=== PATIENT | male | born 1945 | race Caucasian/White ===

== ENCOUNTER → 2016-08-02 | Outpatient (CLI) | payer MEDICARE ==
--- NOTE | 2016-08-02 16:29 | US ---
EXAMINATION TYPE: US thyroid st tissue head/neck DATE OF EXAM: 08/02/2016 4:01 PM COMPARISON: 01/05/2016 CLINICAL HISTORY: Thyroid Nodule E04.1. Follow up thyroid nodules GLAND SIZE: Right Lobe: 4.5 x 1.8 x 2.4cm Overall Parenchyma: heterogenous Left Lobe: 4.5 x 1.9 x 1.8cm Overall Parenchyma: heterogeneous Isthmus Thickness: 0.8cm NODULES RIGHT: # of nodules measured on right: 4 1. 1.4 X 0.9 x 1.2 cm hypoechoic cystic nodule at the upper pole with well-defined margins. This no dule is wider than tall and shows no intranodular vascularity. Prior size: 1.1 x 1.1 x 0.9 cm 2. 1.1 X 0.7 x 0.8 cm hypoechoic cystic nodule at the mid pole with well-defined margins. This nodul e is wider than tall and shows no intranodular vascularity. Prior size: 0.9 x 0.8 x 0.6 cm 3. 0.7 X 0.7 x 0.8 cm hypoechoic cystic nodule at the mid pole with well-defined margins. This nodul e is wider than tall and shows no intranodular vascularity. Prior size: 0.6 x 0.6 x 0.6 cm 4. 1.8 X 1.1 x 1.7 cm hypoechoic mixed nodule at the lower pole with well-defined margins. This nodu le is wider than tall and shows intranodular vascularity. Prior size: 1.5 x 1.6 x 0.9 cm LEFT: # of nodules measured on left: 2 1. 0.8 X 0.7 x 0.7 cm hypoechoic solid nodule at the mid pole with well-defined margins. This nodul e is wider than tall and shows intranodular vascularity. Prior size: 0.9 x 0.7 x 0.6 cm 2. 0.9 X 0.6 x 0.9 cm hypoechoic cystic nodule at the lower pole with well-defined margins. This nod ule is taller than wide and shows no intranodular vascularity. Prior size: 0.8 x 0.9 x 0.9 cm ISTHMUS: # of nodules measured in the isthmus: 0 IMPRESSION: heterogeneous thyroid with bilateral nodules describe above, bilateral neck scanned, no abnormal lymphadenopathy noted.
== END | disposition home or self-care (01) ==
LOC: RADUSWWP 15:34
PROVIDERS: ATTEND Otolaryngology
DX: E04.2 Nontoxic multinodular goiter (principal)
CPT/HCPCS: 76536

== ENCOUNTER 2016-08-21 11:43 | Day surgery (SDC) | payer MEDICARE ==
[2016-08-21 12:49] VITALS: RESP 14; TEMP 97.7
[2016-08-21 14:01] VITALS: BP 140/76; PULSE 69
--- NOTE | 2016-08-21 14:28 | US ---
ULTRASOUND GUIDED FNA THYROID BIOPSY: CLINICAL HISTORY: 1.8 cm right lobe thyroid hypoechoic nodule and 1.4 cm cystic nodule right lobe thy roid FINDINGS: The procedure was explained to the patient. The risks, complications, benefits and alternatives were discussed and any questions were answered. Informed consent was obtained. Patient was placed supin e on the ultrasound table and prepped and draped in the usual sterile fashion. Utilizing a 25 gauge needle, five passes were made into the mixed nodule within the lower pole measuring 1.8 cm. A single pass was made with evidence of the larger simple cyst within the right lobe measuring 1.4 cm. Additi onal cyst measuring 1 cm had a benign simple appearing cyst appearance and was not aspirated. Patient was stable throughout the procedure. Pathology is pending. All elements of maximal barrier technique were utilized. IMPRESSION: 1. Successful ultrasound guided FNA thyroid biopsy of two lesions within the right thyroid.
== END 2016-08-21 14:10 | disposition home or self-care (01) ==
LOC: RADPROMAIN 11:43
PROVIDERS: ATTEND Otolaryngology
DX: E04.2 Nontoxic multinodular goiter (principal)
CPT/HCPCS: 10022; 76942; 88173; 88305

== ENCOUNTER 2017-08-31 12:55 | Observation (INO) | payer MEDICARE ==
[2017-08-31] MEDS ORDERED: SODIUM CHLORIDE 0.9% 1,000 ML IV STA (13:27)
[2017-08-31] MEDS ORDERED: ASPIRIN 81 MG PO STA (13:27)
[2017-08-31] MEDS ORDERED: NITROGLYCERIN SL TABS 0.4 MG TAB SUBLINGUAL STA (13:27)
[2017-08-31 13:50] LABS: Basophils % (A) 1 %; Eosinophils # (A) 0.3 k/uL (0-0.7); Eosinophils % (A) 4 %; HCT 37.8 % (39.0-53.0); HGB 12.2 gm/dL (13.0-17.5); Lymphocytes # (A) 1.5 k/uL (1.0-4.8); Lymphocytes % (A) 24 %; MCH 30.6 pg (25.0-35.0); MCHC 32.3 g/dL (31.0-37.0); MCV 94.6 fL (80.0-100.0); Mean Platelet Volume 8.5; Monocytes # (A) 0.4 k/uL (0-1.0); Monocytes % (A) 6 %; Neutrophils % (A) 63 %; Platelet Count 213 k/uL (150-450); RDW 11.8 % (11.5-15.5); WBC 6.3 k/uL (3.8-10.6)
[2017-08-31 13:59] LABS: Anion Gap 9 mmol/L; Blood Urea Nitrogen 16 mg/dL (9-20); Calcium 9.6 mg/dL (8.4-10.2); Carbon Dioxide 26 mmol/L (22-30); Chloride 108 mmol/L (98-107); Glucose 108 mg/dL (74-99); Magnesium 1.7 mg/dL (1.6-2.3); Potassium 4.4 mmol/L (3.5-5.1); Sodium 143 mmol/L (137-145); Total Protein 6.4 g/dL (6.3-8.2)
--- NOTE | 2017-08-31 13:59 | ED ---
General Adult HPI - General Chief complaint: Chest Pain Stated complaint: Chest Pain Time Seen by Provider: 08/31/17 13:16 Source: patient, RN notes reviewed Mode of arrival: wheelchair Limitations: no limitations - History of Present Illness Initial comments: Patient 72-year-old male who presents emergency room today with a chief complaint of chest pain. He does with that her symptoms been off and on over the past week. He does not that he was having increased pain this morning was told that he should come to the hospital. Patient states that his sharp, dull, and achy type pain. Patient also admits to some symptoms of nausea and abdominal pain at times. He denies anything that seems to make it better or worse. Patient denies any other associated symptoms. Patient denies any recent fever, chills, shortness of breath,vomiting, numbness or tingling, dysuria or hematuria, constipation or diarrhea, headaches or visual changes, or any other complaints. - Related Data Home Medications Medication Instructions Recorded Confirmed Aspirin 81 mg PO DAILY 11/26/14 08/31/17 Multivitamin [Men's Multi-Vitamin] 1 tab PO DAILY 11/26/14 08/31/17 Omeprazole [PriLOSEC] 20 mg PO DAILY 11/26/14 08/31/17 Losartan Potassium [Cozaar] 100 mg PO DAILY 08/04/15 08/31/17 Tamsulosin [Flomax] 0.4 mg PO DAILY 06/27/16 08/31/17 Ergocalciferol (Vitamin D2) 50,000 unit PO Q7D 08/31/17 08/31/17 [Vitamin D2] Previous Rx's Medication Instructions Recorded Fenofibrate Nanocrystallized 145 mg PO DAILY #30 tablet 08/05/15 [Tricor] Allergies Allergy/AdvReac Type Severity Reaction Status Date / Time yeast, dried [yeast] Allergy "PER Verified 08/31/17 13:25 ALLERGY TEST" Review of Systems ROS Statement: Those systems with pertinent positive or pertinent negative responses have been documented in the HPI. ROS Other: All systems not noted in ROS Statement are negative. Past Medical History Past Medical History: GERD/Reflux, Hyperlipidemia, Hypertension, Thyroid Disorder History of Any Multi-Drug Resistant Organisms: None Reported Past Surgical History: Cholecystectomy, Heart Catheterization Additional Past Surgical History / Comment(s): thyroid biopsy, heart cath x3 in past no stents - per pt. Past Anesthesia/Blood Transfusion Reactions: No Reported Reaction Past Psychological History: No Psychological Hx Reported Smoking Status: Former smoker Past Alcohol Use History: Occasional Past Drug Use History: None Reported - Past Family History Father Family Medical History: No Reported History Mother Family Medical History: No Reported History General Exam - General Exam Comments Initial Comments: General: The patient is awake and alert, in no distress, and does not appear acutely ill. Eye: Pupils are equal, round and reactive to light, extra-ocular movements are intact. No nystagmus. There is normal conjunctiva bilaterally. No signs of icterus. Ears, nose, mouth and throat: There are moist mucous membranes and no oral lesions. Neck: The neck is supple, there is no tenderness or JVD. Cardiovascular: There is a regular rate and rhythm. No murmur, rub or gallop is appreciated. Respiratory: Lungs are clear to auscultation, respirations are non-labored, breath sounds are equal. No wheezes, stridor, rales, or rhonchi. Gastrointestinal: Soft, non-distended, non-tender abdomen without masses or organomegaly noted. There is no rebound or guarding present. No CVA tenderness. Musculoskeletal: Normal ROM, no tenderness. Strength 5/5. Sensation intact. Pulses equal bilaterally 2+. Neurological: A&O x 3. CN II-XII intact, There are no obvious motor or sensory deficits. Coordination appears grossly intact. Speech is normal. Skin: Skin is warm and dry and no rashes or lesions are noted. Psychiatric: Cooperative, appropriate mood & affect, normal judgment. Limitations: no limitations Course Vital Signs 08/31/17 08/31/17 08/31/17 12:56 14:11 14:15 Temperature 98.5 F Pulse Rate 82 74 78 Respiratory 18 16 16 Rate Blood Pressure 152/65 148/75 81/47 O2 Sat by Pulse 98 98 97 Oximetry 08/31/17 14:48 Temperature Pulse Rate 71 Respiratory 16 Rate Blood Pressure 128/78 O2 Sat by Pulse Oximetry EKG Findings - EKG Comments: EKG Findings:: EKG performed at 1312: Shows normal sinus rhythm at 72 bpm. [place] interval 140. QRS 74. QT/QTc is 366/400. No acute ST elevation. Medical Decision Making - Medical Decision Making Patient reexamined at this time shows no signs of distress. He was given a nitro tablet here in the emergency room which did relieve his chest pain. However, it did drop his blood pressure down in the 70s over 50s. He was given a 500 mL bolus and blood pressure is improved at this time currently 112/60's. Patient's initial set of cardiac enzymes are negative. He does admit that he's been having some pain off and on here the last few weeks. He does describe some unstable angina symptoms. Patient did have cardiac cath in June 2016. At this time patient will be admitted for observation and serial enzymes. - Lab Data Result diagrams: 08/31/17 13:30 08/31/17 13:30 Lab Results 08/31/17 08/31/17 08/31/17 Range/Units 13:30 13:30 13:30 WBC 6.3 (3.8-10.6) k/uL RBC 4.00 L (4.30-5.90) m/uL Hgb 12.2 L (13.0-17.5) gm/dL Hct 37.8 L (39.0-53.0) % MCV 94.6 (80.0-100.0) fL MCH 30.6 (25.0-35.0) pg MCHC 32.3 (31.0-37.0) g/dL RDW 11.8 (11.5-15.5) % Plt Count 213 (150-450) k/uL Neutrophils % 63 % Lymphocytes % 24 % Monocytes % 6 % Eosinophils % 4 % Basophils % 1 % Neutrophils # 4.0 (1.3-7.7) k/uL Lymphocytes # 1.5 (1.0-4.8) k/uL Monocytes # 0.4 (0-1.0) k/uL Eosinophils # 0.3 (0-0.7) k/uL Basophils # 0.0 (0-0.2) k/uL PT (9.0-12.0) sec INR (<1.2) APTT (22.0-30.0) sec Sodium 143 (137-145) mmol/L Potassium 4.4 (3.5-5.1) mmol/L Chloride 108 H (98-107) mmol/L Carbon Dioxide 26 (22-30) mmol/L Anion Gap 9 mmol/L BUN 16 (9-20) mg/dL Creatinine 1.20 (0.66-1.25) mg/dL Est GFR (MDRD) Af Amer >60 (>60 ml/min/1.73 sqM) Est GFR (MDRD) Non-Af 60 (>60 ml/min/1.73 sqM) Glucose 108 H (74-99) mg/dL Calcium 9.6 (8.4-10.2) mg/dL Magnesium 1.7 (1.6-2.3) mg/dL Total Bilirubin 0.4 (0.2-1.3) mg/dL AST 25 (17-59) U/L ALT 30 (21-72) U/L Alkaline Phosphatase 53 (38-126) U/L Total Creatine Kinase 86 (55-170) U/L CK-MB (CK-2) 0.5 (0.0-2.4) ng/mL CK-MB (CK-2) Rel Index 0.6 Troponin I <0.012 (0.000-0.034) ng/mL Total Protein 6.4 (6.3-8.2) g/dL Albumin 3.9 (3.5-5.0) g/dL Amylase 46 (30-110) U/L Lipase 77 (23-300) U/L 08/31/17 Range/Units 13:30 WBC (3.8-10.6) k/uL RBC (4.30-5.90) m/uL Hgb (13.0-17.5) gm/dL Hct (39.0-53.0) % MCV (80.0-100.0) fL MCH (25.0-35.0) pg MCHC (31.0-37.0) g/dL RDW (11.5-15.5) % Plt Count (150-450) k/uL Neutrophils % % Lymphocytes % % Monocytes % % Eosinophils % % Basophils % % Neutrophils # (1.3-7.7) k/uL Lymphocytes # (1.0-4.8) k/uL Monocytes # (0-1.0) k/uL Eosinophils # (0-0.7) k/uL Basophils # (0-0.2) k/uL PT 10.1 (9.0-12.0) sec INR 1.0 (<1.2) APTT 23.0 (22.0-30.0) sec Sodium (137-145) mmol/L Potassium (3.5-5.1) mmol/L Chloride (98-107) mmol/L Carbon Dioxide (22-30) mmol/L Anion Gap mmol/L BUN (9-20) mg/dL Creatinine (0.66-1.25) mg/dL Est GFR (MDRD) Af Amer (>60 ml/min/1.73 sqM) Est GFR (MDRD) Non-Af (>60 ml/min/1.73 sqM) Glucose (74-99) mg/dL Calcium (8.4-10.2) mg/dL Magnesium (1.6-2.3) mg/dL Total Bilirubin (0.2-1.3) mg/dL AST (17-59) U/L ALT (21-72) U/L Alkaline Phosphatase (38-126) U/L Total Creatine Kinase (55-170) U/L CK-MB (CK-2) (0.0-2.4) ng/mL CK-MB (CK-2) Rel Index Troponin I (0.000-0.034) ng/mL Total Protein (6.3-8.2) g/dL Albumin (3.5-5.0) g/dL Amylase (30-110) U/L Lipase (23-300) U/L Disposition Clinical Impression: Chest pain Disposition: ADMITTED IP TO THIS [facility] Condition: Good Instructions: Chest Pain (ED) Referrals: Andres Brown MD [Primary Care Provider] - 1-2 days Time of Disposition: 15:00
[2017-08-31 14:00] LABS: ALT 30 U/L (21-72); AST 25 U/L (17-59); Albumin 3.9 g/dL (3.5-5.0); Alkaline Phosphatase 53 U/L (38-126); Amylase 46 U/L (30-110); Lipase 77 U/L (23-300); Total Bilirubin 0.4 mg/dL (0.2-1.3)
[2017-08-31 14:04] LABS: Prothrombin Time 10.1 sec (9.0-12.0)
--- NOTE | 2017-08-31 14:05 | XR ---
EXAMINATION TYPE: XR chest 2V DATE OF EXAM: 08/31/2017 HISTORY: Chest Pain. REFERENCE: Previous study dated 121. FINDINGS: The lungs are overinflated. The heart is normal in size. The lungs are clear. Pleural space are clear. IMPRESSION: COPD.
[2017-08-31 14:17] LABS: Creatine Kinase 86 U/L (55-170)
[2017-08-31 14:29] LABS: Creatine Kinase MB 0.5 ng/mL (0.0-2.4); Troponin I <0.012 ng/mL (0.000-0.034)
[2017-08-31] MEDS ORDERED: NITROGLYCERIN SL TABS 0.4 MG TAB SUBLINGUAL PRN (15:02)
[2017-08-31] MEDS ORDERED: SODIUM CHLORIDE 0.9% 1,000 ML IV ONE (15:02)
[2017-08-31] MEDS ORDERED: HEPARIN SODIUM,PORCINE 5,000 UNIT/ML 1 ML VIAL IV ONE (15:02)
[2017-08-31] MEDS ORDERED: HEPARIN SOD,PORK IN 0.45% NACL 25,000 UNIT in 0.45% NACL 1 500ML.BAG IV SCH (15:15)
[2017-08-31] MEDS ORDERED: MORPHINE SULFATE 4 MG/ML SYRINGE IV STA (15:32)
[2017-08-31] MEDS ORDERED: NITROGLYCERIN OINT 1 INCH/GM PACKET TOPICAL STA (16:13)
[2017-08-31 21:08] LABS: Creatine Kinase MB 0.4 ng/mL (0.0-2.4); Troponin I <0.012 ng/mL (0.000-0.034)
[2017-08-31 21:09] LABS: Creatine Kinase 78 U/L (55-170)
[2017-08-31] MEDS: HEPARIN SODIUM,PORCINE 5,000 UNIT/ML 1 ML VIAL IV PRN (22:15)
[2017-09-01 03:29] LABS: Basophils # (A) 0.1 k/uL (0-0.2); Basophils % (A) 1 %; Eosinophils # (A) 0.3 k/uL (0-0.7); Eosinophils % (A) 5 %; HCT 37.7 % (39.0-53.0); HGB 12.1 gm/dL (13.0-17.5); Lymphocytes # (A) 2.5 k/uL (1.0-4.8); Lymphocytes % (A) 46 %; MCH 29.9 pg (25.0-35.0); MCHC 32.2 g/dL (31.0-37.0); Mean Platelet Volume 9.2; Monocytes # (A) 0.3 k/uL (0-1.0); Monocytes % (A) 6 %; Neutrophils # (A) 2.3 k/uL (1.3-7.7); Neutrophils % (A) 41 %; Platelet Count 193 k/uL (150-450); RBC 4.05 m/uL (4.30-5.90); RDW 11.8 % (11.5-15.5); WBC 5.5 k/uL (3.8-10.6)
[2017-09-01 03:49] LABS: Creatine Kinase 71 U/L (55-170)
[2017-09-01 03:55] LABS: Cholesterol 181 mg/dL (<200); HDL Cholesterol 40 mg/dL (40-60); Triglycerides 197 mg/dL (<150)
[2017-09-01 03:56] LABS: LDL Cholesterol,Calculated 102 mg/dL (0-99)
[2017-09-01] MEDS: HEPARIN SODIUM,PORCINE 5,000 UNIT/ML 1 ML VIAL IV PRN (03:57)
[2017-09-01 04:02] LABS: Creatine Kinase MB 0.5 ng/mL (0.0-2.4); Troponin I <0.012 ng/mL (0.000-0.034)
[2017-09-01] MEDS ORDERED: TAMSULOSIN 0.4 MG CAP.ER.24H PO SCH (09:00)
[2017-09-01] MEDS ORDERED: MULTIVITAMINS, THERA 1 EACH TAB PO SCH (09:00)
[2017-09-01] MEDS ORDERED: ASPIRIN 325 MG TAB PO SCH (09:00)
[2017-09-01] MEDS ORDERED: ERGOCALCIFEROL 50,000 UNIT CAP PO SCH (09:00)
[2017-09-01] MEDS ORDERED: LOSARTAN 50 MG TAB PO SCH (09:00)
[2017-09-01] MEDS ORDERED: ASPIRIN 81 MG PO SCH (09:00)
[2017-09-01] MEDS ORDERED: FENOFIBRATE 160 MG TAB PO SCH (09:30)
[2017-09-01] MEDS ORDERED: PANTOPRAZOLE 40 MG TABLET PO SCH (09:30)
--- NOTE | 2017-09-01 10:49 | CONS ---
CONSULTATION This is a 72-year-old gentleman, a patient who sees Dr. Brown from a primary care standpoint and Dr. Kauffman from a cardiac standpoint. This gentleman had a cardiac cath on June 28, 2016, which revealed mild noncritical disease in the LAD with normal LV systolic function, ejection fraction of 60%. Prior to that in July of 2015, he had a Lexiscan stress test which was normal and also a CT angiography as well. He is reasonably active person. He came into the hospital yesterday with complaints of chest pressure. He has been lifting some heavy appliances and after doing some heavy work, he came home and started feeling some pressure in the chest area. With this, he came into the hospital. After arrival because of the pain, the emergency room physician gave him a nitroglycerin which dropped his blood pressure, required fluid boluses. He is comfortable resting at this time, has no further pain, but there is tenderness on his left anterior chest wall. He did do some lifting of heavy appliances. He also has other day of problems in the form of hypothyroidism, correction is not hyper or his other way of problems in the form of hypertension, hyperlipidemia, gastroesophageal reflux disease, and unremarkable cardiac cath from June 2016. MEDICATIONS: At home include TriCor, aspirin, multivitamins, losartan 100 mg daily, Flomax 0.4 mg daily, vitamin D and 81 mg of aspirin daily. ALLERGIES: No known drug allergies. EXAMINATION: Pressure is 130/70, pulse rate is 64 per minute. No orthostatic changes. HEENT: Unremarkable. Fundus was not examined by me. NECK: Supple. There is no JVD. I do not hear any carotid bruit. There is no thyromegaly. Heart exam reveals S1, S2 heard normally with a short systolic murmur at the left sternal border. Lungs are clear. Abdomen is soft, nontender. Lower extremities reveal diminished pulses. No edema. Central nervous system grossly within normal limits without any focal deficits. IMPRESSION: 1. Chest wall pain seems musculoskeletal, not suggestive of angina with 2 normal troponins. 2. Hypertension. 3. Hyperlipidemia. 4. History of unremarkable cardiac cath June 2016. RECOMMENDATIONS: I am recommending that we can feed the patient, increase activity and discharge him and have him follow up with Dr. Kauffman. Apparently he has an appointment scheduled sometime next week. Advised to take Naprosyn 220 mg b.i.d. for 3 days for his chest wall musculoskeletal pain. Advised to call if there is a question, concern, or problem. EKG initially had some artifact, but repeat EKGs are unremarkable for any ischemic changes and the troponins are also unremarkable. There is evidence of some sinus arrhythmia, nonspecific ST abnormality and some PACs. CHRISTY / SHARIN: [id number] /
[2017-09-01 16:09] VITALS: BP 116/68; PULSE 60; RESP 16; TEMP 97.7
--- NOTE | 2017-09-02 12:22 | P.DS ---
Providers Date of admission: 08/31/17 15:11 Expected date of discharge: 09/02/17 Attending physician: Andres Brown Consults: 08/31/17 15:02 Consult Physician Stat Consulting Provider: [facility] Consult Reason/Comments: chest pain Do you want consulting provider notified?: Yes Primary care physician: Andres [facility] Course: this is a 72-year-old gentleman with past medical history noted below significant for essential hypertension, hyperlipidemia, and GERD who presented to the hospital with chest pain. Patient said that his pain started after he was lifting some heavy appliances at work. Patient described his pain as heaviness in the middle of her chest. There was no radiation. He was evaluated in the emergency room and 12 leads EKG showed no acute ischemic changes. Serial troponin were negative 2 sets. Patient was evaluated in the emergency room and was placed in observation. He was seen and evaluated by cardiology. He had a left heart catheterization in June 2016 showing nonobstructive coronary artery disease. His chest pain was thought to be atypical in nature. He was cleared by cardiology for discharge home. He will follow-up in the office as scheduled next week. Patient Condition at Discharge: Good Plan - Discharge Summary Discharge Rx Participant: No New Discharge Prescriptions: No Action Aspirin 81 mg PO DAILY Omeprazole [PriLOSEC] 20 mg PO DAILY Multivitamin [Men's Multi-Vitamin] 1 tab PO DAILY Losartan Potassium [Cozaar] 100 mg PO DAILY Fenofibrate Nanocrystallized [Tricor] 145 mg PO DAILY #30 tablet Tamsulosin [Flomax] 0.4 mg PO DAILY Ergocalciferol (Vitamin D2) [Vitamin D2] 50,000 unit PO Q7D Discharge Medication List Aspirin 81 mg PO DAILY 11/26/14 [History] Multivitamin [Men's Multi-Vitamin] 1 tab PO DAILY 11/26/14 [History] Omeprazole [PriLOSEC] 20 mg PO DAILY 11/26/14 [History] Losartan Potassium [Cozaar] 100 mg PO DAILY 08/04/15 [History] Fenofibrate Nanocrystallized [Tricor] 145 mg PO DAILY #30 tablet 08/05/15 [Rx] Tamsulosin [Flomax] 0.4 mg PO DAILY 06/27/16 [History] Ergocalciferol (Vitamin D2) [Vitamin D2] 50,000 unit PO Q7D 08/31/17 [History] Follow up Appointment(s)/Referral(s): Sanjay Kauffman MD [STAFF PHYSICIAN] - 09/03/17 9:00 am Andres Brown MD [Primary Care Provider] - 1-2 days (As per Dr. Patino, Protonix prescription will be escribed on 09/02/17) Patient Instructions/Handouts: Chest Pain (ED) Discharge Disposition: HOME SELF-CARE
--- NOTE | 2017-09-02 12:22 | P.HPIM ---
History of Present Illness H&P Date: 09/02/17 Chief Complaint: Chest pain This is a late entry history and physical : date of services 09/01/2017 this is a 72-year-old gentleman with past medical history noted below significant for essential hypertension, hyperlipidemia, and GERD who presented to the hospital with chest pain. Patient said that his pain started after he was lifting some heavy appliances at work. Patient described his pain as heaviness in the middle of her chest. There was no radiation. He was evaluated in the emergency room and 12 leads EKG showed no acute ischemic changes. Serial troponin were negative 2 sets. Patient was evaluated in the emergency room and was placed in observation. He was seen and evaluated by cardiology. He had a left heart catheterization in June 2016 showing nonobstructive coronary artery disease. His chest pain was thought to be atypical in nature. He was cleared by cardiology for discharge home. He will follow-up in the office as scheduled next week. Review of Systems Review of system: 14 points review of systems were obtained and were negative except to what were mentioned in the HPI. Past Medical History Past Medical History: GERD/Reflux, Hyperlipidemia, Hypertension, Thyroid Disorder History of Any Multi-Drug Resistant Organisms: None Reported Past Surgical History: Cholecystectomy, Heart Catheterization Additional Past Surgical History / Comment(s): thyroid biopsy, heart cath x3 in past no stents - per pt. Past Anesthesia/Blood Transfusion Reactions: No Reported Reaction Past Psychological History: No Psychological Hx Reported Smoking Status: Former smoker Past Alcohol Use History: Occasional Additional Past Alcohol Use History / Comment(s): STARTED SMOKING AT AGE 14 QUIT 2006 SMOKED 1-1 1 /2 PPD Past Drug Use History: None Reported - Past Family History Father Family Medical History: No Reported History Mother Family Medical History: No Reported History Medications and Allergies Home Medications Medication Instructions Recorded Confirmed Type Aspirin 81 mg PO DAILY 11/26/14 08/31/17 History Multivitamin [Men's Multi-Vitamin] 1 tab PO DAILY 11/26/14 08/31/17 History Omeprazole [PriLOSEC] 20 mg PO DAILY 11/26/14 08/31/17 History Losartan Potassium [Cozaar] 100 mg PO DAILY 08/04/15 08/31/17 History Fenofibrate Nanocrystallized 145 mg PO DAILY #30 tablet 08/05/15 08/31/17 Rx [Tricor] Tamsulosin [Flomax] 0.4 mg PO DAILY 06/27/16 08/31/17 History Ergocalciferol (Vitamin D2) 50,000 unit PO Q7D 08/31/17 08/31/17 History [Vitamin D2] Allergies Allergy/AdvReac Type Severity Reaction Status Date / Time yeast, dried [yeast] Allergy "PER Verified 08/31/17 13:25 ALLERGY TEST" Physical Exam Vitals: Vital Signs Temp Pulse Resp BP Pulse Ox 09/01/17 16:00 97.7 F 60 16 116/68 98 Intake and Output 09/01/17 09/02/17 09/02/17 22:59 06:59 14:59 Other: Voiding Method Toilet General: The patient is awake and alert, in no distress Eye: there is normal conjunctiva bilaterally. Neck: The neck is supple, there is no JVD. Cardiovascular: Normal S1-S2, no S3-S4, no murmurs. Respiratory: Lungs clear to auscultation bilaterally Gastrointestinal: Abdomen is soft, nontender Musculoskeletal: There is no pedal edema. Neurological:. Speech is normal. Skin: Skin is warm and dry Results CBC & Chem 7: 09/01/17 03:15 08/31/17 13:30 Thrombosis Risk Factor Assmnt - Choose All That Apply Any of the Below Risk Factors Present?: Yes Each Factor Represents 1 point: Obesity (BMI >25) Other Risk Factors: Yes Each Risk Factor Represents 2 Points: Age 61-74 years Thrombosis Risk Factor Assessment Total Risk Factor Score: 3 Thrombosis Risk Factor Assessment Level: Moderate Risk Assessment and Plan Assessment: this is a 72-year-old gentleman with past medical history noted below significant for essential hypertension, hyperlipidemia, and GERD who presented to the hospital with chest pain. Patient said that his pain started after he was lifting some heavy appliances at work. Patient described his pain as heaviness in the middle of her chest. There was no radiation. He was evaluated in the emergency room and 12 leads EKG showed no acute ischemic changes. Serial troponin were negative 2 sets. Patient was evaluated in the emergency room and was placed in observation. He was seen and evaluated by cardiology. He had a left heart catheterization in June 2016 showing nonobstructive coronary artery disease. His chest pain was thought to be atypical in nature. He was cleared by cardiology for discharge home. He will follow-up in the office as scheduled next week.
== END 2017-09-01 18:35 | disposition home or self-care (01) ==
LOC: EC 12:55 → 3OBS 15:11
PROVIDERS: ADMIT Internal Medicine; ATTEND Internal Medicine
DX: R07.89 Other chest pain (principal); R11.0 Nausea; R10.9 Unspecified abdominal pain; R03.1 Nonspecific low blood-pressure reading; K21.9 Gastro-esophageal reflux disease without esophagitis; E78.5 Hyperlipidemia, unspecified; I10 Essential (primary) hypertension; E03.9 Hypothyroidism, unspecified; E66.9 Obesity, unspecified; Z68.35 Body mass index [BMI] 35.0-35.9, adult; I25.10 Atherosclerotic heart disease of native coronary artery without angina pectoris; Z79.82 Long term (current) use of aspirin; Z79.899 Other long term (current) drug therapy; Z91.018 Allergy to other foods; Z87.891 Personal history of nicotine dependence; X50.0XXA Overexertion from strenuous movement or load, initial encounter
CPT/HCPCS: 99285; 96361 ×2; 96376 ×2; 96375 ×2; 96365 ×2; 96366 ×4; 36415; 93005; 80061; 80053; 82150; 82550 ×2; 82553 ×2; 83690; 83735; 84484 ×2; 85025 ×2; 85610; 85730 ×2; 71046; G0378 ×2; J2270; J1644 ×3

== ENCOUNTER → 2017-09-19 | Outpatient (CLI) | payer MEDICARE ==
--- NOTE | 2017-09-19 13:08 | MR ---
EXAMINATION TYPE: MR lumbar spine wo con DATE OF EXAM: 09/19/2017 COMPARISON: NONE HISTORY: Lumbago with sciatica, left side TECHNIQUE: Multiplanar, multisequence images of the lumbar spine were acquired. L1-L2: Facet arthropathy contacts the posterior aspect of the thecal sac, no significant foraminal en croachment or central stenosis. Posterior broad-based disc bulge causes minimal mass effect on the an terior thecal sac. L2-L3: Posterior extension of endplate disc complex results in mild anterior mass effect on the theca l sac. Circumferential extension of endplate disc complex is present, there is broad-based disc bulge causing mild anterior mass effect on the thecal sac. L3-L4: Loss of disc signal is present compatible with disc desiccation. Epidural fat is prominent res ulting in a narrowed thecal sac. No significant foraminal encroachment. There is some facet arthropat hy. L4-L5: Facet arthropathy with hypertrophy ligamentum flavum encroaches greater on the lateral recess on the left, narrowing of the thecal sac is present due to the epidural fat. Circumferential extensio n of endplate disc complex results in marked left-sided foraminal encroachment. No significant centra l stenosis. L5-S1: Some loss of disc height and signal present with vacuum phenomenon, circumferential extension of endplate disc complex results in foraminal encroachment greater on the right likely contributed by the spinal curvature. There is facet arthropathy present. No significant central stenosis. Posterior extension of endplate disc complex may contact the anterior thecal sac. Lumbar segments are intact. No paraspinal masses are identified. Conus medullaris has a normal appe arance. There is multilevel spondylosis present. There is a mild spinal curvature present. Loss of di sc height and signal is greatest at L4-5 with associated vacuum phenomenon. Multilevel discogenic mar row signal changes are present. There are findings compatible with epidural lipomatosis, narrowing of the thecal sac is noted at multiple levels due to fat deposition in the epidural space, especially L 3 L5. IMPRESSION: Degenerative disc disease, facet arthropathy, multilevel foraminal encroachment, scoliosis. Epidural lipomatosis as described.
== END | disposition home or self-care (01) ==
LOC: RADMRIMAIN 12:06
PROVIDERS: ATTEND Internal Medicine
DX: M51.16 Intervertebral disc disorders with radiculopathy, lumbar region (principal); M46.86 Other specified inflammatory spondylopathies, lumbar region; E88.2 Lipomatosis, not elsewhere classified; M41.86 Other forms of scoliosis, lumbar region
CPT/HCPCS: 72148

== ENCOUNTER → 2018-03-19 | Outpatient (CLI) | payer MEDICARE ==
--- NOTE | 2018-03-19 10:14 | XR ---
EXAMINATION TYPE: XR thoracic spine complete DATE OF EXAM: 03/19/2018 COMPARISON: NONE HISTORY: Pain Alignment is anatomic. There is no compression deformities. Vertebral body height and disc interspa marilyn are maintained. Multilevel hypertrophic and degenerative changes of the spine. Curvature the spi ne noted. Appears to be a degenerative change involving the lower cervical spine. IMPRESSION: 1. Multilevel degenerative disc disease..
--- NOTE | 2018-03-19 10:18 | XR ---
EXAMINATION TYPE: XR cervical spine comp DATE OF EXAM: 03/19/2018 COMPARISON: NONE HISTORY: Pain TECHNIQUE: Four views are submitted. FINDINGS: The odontoid is intact. There are no compression deformities. The prevertebral soft tissue structur es are within normal limits. Calcifications in the soft tissues of the neck noted likely related to atherosclerotic changes of the carotid arteries. There appears to be fusion at C5-C6 with multilevel degenerative and hypertrophic changes. Severe deg enerative disc disease C6-C7. There is loss the normal cervical lordosis. Multilevel facet arthropath y noted. Multilevel foraminal encroachment. IMPRESSION: 1. Multilevel degenerative disc disease. Correlate for previous surgery at C5-C6. Otherwise, consider congenital fusion. Multilevel foraminal encroachment.
== END | disposition home or self-care (01) ==
LOC: RADXRMAIN 09:49
PROVIDERS: ATTEND Internal Medicine
DX: M51.34 Other intervertebral disc degeneration, thoracic region (principal); M50.323 Other cervical disc degeneration at C6-C7 level
CPT/HCPCS: 72050; 72072

== ENCOUNTER 2018-05-28 08:01 | Day surgery (SDC) | payer MEDICARE ==
[2018-05-22 11:33] VITALS: BMI 34.4
[~2018-05-28 08:01] MED LIST: LACTATED RINGERS 1,000 ML IV SCH; LIDOCAINE 1% 20 ML VIAL (10MG/ML) FOR IV START INTRADERMA PRN
[2018-05-28] MEDS ORDERED: LACTATED RINGERS 1,000 ML IV ONE (08:15)
[2018-05-28 08:23] VITALS: TEMP 98
[2018-05-28] MEDS ORDERED: PROPOFOL 10 MG/ML 20 ML VIAL IV ONE (09:44)
[2018-05-28] MEDS ORDERED: LIDOCAINE 1% INJ 10MG/ML (20 ML MDV) ONE (09:44)
--- NOTE | 2018-05-28 09:47 | P.GSHP ---
History of Present Illness H&P Date: 05/28/18 Chief Complaint: GI bleed This a 73-year-old male presents today for EGD and colonoscopy. Patient states that he had rectal bleeding several weeks ago. Patient not had any bleeding since then. He presents today for EGD and colonoscopy. Past Medical History Past Medical History: Chest Pain / Angina, GERD/Reflux, GI Bleed, Hyperlipidemia , Hypertension, Thyroid Disorder Additional Past Medical History / Comment(s): asthmatic bronchitis stage 1 History of Any Multi-Drug Resistant Organisms: None Reported Past Surgical History: Cholecystectomy, Heart Catheterization Additional Past Surgical History / Comment(s): thyroid biopsy x2, heart cath x3 in past no stents - per pt. Past Anesthesia/Blood Transfusion Reactions: No Reported Reaction Smoking Status: Former smoker - Past Family History Father Family Medical History: No Reported History Mother Family Medical History: No Reported History Medications and Allergies Home Medications Medication Instructions Recorded Confirmed Type Omeprazole [PriLOSEC] 20 mg PO DAILY 11/26/14 05/22/18 History Losartan Potassium [Cozaar] 100 mg PO DAILY 08/04/15 05/22/18 History Fenofibrate Nanocrystallized 145 mg PO DAILY #30 tablet 08/05/15 05/22/18 Rx [Tricor] Tamsulosin [Flomax] 0.4 mg PO DAILY 06/27/16 05/22/18 History Aspirin 325 mg PO DAILY 05/22/18 05/22/18 History Fluticasone/Vilanterol [Breo 1 inhalation PO Q24HR PRN 05/22/18 05/22/18 History Ellipta 100-25 Mcg Inhaler] Ipratropium/Albuterol Sulfate 1 puff INHALATION DAILY PRN 05/22/18 05/22/18 History [Combivent Respimat Inhaler] Isosorbide Mononitrate ER [Imdur] 30 mg PO DAILY 05/22/18 05/22/18 History Allergies Allergy/AdvReac Type Severity Reaction Status Date / Time yeast, dried [yeast] Allergy "PER Verified 05/22/18 11:16 ALLERGY TEST" Surgical - Exam Vital Signs Temp Pulse Resp BP Pulse Ox 98.0 F 78 18 170/90 97 05/28/18 08:22 05/28/18 08:22 05/28/18 08:22 05/28/18 08:22 05/28/18 08:22 - General well developed, no distress - Eyes PERRL - ENT normal pinna, normal mucosa - Neck no masses - Respiratory normal expansion - Cardiovascular Rhythm: regular - Abdomen Abdomen: soft, non tender Assessment and Plan Assessment: GI bleed. We'll perform EGD and colonoscopy.
--- NOTE | 2018-05-28 10:17 | P.OP ---
Date of Procedure: 05/28/18 Preoperative Diagnosis: GI bleed Postoperative Diagnosis: Antral gastritis Diverticulosis Procedure(s) Performed: EGD Colonoscopy Anesthesia: MAC Surgeon: Elio Hawkins Pathology: other (Antrum) Condition: stable Disposition: PACU Description of Procedure: Patient's placed on the endoscopy table in the lateral position. He received IV sedation. The gastroscope placed oropharynx and passed in the esophagus and into the stomach. The scope was then placed through the pylorus. The first and second portion of the duodenum appeared normal. Scope was then brought back the antrum and there is some minimal inflammation. The scope was then retroflexed and the remainder stomach appeared normal. There is no evidence of any upper GI bleed. The GE junction was at 47 is. There was no significant hiatal hernia. The distal esophagus. Normal. The proximal esophagus. Normal. Scope withdrawn for patient. Next digital rectal exam was performed which revealed no abnormalities. Flexible colonoscope was then placed patient anus and passed throughout the entire colon. The ileocecal valve was visualized. The cecum, ascending and transverse colon appeared normal. In the descending and sigmoid colon there was moderate diverticular changes. Scope was then brought back the rectum and this appeared normal. Scope was withdrawn for patient. No obvious source of GI bleed was seen. It is presumed that he may have had a diverticular bleed experienced rectal bleeding.
[2018-05-28 10:26] VITALS: RESP 16
[2018-05-28 10:50] VITALS: BP 125/73; PULSE 61
--- NOTE | 2018-05-30 15:52 | CDI ---
Outpatient Documentation Clarification Form Date: 05/30/18 CDS/Vice President Of Software Engineering Name: Nita Kurtz Phone: If any questions, call Shahana Hamilton Physician Vice President at [phone] Patient Name: Trevon Rocha Admit Date: 05/28/18 Discharge Date: 05/28/18 ATTENTION: The [facility] Coding Staff appreciate your assistance in clarifying documentation. Please respond to the clarification below the line at the bottom and electronically sign. The [facility] Coding staff will review the response and follow-up if needed. Please note: Queries are made part of the Legal Health Record. If you have any questions, please contact the Physician Vice President. Dear Dr. Hawkins, The Path Report leads me to believe that a biopsy may have been performed during the EGD. The Op Report does not describe any biopsy. Was a biopsy performed during the EGD? If so, please describe the exact location and method. Thank you for your kind consideration. addendum made MTDD
== END 2018-05-28 11:18 | disposition home or self-care (01) ==
LOC: ORWHC2ENDO 08:01
PROVIDERS: ATTEND Surgery
DX: K31.9 Disease of stomach and duodenum, unspecified (principal); K57.31 Diverticulosis of large intestine without perforation or abscess with bleeding; K29.70 Gastritis, unspecified, without bleeding; K21.9 Gastro-esophageal reflux disease without esophagitis; E78.5 Hyperlipidemia, unspecified; I10 Essential (primary) hypertension; E07.9 Disorder of thyroid, unspecified; J44.9 Chronic obstructive pulmonary disease, unspecified; I25.119 Atherosclerotic heart disease of native coronary artery with unspecified angina pectoris; N40.0 Benign prostatic hyperplasia without lower urinary tract symptoms; Z79.82 Long term (current) use of aspirin; Z79.899 Other long term (current) drug therapy; Z90.49 Acquired absence of other specified parts of digestive tract; Z87.891 Personal history of nicotine dependence; Z91.018 Allergy to other foods
CPT/HCPCS: 88305; 45378; 43239; J2001; J2704

== ENCOUNTER → 2018-06-17 | Outpatient (CLI) | payer MEDICARE ==
--- NOTE | 2018-06-17 15:46 | XR ---
EXAM TYPE: LUMBAR SPINE X RAY SERIES COMPARISON: NONE HISTORY: Lumbago TECHNIQUE: 4 views are submitted. FINDINGS: Severe degenerative disc disease L5-S1 and L4-5 with hypertrophic spurring and severe facet arthropat hy. Foraminal encroachment suspected. Moderate hypertrophic degenerative disc disease at remaining le vels. Hypertrophic spurring at all levels. There are vascular calcifications. Minimal anterolisthesis L5 on S1 appears degenerative. Calcification overlying the left transverse pr ocess of L2 could represent a ureteral stone. IMPRESSION: 1. Severe multilevel degenerative disc disease with suspected foraminal encroachment. 2. Possible 2 mm left proximal ureteral calculus.
== END | disposition home or self-care (01) ==
LOC: RADXRMAIN 15:16
PROVIDERS: ATTEND Internal Medicine
DX: M51.36 Other intervertebral disc degeneration, lumbar region (principal)
CPT/HCPCS: 72110

== ENCOUNTER 2018-10-28 11:14 | Day surgery (SDC) | payer MEDICARE ==
[2018-10-24 11:44] VITALS: BMI 34.4
[~2018-10-28 11:14] MED LIST changes: -LIDOCAINE 1% 20 ML VIAL (10MG/ML) FOR IV START INTRADERMA PRN
[2018-10-28 11:39] VITALS: TEMP 96.9
[2018-10-28] MEDS ORDERED: PROPOFOL 10 MG/ML 20 ML VIAL IV ONE (12:40)
[2018-10-28] MEDS ORDERED: LIDOCAINE 1% INJ 10MG/ML (20 ML MDV) ONE (12:40)
[2018-10-28 13:07] VITALS: RESP 18
--- NOTE | 2018-10-28 13:08 | P.PCN ---
Date of Procedure: 10/28/18 Procedure(s) Performed: Procedure: Esophagogastroduodenoscopy and biopsy. Preoperative diagnosis: Epigastric pain. Postoperative diagnosis: 1. Small sliding hiatal hernia with no obvious esophagitis or complicated reflux disease mild antral gastritis. 2. Multiple biopsies obtained from the duodenum, antrum and esophagus. Preparation sedation: Was provided by anesthesia. Brief clinical history: The patient is 73-year-old male who is scheduled for this evaluation because of epigastric and upper abdominal pains. He had an upper endoscopy and colonoscopy last year with finding of gastritis. This evaluation is requested to rule out complicated reflux disease or other pathology. Procedure: With the patient on his left lateral decubitus position and after informed consent and adequate sedation, I passed the Olympus-GIF H 190 video upper endoscope through the cricopharyngeus down the esophagus. GE junction was around 41 cm from the incisors and there was a small sliding hiatal hernia but no obvious esophagitis or complicated reflux disease. The endoscope was then passed into the stomach which was insufflated with air and inspected in detail including the retroflex view in the cardia. There was some mottling and erythema in the antrum but no ulcers or erosions. Pyloric channel, duodenal bulb, post bulbar area and descending duodenum appeared within normal limits. I obtained biopsies from the duodenum, antrum and esophagus then the endoscope was withdrawn. The patient tolerated the procedure well. Plan: The patient was reassured. Will await biopsy results. He will follow up with you as planned and I will be happy to see in the office of his symptoms persist.
[2018-10-28 13:39] VITALS: BP 129/64; PULSE 58
== END 2018-10-28 13:59 | disposition home or self-care (01) ==
LOC: ORWHC2ENDO 11:14
DX: R10.13 Epigastric pain (principal); I10 Essential (primary) hypertension; E07.9 Disorder of thyroid, unspecified; K44.9 Diaphragmatic hernia without obstruction or gangrene; I25.10 Atherosclerotic heart disease of native coronary artery without angina pectoris; E78.5 Hyperlipidemia, unspecified; K21.9 Gastro-esophageal reflux disease without esophagitis; Z87.891 Personal history of nicotine dependence; Z79.82 Long term (current) use of aspirin; Z79.891 Long term (current) use of opiate analgesic; Z79.899 Other long term (current) drug therapy
CPT/HCPCS: 88305; 43239; J2001; J2704

== ENCOUNTER 2019-02-25 22:06 | Observation (INO) | payer MEDICARE ==
[2019-02-25] MEDS ORDERED: MORPHINE SULFATE 4 MG/ML SYRINGE IVP STA (22:50)
[2019-02-25] MEDS ORDERED: ASPIRIN 325 MG TAB PO STA (22:50)
[2019-02-25 23:08] LABS: Basophils # (A) 0.1 k/uL (0-0.2); Basophils % (A) 1 %; Eosinophils # (A) 0.3 k/uL (0-0.7); Eosinophils % (A) 4 %; HCT 39.3 % (39.0-53.0); HGB 13.1 gm/dL (13.0-17.5); Lymphocytes # (A) 2.3 k/uL (1.0-4.8); Lymphocytes % (A) 31 %; MCH 30.9 pg (25.0-35.0); MCHC 33.3 g/dL (31.0-37.0); MCV 92.6 fL (80.0-100.0); Mean Platelet Volume 8.8; Monocytes # (A) 0.4 k/uL (0-1.0); Monocytes % (A) 5 %; Neutrophils # (A) 4.2 k/uL (1.3-7.7); Neutrophils % (A) 58 %; Platelet Count 261 k/uL (150-450); RBC 4.24 m/uL (4.30-5.90); RDW 13.9 % (11.5-15.5); WBC 7.4 k/uL (3.8-10.6)
[2019-02-25 23:15] LABS: Calcium 9.5 mg/dL (8.4-10.2); Potassium 4.2 mmol/L (3.5-5.1)
--- NOTE | 2019-02-26 00:10 | XR ---
EXAM: XR Chest, 2 Views CLINICAL HISTORY: ITS.REASON XR Reason: Pain TECHNIQUE: Frontal and lateral views of the chest. COMPARISON: No relevant prior studies available. FINDINGS: Lungs: Unremarkable. No consolidation. Pleural space: Unremarkable. No pneumothorax. Heart: No suspicious enlargement. Mediastinum: Unremarkable. Bones/joints: No acute fracture. IMPRESSION: No acute findings.
[2019-02-26] MEDS ORDERED: HYDROcodone/APAP 5-325MG 1 EACH TAB PO STA (00:18)
[2019-02-26] MEDS ORDERED: HEPARIN SODIUM,PORCINE 5,000 UNIT/ML 1 ML VIAL IV PRN (00:19)
[2019-02-26] MEDS ORDERED: HEPARIN SODIUM,PORCINE 10,000 UNIT/ML 1 ML VIAL IV ONE (00:19)
[2019-02-26] MEDS ORDERED: NALOXONE 0.4 MG/ML 1 ML VIAL IV PRN (00:26)
[2019-02-26] MEDS ORDERED: ONDANSETRON 4 MG/2 ML VIAL IVP PRN (00:26)
[2019-02-26] MEDS ORDERED: MORPHINE SULFATE 4 MG/ML SYRINGE IV PRN (00:26)
[2019-02-26] MEDS ORDERED: HEPARIN SOD,PORK IN 0.45% NACL 25,000 UNIT in 0.45% NACL 1 250ML.BAG IV SCH (00:30)
--- NOTE | 2019-02-26 00:41 | ED ---
Chest Pain HPI - General Chief Complaint: Chest Pain Stated Complaint: Chest Pain Time Seen by Provider: 02/25/19 22:32 Source: patient Limitations: no limitations - History of Present Illness Initial Comments: 73-year-old male presenting with substernal chest pain radiating to the right arm accompanied by diaphoresis that began 3 hours prior to arrival while he was moving furniture. Patient states he stopped, rested, took 2 nitro without relief. Denies any history of previous OH or stent placement, however the patient has a cardiac cath one year prior which she states that showed blockage, but they did not stent it. He denies any N/V/D. Denies any other associated symptoms. Denies history of aortic pathology. - Related Data Home Medications Medication Instructions Recorded Confirmed Losartan Potassium [Cozaar] 100 mg PO DAILY 08/04/15 02/25/19 Tamsulosin [Flomax] 0.4 mg PO DAILY 06/27/16 02/25/19 Isosorbide Mononitrate ER [Imdur] 30 mg PO DAILY 05/22/18 02/25/19 Aspirin [Adult Low Dose Aspirin EC] 81 mg PO DAILY 10/24/18 02/25/19 Baclofen 10 mg PO HS 10/24/18 02/25/19 Ergocalciferol (Vitamin D2) 50,000 unit PO Q7D 10/24/18 02/25/19 [Vitamin D2] HYDROcodone/APAP 7.5-325MG [[place] 1 tab PO Q8HR PRN 10/24/18 02/25/19 7.5-325] Hyoscyamine Sulfate [Levsin-Sl] 0.125 mg SL TID PRN 02/25/19 02/25/19 Pantoprazole [Protonix] 40 mg PO DAILY 02/25/19 02/25/19 Previous Rx's Medication Instructions Recorded Fenofibrate Nanocrystallized 145 mg PO DAILY #30 tablet 08/05/15 [Tricor] Allergies Allergy/AdvReac Type Severity Reaction Status Date / Time yeast, dried [yeast] Allergy "PER Verified 10/28/18 11:28 ALLERGY TEST" Review of Systems ROS Statement: Those systems with pertinent positive or pertinent negative responses have been documented in the HPI. Review of Systems Constitutional: Denies fever, chills Eyes: Denies change in vision, Denies pain Ears, nose, mouth, throat: Denies headaches, Denies sore throat Cardiovascular:Positive chest pain. Denies palpitations Respiratory: Denies shortness of breath, Denies cough Gastrointestinal: Denies abdominal pain. Denies nausea, vomiting, diarrhea. Genitourinary: Denies hematuria, Denies infections Musculoskeletal: Denies pain, Denies swelling Integumentary: Denies rash Neurological: Denies headache, focal weakness, focal numbness Psychiatric: Denies anxiety, Denies depression Hematologic/Lymphatic: Denies easy bleeding or bruising ROS Other: All systems not noted in ROS Statement are negative. EKG Findings - EKG Comments: EKG Findings:: EKG shows sinus rhythm with PACs at a rate of [address] segment elevation, depression. No prolonged QT/QTc or MT interval. No dysrythmia noted. Past Medical History Past Medical History: Chest Pain / Angina, GERD/Reflux, Hyperlipidemia, Hypertension Additional Past Medical History / Comment(s): asthmatic bronchitis, occasional chest pain-following with Dr. Kauffman., Back Pain., SOB. History of Any Multi-Drug Resistant Organisms: None Reported Past Surgical History: Cholecystectomy, Heart Catheterization Additional Past Surgical History / Comment(s): thyroid biopsy x2, heart cath x3 in past no stents - per pt. Past Anesthesia/Blood Transfusion Reactions: No Reported Reaction Past Psychological History: No Psychological Hx Reported Smoking Status: Former smoker Past Alcohol Use History: Daily Past Drug Use History: None Reported - Past Family History Father Family Medical History: No Reported History Mother Family Medical History: No Reported History General Exam - General Exam Comments Initial Comments: General: Awake, alert, No acute Distress HENT: Normocephalic. Atraumatic Eyes: PERRL. EOMI. No scleral icterus. No injected conjunctiva Neck: Full ROM Chest/Lungs: Clear to auscultation bilaterally. No wheezing, rhonchi, or rales Cardiac: Regular rate, rhythm. No murmurs or rubs. 2+ radial pulses bilaterally Abdomen/GI: Soft, nontender, nondistended. No rebound, guarding, or rigidity. Musculoskeletal: Full ROM Skin: Warm, dry, intact Neurologic: A/Ox3, no weakness, no sensory deficit, no abnormal gait, no coordination deficit Limitations: no limitations Course Vital Signs 02/25/19 22:20 Temperature 98.1 F Pulse Rate 72 Respiratory 20 Rate Blood Pressure 132/71 O2 Sat by Pulse 98 Oximetry Chest Pain MDM - MDM [id number] male presenting with chest pain. Initial exam the patient is awake, alert, no acute distress. VSS. Patient has no shortness breath or symptoms to suggest any cause of his pain is related to PE. Patient has a history of aortic pathology, is normotensive, with good pulses. Patient's laboratory workup was negative for acute process. EKG did not show any evidence of STEMI. Patient continued to have chest pain while in the department. Due to the patient's history of angina and cardiac cath that showed blockage one year prior, elected to start him on heparin for unstable angina. Spoke with Dr. Brown, who is agreeable to admission. Patient is currently stable for transfer to floor. Disposition Clinical Impression: Unstable angina Disposition: ADMITTED IP TO THIS HOSP Is patient prescribed a controlled substance at d/c from ED?: No Referrals: Andres Brown MD [Primary Care Provider] - 1-2 days Decision to Admit Reason: Admit from EC Decision Date: 02/26/19 Decision Time: 00:31
[2019-02-26 01:00] LABS: Basophils # (A) 0.1 k/uL (0-0.2); Basophils % (A) 1 %; Eosinophils # (A) 0.3 k/uL (0-0.7); Eosinophils % (A) 4 %; HCT 39.8 % (39.0-53.0); HGB 12.8 gm/dL (13.0-17.5); Lymphocytes # (A) 2.5 k/uL (1.0-4.8); Lymphocytes % (A) 35 %; MCH 30.5 pg (25.0-35.0); MCHC 32.2 g/dL (31.0-37.0); MCV 94.6 fL (80.0-100.0); Mean Platelet Volume 9.2; Monocytes # (A) 0.5 k/uL (0-1.0); Monocytes % (A) 7 %; Neutrophils # (A) 3.6 k/uL (1.3-7.7); Neutrophils % (A) 52 %; Platelet Count 235 k/uL (150-450); WBC 7.1 k/uL (3.8-10.6)
[2019-02-26 01:14] LABS: Partial Thromboplastin Time 23.9 sec (22.0-30.0); Prothrombin Time 10.3 sec (9.0-12.0)
[2019-02-26] MEDS ORDERED: AMINOPHYLLINE 500 MG/20 ML VIAL IV PRN (08:43)
[2019-02-26] MEDS ORDERED: CAFFEINE CITRATE 60 MG/3 ML VIAL IV PRN (08:43)
[2019-02-26] MEDS ORDERED: DIPYRIDAMOLE 62 MG in SODIUM CHLORIDE 0.9% 37.6 ML IV ONE (08:43)
[2019-02-26 08:49] LABS: Albumin 4.1 g/dL (3.5-5.0); Calcium 9.1 mg/dL (8.4-10.2); Potassium 4.2 mmol/L (3.5-5.1); Total Bilirubin 0.7 mg/dL (0.2-1.3); Total Protein 7.1 g/dL (6.3-8.2)
[2019-02-26 08:58] LABS: Basophils # (A) 0.1 k/uL (0-0.2); Basophils % (A) 1 %; Eosinophils # (A) 0.3 k/uL (0-0.7); Eosinophils % (A) 4 %; HCT 39.9 % (39.0-53.0); HGB 13.1 gm/dL (13.0-17.5); Lymphocytes # (A) 3.3 k/uL (1.0-4.8); Lymphocytes % (A) 45 %; MCH 31.4 pg (25.0-35.0); MCHC 32.8 g/dL (31.0-37.0); MCV 95.8 fL (80.0-100.0); Mean Platelet Volume 8.8; Monocytes # (A) 0.3 k/uL (0-1.0); Monocytes % (A) 5 %; Neutrophils # (A) 3.1 k/uL (1.3-7.7); Neutrophils % (A) 43 %; Platelet Count 254 k/uL (150-450); RBC 4.16 m/uL (4.30-5.90); WBC 7.2 k/uL (3.8-10.6)
[2019-02-26] MEDS ORDERED: LOSARTAN 50 MG TAB PO SCH (09:00)
--- NOTE | 2019-02-26 09:45 | P.HPIM ---
History of Present Illness H&P Date: 02/26/19 Chief Complaint: Chest pain This is a 73-year-old male patient who presented with complaints of chest pain. Patient states that he was moving furniture with a friend when he began to experience chest pain. Patient reports that he took 2 nitro without any relief. Patient denies any associated shortness of breath or nausea vomiting. Patient has past medical history of angina, GERD, hyperlipidemia, hypertension, asthmatic bronchitis, back pain and former smoker. Patient also had cardiac cath completed in June 2016 which at that time showed minimal intimal disease involving the proximal and mid LAD. Normal left ventricular size and systolic function. Chest x-ray completed showing no acute findings. EKG completed showing sinus rhythm with premature atrial complexes. Nonspecific ST abnormality. Troponins negative. Patient started on heparin drip. Cardiology services have been consulted. Stress test has been ordered. Patient still complaining of chest pain. Patient denies shortness breath. Patient denies nausea vomiting or diarrhea. Patient denies any urinary burning or frequency. Review of Systems Please refer to HPI otherwise unremarkable Past Medical History Past Medical History: Chest Pain / Angina, GERD/Reflux, Hyperlipidemia, Hypertension Additional Past Medical History / Comment(s): asthmatic bronchitis, occasional chest pain-following with Dr. Kauffman., Back Pain., SOB. History of Any Multi-Drug Resistant Organisms: None Reported Past Surgical History: Cholecystectomy, Heart Catheterization Additional Past Surgical History / Comment(s): thyroid biopsy x2, heart cath x3 in past no stents - per pt. Past Anesthesia/Blood Transfusion Reactions: No Reported Reaction Past Psychological History: No Psychological Hx Reported Smoking Status: Former smoker Past Alcohol Use History: Daily Additional Past Alcohol Use History / Comment(s): STARTED SMOKING AT AGE 14 QUIT 2006 SMOKED 1-1 1 /2 PPD. DRINKS 1-2 BEERS AND SNAPPS DAILY. Past Drug Use History: None Reported - Past Family History Father Family Medical History: No Reported History Mother Family Medical History: No Reported History Medications and Allergies Home Medications Medication Instructions Recorded Confirmed Type Losartan Potassium [Cozaar] 100 mg PO DAILY 08/04/15 02/25/19 History Fenofibrate Nanocrystallized 145 mg PO DAILY #30 tablet 08/05/15 02/25/19 Rx [Tricor] Tamsulosin [Flomax] 0.4 mg PO DAILY 06/27/16 02/25/19 History Isosorbide Mononitrate ER [Imdur] 30 mg PO DAILY 05/22/18 02/25/19 History Aspirin [Adult Low Dose Aspirin EC] 81 mg PO DAILY 10/24/18 02/25/19 History Baclofen 10 mg PO HS 10/24/18 02/25/19 History Ergocalciferol (Vitamin D2) 50,000 unit PO Q7D 10/24/18 02/25/19 History [Vitamin D2] HYDROcodone/APAP 7.5-325MG [[place] 1 tab PO Q8HR PRN 10/24/18 02/25/19 History 7.5-325] Hyoscyamine Sulfate [Levsin-Sl] 0.125 mg SL TID PRN 02/25/19 02/25/19 History Pantoprazole [Protonix] 40 mg PO DAILY 02/25/19 02/25/19 History Allergies Allergy/AdvReac Type Severity Reaction Status Date / Time yeast, dried [yeast] Allergy "PER Verified 10/28/18 11:28 ALLERGY TEST" Physical Exam Vitals: Vital Signs Temp Pulse Pulse Resp BP BP Pulse Ox 02/26/19 08:00 97.6 F 50 L 16 96/54 96 02/26/19 03:20 97.6 F 55 L 18 123/74 98 02/26/19 01:22 57 L 18 116/63 95 02/26/19 00:22 56 L 18 107/58 96 02/25/19 22:20 98.1 F 72 20 132/71 98 Intake and Output 02/25/19 02/26/19 02/26/19 22:59 06:59 14:59 Intake Total 87.198 Balance 87.198 Intake: Intake, IV Titration 87.198 Amount Heparin Sod,Pork in 0.45% 87.198 NaCl 25,000 unit In 0.45 % NaCl 1 250ml.bag @ 18 UNITS/KG/HR 19.595 mls/hr IV .[id number] [facility] Rx#: [id number] Other: # Voids 1 Weight 108.862 kg Head normocephalic Neck supple Lungs clear to auscultation bilaterally no wheezing or crackles Heart regular rate and rhythm S1-S2, no rub or gallop Abdomen is soft nontender nondistended positive bowel sounds no hepatosplenomegaly Extremities no edema Neuro alert and orientated to 3 Results CBC & Chem 7: 02/26/19 05:51 02/26/19 05:51 Labs: Abnormal Lab Results - Last 24 Hours (Table) 02/25/19 02/25/19 02/26/19 Range/Units 22:42 22:42 00:51 RBC 4.24 L 4.20 L (4.30-5.90) m/uL Hgb 12.8 L (13.0-17.5) gm/dL APTT (22.0-30.0) sec Carbon Dioxide 21 L (22-30) mmol/L BUN 29 H (9-20) mg/dL Creatinine 1.30 H (0.66-1.25) mg/dL Glucose (74-99) mg/dL 02/26/19 02/26/19 02/26/19 Range/Units 05:51 05:51 05:51 RBC 4.16 L (4.30-5.90) m/uL Hgb (13.0-17.5) gm/dL APTT 178.5 H* (22.0-30.0) sec Carbon Dioxide (22-30) mmol/L BUN 26 H (9-20) mg/dL Creatinine 1.40 H (0.66-1.25) mg/dL Glucose 101 H (74-99) mg/dL Thrombosis Risk Factor Assmnt - Choose All That Apply Any of the Below Risk Factors Present?: Yes Each Factor Represents 1 point: Acute SC, Obesity (BMI >25) Other Risk Factors: Yes Each Risk Factor Represents 2 Points: Age 61-74 years Thrombosis Risk Factor Assessment Total Risk Factor Score: 4 Thrombosis Risk Factor Assessment Level: Moderate Risk Assessment and Plan Assessment: 1. Chest pain. Troponins negative 3. Chest x-ray showing no acute pulmonary process. Cardiology services have been consulted plans for stress test today. Patient started on heparin drip 2. Acute kidney injury. Creatinine 1.40 and bun 26. Losartan currently on hold. We'll continue to monitor 3. History of chest pain angina. Patient had previous cardiac catheterization June 2016. No PCI intervention at that time 4. History of GERD 5. History of hyperlipidemia 6. History of essential hypertension 7. History of cholecystectomy 8. Ex-smoker Time with Patient: Greater than 30 (Greater than 60% of the total time spent in counseling and coordination of care. I performed an examination of the patient and discussed their management with the Nurse Practitioner. I have reviewed the Nurse Practitioner's notes and agree with the documented findings and plan of care)
--- NOTE | 2019-02-26 11:44 | NM ---
EXAMINATION TYPE: NM stress persantine cardiolit DATE OF EXAM: 02/26/2019 COMPARISON: 08/05/2015 HISTORY: Chest pain TECHNIQUE: After the intravenous administration of 10.5 mCi Tc 99m Sestamibi - Cardiolite resting SP ECT images acquired 45 minutes post injection. The patient received 62 mg Persantine, 25.6 mCi Tc 99m Sestamibi - Stress images obtained 30 minutes post injection FINDINGS: Review of stress and rest SPECT images demonstrates fixed defect involving the inferior wall the myoc ardium.. Gated analysis shows normal wall motion with an estimated left ventricular ejection fractio n of 59 %. IMPRESSION: 1. No scintigraphic evidence for reversible ischemia. There is a fixed defect involving the inferior wall of the myocardium correlate for previous ischemia.
[2019-02-26] MEDS: ASPIRIN 81 MG PO SCH (11:47)
[2019-02-26] MEDS: TAMSULOSIN 0.4 MG CAP.ER.24H PO SCH (11:47)
[2019-02-26] MEDS: FENOFIBRATE 160 MG TAB PO SCH (11:47)
[2019-02-26] MEDS: PANTOPRAZOLE 40 MG TABLET PO SCH (11:47)
[2019-02-26] MEDS: HYDROcodone/APAP 7.5-325MG 1 EACH TAB PO PRN ×2 (13:41→21:57)
--- NOTE | 2019-02-26 14:25 | P.CRDCN ---
History of Present Illness History of present illness: This is a pleasant 73-year-old male past medical history significant for hypertension, dyslipidemia, gastroesophageal reflux disease and daily alcohol intake. He follows in the office with Dr. Kauffman. We have been asked to see him in consultation for chest pain. He states yesterday after moving some appliances at home he started feeling a heavy sensation in the chest in the mid- sternal region. The pain has been persistent since it started with no alleviating factors. There is no radiation to the arm, back, neck or jaw. There is no associated shortness of breath, dizziness, nausea, vomiting or palpitations. He is seen and examined up walking around the room. He continues to have pain in the chest that is constant without improvement or worsening for that matter. Remains consistently uncomfortable. EKG reveals sinus mechanism with mild nonspecific upsloping ST changes in the lateral lead. Chest x-ray negative for acute cardiopulmonary process. Laboratory data reviewed, WBC 7.2, hemoglobin 13.1, platelets 254, sodium 141, potassium 4.2, creatinine 1.4 with a GFR of 50, cardiac enzymes negative 3, proBNP 268. Current cardiac medications include aspirin 81 mg daily, Imdur 30 mg daily, fenofibrate 145 mg daily and losartan 100 mg daily. Most recent cardiac catheterization performed in 2015 revealed normal coronary arteries. Most recent echocardiogram obtained October 2018 revealed preserved LV systolic function. At the time of my exam: CONSTITUTIONAL: Denies fever. Denies chills. EYES: Denies blurred vision. Denies vision changes. Denies eye pain. EARS, NOSE, MOUTH & THROAT: Denies headache. Denies sore throat. Denies ear pain. CARDIOVASCULAR: Complains of chest pain. Denies shortness of breath. Denies orthopnea. Denies PND. Denies palpitations. RESPIRATORY: Denies cough. GASTROINTESTINAL: Denies abdominal pain. Denies diarrhea. Denies constipation. D enies nausea. Denies vomiting. MUSCULOSKELETAL: Denies myalgias. INTEGUMENTARY: Denies pruitis. Denies rash. NEUROLOGIC: Denies numbness. Denies tingling. Denies weakness. PSYCHIATRIC: Denies anxiety. Denies depression. ENDOCRINE: Denies fatigue. Denies weight change. Denies polydipsia. Denies polyu heather. GENITOURINARY: Denies burning, hematuria or urgency with micturation. HEMATOLOGIC: Denies history of anemia. Denies bleeding. Blood pressure 122/68 heart rate 65 afebrile maintaining oxygen saturation on room air GENERAL: This is a 73-year-old male in no apparent distress at the ti me of my examination. HEENT: Head is atraumatic, normocephalic. Pupils are equal, round. Sclerae ani cteric. Conjunctivae are clear. Mucous membranes of the mouth are moist. Neck is supple. There is no jugular venous distention. No carotid bruit is heard. LUNGS: Clear to auscultation no wheezes, rales or rhonchi. No chest wall tenderness is noted on palpation or with deep breathing. HEART: Regular rate and rhythm without murmurs, rubs or gallops. S1 and S2 heard. ABDOMEN: Soft, nontender. Bowel sounds are heard. No organomegaly noted. EXTREMITIES: No evidence of peripheral edema and no calf tenderness noted. VASCULAR: Radial and dorsalis pedis pulses palpated, no evidence of clubbing. NEUROLOGIC: Patient is awake, alert and oriented x3. ASSESSMENT Chest pain, persistent. An acute event has been ruled out. Atypical for angina. Hypertension Dyslipidemia Gastroesophageal reflux disease Daily alcohol use PLAN Recent echocardiogram in the office was normal. Will not repeat on this admi ssion. Perform persantine stress test to assess for reversible cardiac ischemia. Symptoms are atypical for angina, possibly related underlying GI etiology. Alcohol cessation recommended. If stress test is normal he is stable from a cardiac perspective. Follow up with Dr. Kauffman in 2 weeks. Thank you kindly for this consultation. Nurse Practitioner note has been reviewed, I agree with a documented findings and plan of care. Patient was seen and examined. Past Medical History Past Medical History: Chest Pain / Angina, GERD/Reflux, Hyperlipidemia, Hypertension Additional Past Medical History / Comment(s): asthmatic bronchitis, occasional chest pain-following with Dr. Kauffman., Back Pain., SOB. History of Any Multi-Drug Resistant Organisms: None Reported Past Surgical History: Cholecystectomy, Heart Catheterization Additional Past Surgical History / Comment(s): thyroid biopsy x2, heart cath x3 in past no stents - per pt. Past Anesthesia/Blood Transfusion Reactions: No Reported Reaction Past Psychological History: No Psychological Hx Reported Smoking Status: Former smoker Past Alcohol Use History: Daily Additional Past Alcohol Use History / Comment(s): STARTED SMOKING AT AGE 14 QUIT 2006 SMOKED 1-1 1 /2 PPD. DRINKS 1-2 BEERS AND SNAPPS DAILY. Past Drug Use History: None Reported - Past Family History Father Family Medical History: No Reported History Mother Family Medical History: No Reported History Medications and Allergies Home Medications Medication Instructions Recorded Confirmed Type Losartan Potassium [Cozaar] 100 mg PO DAILY 08/04/15 02/25/19 History Fenofibrate Nanocrystallized 145 mg PO DAILY #30 tablet 08/05/15 02/25/19 Rx [Tricor] Tamsulosin [Flomax] 0.4 mg PO DAILY 06/27/16 02/25/19 History Isosorbide Mononitrate ER [Imdur] 30 mg PO DAILY 05/22/18 02/25/19 History Aspirin [Adult Low Dose Aspirin EC] 81 mg PO DAILY 10/24/18 02/25/19 History Baclofen 10 mg PO HS 10/24/18 02/25/19 History Ergocalciferol (Vitamin D2) 50,000 unit PO Q7D 10/24/18 02/25/19 History [Vitamin D2] HYDROcodone/APAP 7.5-325MG [[place] 1 tab PO Q8HR PRN 10/24/18 02/25/19 History 7.5-325] Hyoscyamine Sulfate [Levsin-Sl] 0.125 mg SL TID PRN 02/25/19 02/25/19 History Pantoprazole [Protonix] 40 mg PO DAILY 02/25/19 02/25/19 History Allergies Allergy/AdvReac Type Severity Reaction Status Date / Time yeast, dried [yeast] Allergy "PER Verified 10/28/18 11:28 ALLERGY TEST" Physical Exam Vitals: Vital Signs Temp Pulse Pulse Resp BP BP Pulse Ox 02/26/19 03:20 97.6 F 55 L 18 123/74 98 02/26/19 01:22 57 L 18 116/63 95 02/26/19 00:22 56 L 18 107/58 96 02/25/19 22:20 98.1 F 72 20 132/71 98 Intake and Output 02/25/19 02/26/19 02/26/19 22:59 06:59 14:59 Intake Total 87.198 Balance 87.198 Intake: Intake, IV Titration 87.198 Amount Heparin Sod,Pork in 0.45% 87.198 NaCl 25,000 unit In 0.45 % NaCl 1 250ml.bag @ 18 UNITS/KG/HR 19.595 mls/hr IV .[id number] [facility] Rx#: [id number] Other: # Voids 1 Weight 108.862 kg Results 02/26/19 05:51 02/26/19 05:51 Cardiac Enzymes 02/25/19 02/26/19 Range/Units 22:42 05:51 Troponin I <0.012 <0.012 (0.000-0.034) ng/mL Coagulation 02/26/19 02/26/19 Range/Units 00:51 05:51 PT 10.3 (9.0-12.0) sec APTT 23.9 178.5 H* (22.0-30.0) sec CBC 02/25/19 02/26/19 Range/Units 22:42 00:51 WBC 7.4 7.1 (3.8-10.6) k/uL RBC 4.24 L 4.20 L (4.30-5.90) m/uL Hgb 13.1 12.8 L (13.0-17.5) gm/dL Hct 39.3 39.8 (39.0-53.0) % Plt Count 261 235 (150-450) k/uL Comprehensive Metabolic Panel 02/25/19 Range/Units 22:42 Sodium 139 (137-145) mmol/L Potassium 4.2 (3.5-5.1) mmol/L Chloride 107 (98-107) mmol/L Carbon Dioxide 21 L (22-30) mmol/L BUN 29 H (9-20) mg/dL Creatinine 1.30 H (0.66-1.25) mg/dL Glucose 99 (74-99) mg/dL Calcium 9.5 (8.4-10.2) mg/dL Current Medications Generic Name Dose Route Start Last Admin Trade Name Freq PRN Reason Stop Dose Admin Hydrocodone Bitart/Acetaminophen 1 each 02/26/19 00:28 [place] 7.5-325 PO Q8HR PRN Pain Aspirin 81 mg 02/26/19 09:00 Aspirin PO DAILY [facility] Baclofen 10 mg 02/26/19 21:00 Lioresal PO HS [facility] Fenofibrate 160 mg 02/26/19 09:00 Lofibra PO DAILY [facility] Heparin Sodium (Porcine) 0 unit 02/26/19 00:19 Heparin IV PER PROTOCOL PRN Low PTT Protocol Heparin Sodium/Sodium Chloride 250 mls @ 19.595 mls/hr 02/26/19 00:30 02/26/19 06:40 25,000 unit/ Sodium Chloride IV 0 units/kg/hr .[id number] RENNY 0 mls/hr Titration Protocol 18 UNITS/KG/HR Losartan Potassium 100 mg 02/26/19 09:00 Cozaar PO DAILY [facility] Morphine Sulfate 4 mg 02/26/19 00:26 Morphine Sulfate (Inj) IV Q4HR PRN Severe Pain Naloxone HCl 0.2 mg 02/26/19 00:26 Narcan IV Q2M PRN Opioid Reversal Ondansetron HCl 4 mg 02/26/19 00:26 Zofran IVP Q8HR PRN Nausea And Vomiting Pantoprazole Sodium 40 mg 02/26/19 09:00 Protonix PO DAILY [facility] Tamsulosin HCl 0.4 mg 02/26/19 09:00 Flomax PO DAILY [facility] Intake and Output 02/25/19 02/26/19 02/26/19 22:59 06:59 14:59 Intake Total 87.198 Balance 87.198 Intake: Intake, IV Titration 87.198 Amount Heparin Sod,Pork in 0.45% 87.198 NaCl 25,000 unit In 0.45 % NaCl 1 250ml.bag @ 18 UNITS/KG/HR 19.595 mls/hr IV .[id number] [facility] Rx#: [id number] Other: # Voids 1 Weight 108.862 kg 02/26/19 00:51 02/25/19 22:42
[2019-02-26] MEDS: SODIUM CHLORIDE 0.9% 1,000 ML IV SCH (18:16)
--- NOTE | 2019-02-26 19:55 | EST ---
EXERCISE STRESS AGE: 73 SEX: Male HT: 5'10" WT: 240 PROTOCOL: Persantine Cardiolite STAGE: DURATION OF EXERCISE: HEART RATE REST: 71 BLOOD PRESSURE REST: 140/73 MAXIMUM HEART RATE ACHIEVED: 78 MAXIMUM BLOOD PRESSURE: 140/73 85% MPHR: 125 100% MPHR: 147 METS: INDICATIONS: Chest pain. CLINICAL INFORMATION: Baseline heart rate 71 beats per minute. Baseline blood pressure 140/73 mmHg. Baseline 12-lead ECG showed normal sinus rhythm with PACs and abnormal ST segments in the inferior leads and lateral precordial leads with a [address] depression, somewhat down-sloping. Patient received Persantine infusion per protocol. He complained of chest pain through the study. No significant change in heart rate or blood pressure. ECG abnormalities and ST depression became a little more prominent during Persantine infusion. Nuclear portion of the stress test will be reported separately. MMODL / IJN: [id number] /
[2019-02-26] MEDS ORDERED: BACLOFEN 10 MG TAB PO SCH (21:00)
[2019-02-27 07:57] LABS: Basophils % (A) 1 %; Eosinophils # (A) 0.3 k/uL (0-0.7); Eosinophils % (A) 4 %; HCT 41.2 % (39.0-53.0); HGB 13.6 gm/dL (13.0-17.5); Lymphocytes # (A) 1.8 k/uL (1.0-4.8); Lymphocytes % (A) 28 %; MCH 31.2 pg (25.0-35.0); MCHC 32.9 g/dL (31.0-37.0); MCV 94.8 fL (80.0-100.0); Monocytes # (A) 0.4 k/uL (0-1.0); Monocytes % (A) 6 %; Neutrophils # (A) 3.8 k/uL (1.3-7.7); Neutrophils % (A) 60 %; Platelet Count 281 k/uL (150-450); RBC 4.34 m/uL (4.30-5.90); RDW 12.2 % (11.5-15.5); WBC 6.4 k/uL (3.8-10.6)
[2019-02-27 08:10] LABS: Albumin 4.2 g/dL (3.5-5.0); Calcium 9.4 mg/dL (8.4-10.2); Potassium 4.5 mmol/L (3.5-5.1); Total Bilirubin 0.7 mg/dL (0.2-1.3); Total Protein 6.9 g/dL (6.3-8.2)
[2019-02-27] MEDS: PANTOPRAZOLE 40 MG TABLET PO SCH (09:01)
[2019-02-27] MEDS: FENOFIBRATE 160 MG TAB PO SCH (09:01)
[2019-02-27] MEDS: SODIUM CHLORIDE 0.9% 1,000 ML IV SCH (09:01)
[2019-02-27] MEDS: TAMSULOSIN 0.4 MG CAP.ER.24H PO SCH (09:01)
[2019-02-27] MEDS: ASPIRIN 81 MG PO SCH (09:01)
[2019-02-27 11:16] VITALS: BP 99/64; PULSE 71; RESP 16; TEMP 97.9
--- NOTE | 2019-02-27 12:41 | XR ---
Frontal and lateral spine HISTORY: Low back pain, back pain Frontal and lateral views of the spine submitted on a total of 9 images Correlation prior lumbar spine 06/17/2018 Cervical spine shows marked hypertrophic changes of the facets. Probable carotid artery calcification is present. Thoracic spine shows multilevel spondylosis as does the lumbar spine as on prior. Cervic al spine shows loss of normal lordosis. Minimal anterolisthesis grade 1 C4-5. C5-6 shows possible ank ylosis. There is loss of disc height C6-7, there is multilevel spondylosis. Hypertrophic change also present in the posterior elements of the lower lumbar spine. Loss of disc height at L4-5 and L5-S1, l lesvia extent L3-4, L2-3 as on prior. Vacuum phenomenon present L4-5 and L5-S1. Anterolisthesis grade 1 L5-S1 is stable. IMPRESSION: Degenerative disc disease, facet arthropathy.
--- NOTE | 2019-02-27 12:57 | P.DS ---
Providers Date of admission: 02/26/19 00:28 Expected date of discharge: 02/27/19 Attending physician: Andres Brown Consults: 02/26/19 00:29 Consult Physician Routine Consulting Provider: Prasanth Call Consult Reason/Comments: Chest pain Do you want consulting provider notified?: Yes, Notify in am Primary care physician: Andres Brown [facility] Course: Discharge diagnosis 1. Chest pain. Troponins negative 3. Chest x-ray showing no acute pulmonary process. Cardiology services have been consulted plans for stress test today. Patient started on heparin drip. Chemical stress test completed showing no evidence for reversible ischemia there is a fixed defect involving the. Wall of the myocardium correlate for previous ischemia. Patient has been cleared for discharge from cardiology standpoint chest pain has resolved 2. Acute kidney injury. Creatinine 1.40 and bun 26. Losartan currently on hold. We'll continue to monitor. Creatinine 1.49. Discussed with PCP patient to follow-up in PCP office. Losartan will be held on discharge. Patient advised to avoid NSAIDs 3. History of chest pain angina. Patient had previous cardiac catheterization June 2016. No PCI intervention at that time 4. History of GERD 5. History of hyperlipidemia 6. History of essential hypertension 7. History of cholecystectomy 8. Ex-smoker 9. Back pain. Spinal x-ray completed results pending patient to follow-up with PCP to review results Hospital course This is a 73-year-old male patient who presented with complaints of chest pain. Patient states that he was moving furniture with a friend when he began to experience chest pain. Patient reports that he took 2 nitro without any relief. Patient denies any associated shortness of breath or nausea vomiting. Patient has past medical history of angina, GERD, hyperlipidemia, hypertension, asthmatic bronchitis, back pain and former smoker. Patient also had cardiac cath completed in June 2016 which at that time showed minimal intimal disease involving the proximal and mid LAD. Normal left ventricular size and systolic function. Chest x-ray completed showing no acute findings. EKG completed showing sinus rhythm with premature atrial complexes. Nonspecific ST abnormality. Troponins negative. Patient started on heparin drip. Cardiology services have been consulted. Stress test has been ordered. Patient still complaining of chest pain. Patient denies shortness breath. Patient denies nausea vomiting or diarrhea. Patient denies any urinary burning or frequency. On 02/27/2019 patient is alert and oriented 3. Patient reports that chest pain has resolved. Complaining of back pain since lifting heavy furniture to spinal x-ray has been completed results pending. Patient has been cleared for discharge from cardiology standpoint. Patient reports he feels ready to go home. Creatinine elevated at 1.49. Losartan currently on hold we'll hold on discharge patient to follow-up with PCP for further management. At this time patient denies chest pain or shortness of breath. Patient denies nausea vomiting or diarrhea. Patient denies any urinary burning or frequency I performed an examination of the patient and discussed their management with the Nurse Practitioner. I have reviewed the Nurse Practitioner's notes and agree with the documented findings and plan of care Patient Condition at Discharge: Stable Plan - Discharge Summary Discharge Rx Participant: No New Discharge Prescriptions: No Action Losartan Potassium [Cozaar] 100 mg PO DAILY Fenofibrate Nanocrystallized [Tricor] 145 mg PO DAILY #30 tablet Tamsulosin [Flomax] 0.4 mg PO DAILY Isosorbide Mononitrate ER [Imdur] 30 mg PO DAILY HYDROcodone/APAP 7.5-325MG [[place] 7.5-325] 1 tab PO Q8HR PRN PRN Reason: Pain Baclofen 10 mg PO HS Aspirin [Adult Low Dose Aspirin EC] 81 mg PO DAILY Ergocalciferol (Vitamin D2) [Vitamin D2] 50,000 unit PO Q7D Hyoscyamine Sulfate [Levsin-Sl] 0.125 mg SL TID PRN PRN Reason: Gi Upset Pantoprazole [Protonix] 40 mg PO DAILY Discharge Medication List Losartan Potassium [Cozaar] 100 mg PO DAILY 08/04/15 [History] Fenofibrate Nanocrystallized [Tricor] 145 mg PO DAILY #30 tablet 08/05/15 [Rx] Tamsulosin [Flomax] 0.4 mg PO DAILY 06/27/16 [History] Isosorbide Mononitrate ER [Imdur] 30 mg PO DAILY 05/22/18 [History] Aspirin [Adult Low Dose Aspirin EC] 81 mg PO DAILY 10/24/18 [History] Baclofen 10 mg PO HS 10/24/18 [History] Ergocalciferol (Vitamin D2) [Vitamin D2] 50,000 unit PO Q7D 10/24/18 [History] HYDROcodone/APAP 7.5-325MG [[place] 7.5-325] 1 tab PO Q8HR PRN 10/24/18 [History] Hyoscyamine Sulfate [Levsin-Sl] 0.125 mg SL TID PRN 02/25/19 [History] Pantoprazole [Protonix] 40 mg PO DAILY 02/25/19 [History] Follow up Appointment(s)/Referral(s): Andres Brown MD [Primary Care Provider] - 1-2 days
== END 2019-02-27 13:32 | disposition home or self-care (01) ==
LOC: EC 22:06 → 1SOBS 02-26 00:28
PROVIDERS: ADMIT Internal Medicine; ATTEND Internal Medicine
DX: R07.89 Other chest pain (principal); N17.9 Acute kidney failure, unspecified; I25.10 Atherosclerotic heart disease of native coronary artery without angina pectoris; I49.1 Atrial premature depolarization; K21.9 Gastro-esophageal reflux disease without esophagitis; I10 Essential (primary) hypertension; E78.5 Hyperlipidemia, unspecified; J45.909 Unspecified asthma, uncomplicated; R61 Generalized hyperhidrosis; M54.9 Dorsalgia, unspecified; E66.9 Obesity, unspecified; Z68.34 Body mass index [BMI] 34.0-34.9, adult; M47.812 Spondylosis without myelopathy or radiculopathy, cervical region; M47.816 Spondylosis without myelopathy or radiculopathy, lumbar region; M47.814 Spondylosis without myelopathy or radiculopathy, thoracic region; M51.36 Other intervertebral disc degeneration, lumbar region; M50.323 Other cervical disc degeneration at C6-C7 level; M43.17 Spondylolisthesis, lumbosacral region; Z72.89 Other problems related to lifestyle; Z79.82 Long term (current) use of aspirin; Z79.891 Long term (current) use of opiate analgesic; Z79.899 Other long term (current) drug therapy; Z91.018 Allergy to other foods; Z90.49 Acquired absence of other specified parts of digestive tract; Z87.891 Personal history of nicotine dependence
CPT/HCPCS: 96366 ×3; 96376 ×2; 96365; 96375; 99285; 36415 ×2; 93005; 93017; 83880; 80053 ×2; 80048; 84484 ×2; 85025 ×3; 85610; 85730; 72082; 71046; 78452; G0378 ×2; A9500; J2270 ×2; J1644 ×2; J1245

== ENCOUNTER → 2019-09-02 | Outpatient (CLI) | payer MEDICARE ==
--- NOTE | 2019-09-02 13:37 | MR ---
EXAMINATION TYPE: MR cervical spine wo con DATE OF EXAM: 09/02/2019 COMPARISON: Plain film 02/27/2019 HISTORY: Neck pain TECHNIQUE: Multiplanar, multisequence images of the cervical spine were acquired. C2-C3: No evidence for degenerative disc disease. No disc bulge/herniation or protrusion. No Canal stenosis. Foramina are patent bilaterally. C3-C4: Facet arthropathy and uncovertebral joint hypertrophy results in some right-sided foraminal en croachment. No evident disc herniation. No significant spinal stenosis. C4-C5: There is bilateral foraminal encroachment due to uncovertebral joint hypertrophy and facet art hropathy. Minimal posterior extension endplate disc complex causes slight anterior mass effect on the thecal sac. C5-C6: Posterior extension endplate disc complex results in anterior mass effect on the thecal sac, n o significant spinal stenosis. Some minimal right-sided foraminal encroachment present. C6-C7: Posterior extension of endplate disc complex results in moderate central stenosis. There is so me left-sided foraminal encroachment. C7-T1: No evidence for degenerative disc disease. No disc bulge/herniation or protrusion. No Canal stenosis. Foramina are patent bilaterally. Cervical segments are intact. There is normal alignment. Cervical spinal cord is of normal signal. Craniovertebral junction relationships are within normal limits. There is extensive multilevel face t arthropathy. There is multilevel spondylosis with associated loss of disc height and signal especia lly at C5-6 and C6-7 with associated endplate discogenic marrow signal change. Loss of disc height si gnal is also present, some increased signal at C5-6 disc space may be due to some calcification. IMPRESSION: Degenerative disc disease, facet arthropathy, spinal stenosis and multilevel foraminal encroachment.
== END | disposition home or self-care (01) ==
LOC: RADMRIMAIN 09:32
PROVIDERS: ATTEND Internal Medicine
DX: M48.02 Spinal stenosis, cervical region (principal); M50.30 Other cervical disc degeneration, unspecified cervical region; M46.92 Unspecified inflammatory spondylopathy, cervical region
CPT/HCPCS: 72141

== ENCOUNTER 2020-03-24 14:17 | Observation (INO) | payer MEDICARE ==
--- NOTE | 2020-03-24 14:58 | ED ---
Chest Pain HPI - General Chief Complaint: Chest Pain Stated Complaint: Chest Pain Time Seen by Provider: 03/24/20 14:24 Source: patient, RN notes reviewed Mode of arrival: wheelchair Limitations: no limitations - History of Present Illness Initial Comments: Is a 74-year-old male presents with complaints of chest pain is started earlier today. Is some dizziness and states it was passed out because of it. He states the pain was retrosternal dull 67/10 severity currently is about /10 he was seen in his doctor's office and sent here for further evaluation. Patient also states she's been having indigestion-like discomfort to his epigastric region. He has had endoscopy in the past with no findings of ulceration he was on Prilosec which should help. He has no other complaints or modifying factors at this time. He has of a history of heart disease and reflux. He only takes aspirin for this. MD Complaint: chest pain - Related Data Home Medications Medication Instructions Recorded Confirmed Tamsulosin [Flomax] 0.4 mg PO DAILY 06/27/16 03/24/20 Aspirin [Adult Low Dose Aspirin EC] 81 mg PO DAILY 10/24/18 03/24/20 Baclofen 10 mg PO HS 10/24/18 03/24/20 Ergocalciferol (Vitamin D2) 50,000 unit PO TU 10/24/18 03/24/20 [Vitamin D2] Pantoprazole [Protonix] 40 mg PO DAILY 02/25/19 03/24/20 HYDROcodone/APAP 10-325MG [[place] 2 tab PO HS 03/24/20 03/24/20 10-325] Isosorbide Mononitrate ER [Imdur] 30 mg PO DAILY 03/24/20 03/24/20 Previous Rx's Medication Instructions Recorded Fenofibrate Nanocrystallized 145 mg PO DAILY #30 tablet 08/05/15 [Tricor] Allergies Allergy/AdvReac Type Severity Reaction Status Date / Time yeast, dried [yeast] Allergy "PER Verified 03/24/20 16:17 ALLERGY TEST" Review of Systems ROS Statement: Those systems with pertinent positive or pertinent negative responses have been documented in the HPI. ROS Other: All systems not noted in ROS Statement are negative. Past Medical History Past Medical History: Chest Pain / Angina, GERD/Reflux, Hyperlipidemia, Hypertension Additional Past Medical History / Comment(s): asthmatic bronchitis, occasional chest pain-following with Dr. Kauffman., Back Pain., SOB. History of Any Multi-Drug Resistant Organisms: None Reported Past Surgical History: Cholecystectomy, Heart Catheterization Additional Past Surgical History / Comment(s): thyroid biopsy x2, heart cath x3 in past no stents - per pt. Past Anesthesia/Blood Transfusion Reactions: No Reported Reaction Past Psychological History: No Psychological Hx Reported Smoking Status: Former smoker Past Alcohol Use History: Daily Past Drug Use History: None Reported - Past Family History Father Family Medical History: No Reported History Mother Family Medical History: No Reported History General Exam - General Exam Comments Initial Comments: This is a well-developed well-nourished awake alert oriented times 3 male Limitations: no limitations General appearance: alert, in no apparent distress Head exam: Present: atraumatic, normocephalic, normal inspection Eye exam: Present: normal appearance, PERRL, EOMI. Absent: scleral icterus, conjunctival injection, periorbital swelling ENT exam: Present: normal exam, mucous membranes moist Neck exam: Present: normal inspection, full ROM, other (No stridor daily or bruits). Absent: tenderness, meningismus, lymphadenopathy Respiratory exam: Present: normal lung sounds bilaterally. Absent: respiratory distress, wheezes, rales, rhonchi, stridor Cardiovascular Exam: Present: regular rate, normal rhythm, normal heart sounds. Absent: systolic murmur, diastolic murmur, rubs, gallop, clicks GI/Abdominal exam: Present: soft, normal bowel sounds. Absent: distended, tenderness, guarding, rebound, rigid Extremities exam: Present: normal inspection, full ROM, normal capillary refill. Absent: tenderness, pedal edema, joint swelling, calf tenderness Back exam: Present: normal inspection Neurological exam: Present: alert, oriented X3, CN II-XII intact Psychiatric exam: Present: normal affect, normal mood Skin exam: Present: warm, dry, intact, normal color. Absent: rash Course Vital Signs 03/24/20 14:18 Temperature 97.7 F Pulse Rate 83 Respiratory 18 Rate Blood Pressure 175/85 O2 Sat by Pulse 98 Oximetry - Reevaluation(s) Reevaluation #1: 03/24/20 16:46 Reevaluation patient reveals no change in his status. Chest Pain MDM - MDM I did review the imaging and report no acute findings. I did discuss the findings with the patient and family member was present as well as with Dr. Bronw. The patient will be admitted for inpatient evaluation and treatment. Blood pressure medication will be ordered. Cardiology will be consulted. Disposition Clinical Impression: Unstable angina, Chest pain, Hypertension Disposition: ADMITTED IP TO THIS HOSP Condition: Fair Referrals: Andres Brown MD [Primary Care Provider] - 1-2 days
--- NOTE | 2020-03-24 15:09 | XR ---
EXAMINATION TYPE: XR chest 2V DATE OF EXAM: 03/24/2020 COMPARISON: Chest x-ray February 25, 2019. HISTORY: Chest pain and syncope. TECHNIQUE: Frontal and lateral views of the chest are obtained. FINDINGS: There is some chronic parenchymal changes bilaterally without suspicious new focal air spa ce opacity, pleural effusion, or pneumothorax seen. The cardiac silhouette size remains within tiffanie l limits. Multilevel spurring in thoracic spine. Overlying EKG leads are redemonstrated. IMPRESSION: No acute cardiopulmonary process. No significant change from prior.
[2020-03-24 15:12] LABS: Albumin 4.3 g/dL (3.5-5.0); Calcium 9.6 mg/dL (8.4-10.2); Magnesium 1.7 mg/dL (1.6-2.3); Potassium 4.3 mmol/L (3.5-5.1); Total Bilirubin 0.5 mg/dL (0.2-1.3); Total Protein 6.9 g/dL (6.3-8.2)
[2020-03-24 15:15] LABS: Basophils % (A) 1 %; Eosinophils # (A) 0.2 k/uL (0-0.7); Eosinophils % (A) 2 %; HCT 43.1 % (39.0-53.0); HGB 13.9 gm/dL (13.0-17.5); Lymphocytes # (A) 1.2 k/uL (1.0-4.8); Lymphocytes % (A) 16 %; MCH 30.3 pg (25.0-35.0); MCHC 32.2 g/dL (31.0-37.0); Mean Platelet Volume 8.9; Monocytes # (A) 0.4 k/uL (0-1.0); Monocytes % (A) 5 %; Neutrophils # (A) 5.7 k/uL (1.3-7.7); Neutrophils % (A) 75 %; Platelet Count 242 k/uL (150-450); RBC 4.58 m/uL (4.30-5.90); RDW 12.5 % (11.5-15.5); WBC 7.6 k/uL (3.8-10.6)
[2020-03-24 15:21] LABS: INR 0.9 (<1.2); Partial Thromboplastin Time 24.6 sec (22.0-30.0); Prothrombin Time 9.8 sec (9.0-12.0)
[2020-03-24 15:24] LABS: MCV 94.1 fL (80.0-100.0)
[2020-03-24] MEDS ORDERED: NITROGLYCERIN SL TABS 0.4 MG TAB SUBLINGUAL PRN (16:48)
[2020-03-24] MEDS ORDERED: HEPARIN SODIUM,PORCINE 5,000 UNIT/ML 1 ML VIAL IV ONE (16:48)
[2020-03-24] MEDS ORDERED: SODIUM CHLORIDE 0.9% 1,000 ML IV SCH (17:00)
[2020-03-24] MEDS ORDERED: HEPARIN SOD,PORK IN 0.45% NACL 25,000 UNIT in 0.45% NACL 1 250ML.BAG IV SCH (17:00)
--- NOTE | 2020-03-24 17:26 | P.HPIM ---
History of Present Illness H&P Date: 03/24/20 Trevon Rocha is a 74-year-old male who presented to the office with a chief complaint of episode of chest pain, his blood pressure was elevated at 170/90, patient was sent to [facility] emergency room, he was evaluated by Dr. Roberts, first EKG and first set of cardiac enzymes were negative, patient was admitted to observation unit for further evaluation and cardiology consultation was requested. 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 Patient describes a pressure sensation in the middle of his chest radiating to the back, patient also stated that he had some dizziness, he stated that he passed out earlier in the day he is unable to give much details about that incident, patient also is having some shortness of breath, he was evaluated in the emergency room and was admitted to 24-hour observation cardiology consultation was requested. Past Medical History Past Medical History: Chest Pain / Angina, GERD/Reflux, Hyperlipidemia, Hypertension Additional Past Medical History / Comment(s): asthmatic bronchitis, occasional chest pain-following with Dr. Kauffman., Back Pain., SOB. History of Any Multi-Drug Resistant Organisms: None Reported Past Surgical History: Cholecystectomy, Heart Catheterization Additional Past Surgical History / Comment(s): thyroid biopsy x2, heart cath x3 in past no stents - per pt. Past Anesthesia/Blood Transfusion Reactions: No Reported Reaction Past Psychological History: No Psychological Hx Reported Smoking Status: Former smoker Past Alcohol Use History: Daily Past Drug Use History: None Reported - Past Family History Father Family Medical History: No Reported History Mother Family Medical History: No Reported History Medications and Allergies Home Medications Medication Instructions Recorded Confirmed Type Fenofibrate Nanocrystallized 145 mg PO DAILY #30 tablet 08/05/15 03/24/20 Rx [Tricor] Tamsulosin [Flomax] 0.4 mg PO DAILY 06/27/16 03/24/20 History Aspirin [Adult Low Dose Aspirin EC] 81 mg PO DAILY 10/24/18 03/24/20 History Baclofen 10 mg PO HS 10/24/18 03/24/20 History Ergocalciferol (Vitamin D2) 50,000 unit PO TU 10/24/18 03/24/20 History [Vitamin D2] Pantoprazole [Protonix] 40 mg PO DAILY 02/25/19 03/24/20 History HYDROcodone/APAP 10-325MG [[place] 2 tab PO HS 03/24/20 03/24/20 History 10-325] Isosorbide Mononitrate ER [Imdur] 30 mg PO DAILY 03/24/20 03/24/20 History Allergies Allergy/AdvReac Type Severity Reaction Status Date / Time yeast, dried [yeast] Allergy "PER Verified 03/24/20 16:17 ALLERGY TEST" Physical Exam Vitals: Vital Signs Temp Pulse Resp BP Pulse Ox 03/24/20 14:18 97.7 F 83 18 175/85 98 Intake and Output 03/24/20 03/24/20 03/24/20 06:59 14:59 22:59 Other: Weight 105.687 kg In general patient is alert and oriented 3 in no apparent distress HEENT head normocephalic and atraumatic Neck is supple no JVD no goiter no lymphadenopathy Chest exam reveals a few scattered rhonchi no wheezing Cardiac exam reveals regular heart sounds no murmurs Abdomen is soft nontender no organomegaly with normal bowel sounds Extremity exam reveals no edema no cyanosis or clubbing Neurological examination reveals no gross focal deficits Results CBC & Chem 7: 03/24/20 14:50 03/24/20 14:50 Labs: Abnormal Lab Results - Last 24 Hours (Table) 03/24/20 Range/Units 14:50 Chloride 108 H (98-107) mmol/L Glucose 105 H (74-99) mg/dL Assessment and Plan Plan: 1. Episodes of chest pain 2. Hypertension, with elevated blood pressure on admission to 175/85 3. Underlying history of hyperlipidemia 4. Underlying history of gastroesophageal reflux disease At this time patient is admitted to telemetry floor he was started on IV heparin cardiology consultation was requested Serial troponin level ordered . Will follow closely
[2020-03-24] MEDS: NITROGLYCERIN OINT 1 INCH/GM PACKET TOPICAL SCH (18:25)
[2020-03-24] MEDS: METOPROLOL TARTRATE 25 MG TAB PO SCH (20:08)
[2020-03-24] MEDS ORDERED: HYDROcodone/APAP 10-325MG 1 EACH TAB PO SCH (21:00)
[2020-03-24] MEDS ORDERED: BACLOFEN 10 MG TAB PO SCH (21:00)
[2020-03-25] MEDS ORDERED: HEPARIN SODIUM,PORCINE 5,000 UNIT/ML 1 ML VIAL IV PRN (00:15)
[2020-03-25] MEDS: NITROGLYCERIN OINT 1 INCH/GM PACKET TOPICAL SCH ×2 (01:04→06:33)
[2020-03-25 05:08] VITALS: TEMP 98.3
[2020-03-25] MEDS ORDERED: PANTOPRAZOLE 40 MG TABLET PO SCH (07:30)
[2020-03-25 08:02] VITALS: BP 125/77; PULSE 57; RESP 16
[2020-03-25 08:28] LABS: Cholesterol 178 mg/dL (<200); HDL Cholesterol 43 mg/dL (40-60); LDL Cholesterol,Calculated 100 mg/dL (0-99); Triglycerides 177 mg/dL (<150)
[2020-03-25] MEDS ORDERED: TAMSULOSIN 0.4 MG CAP.ER.24H PO SCH (09:00)
[2020-03-25] MEDS ORDERED: ASPIRIN 81 MG PO SCH (09:00)
[2020-03-25] MEDS ORDERED: FENOFIBRATE 160 MG TAB PO SCH (09:00)
[2020-03-25] MEDS ORDERED: ISOSORBIDE MONONITRATE ER 30 MG TAB.ER.24H PO SCH (09:00)
[2020-03-25] MEDS ORDERED: ASPIRIN 325 MG TAB PO SCH (09:00)
[2020-03-25] MEDS: METOPROLOL TARTRATE 25 MG TAB PO SCH (09:04)
--- NOTE | 2020-03-25 10:32 | P.CRDCN ---
History of Present Illness History of present illness: HISTORY OF PRESENTING ILLNESS This is a pleasant 74-year-old male past medical history significant for hypertension, dyslipidemia, mild nonobstructive coronary artery disease with a 10-20% plaque noted in the mid LAD per catheterization performed in 2016 and daily alcohol intake. He follows in the office with Dr. Kauffman. We have been asked to see in consultation for chest pain. The patient states yesterday he was sitting at his kitchen table when he all of a sudden became acutely lightheaded associated palpitations and discomfort in the left precordial region this episode lasted for approximately 5 seconds and subsided on its own. He felt so lightheaded that he thought he was going to pass out. He states his vision went black however he did not actually lose consciousness. This also occurred approximately 2-3 weeks ago of a similar circumstance while he was sitting down. He has never been diagnosed with an arrhythmia in the past. He underwent cardiac catheterization in 2016 revealing a mild plaque in the proximal and mid LAD approximately 10-20%. He had a Persantine stress test performed last year that was negative for reversible cardiac ischemia. DIAGNOSTICS EKG reveals sinus mechanism with diffuse mild ST depression noted inferolaterally. Consistent with previous EKGs. No acute changes. Telemetry tracings are unremarkable for an acute arrhythmia. Chest xray negative for an acute cardiopulmonary process. Laboratory reviewed, CBC unremarkable, d-dimer 0.43, sodium 139, potassium 4.3, creatinine 1.09, cardiac enzymes negative 3, NT proBNP 336, HDL 43 and LDL 100. Current cardiac medications include aspirin 81 mg daily, fenofibrate 145 mg barb ly and Imdur 30 mg daily. Most recent echocardiogram obtained in the office October 2018 revealed preserved LV systolic function with no significant wall motion abnormalities. REVIEW OF SYSTEMS At the time of my exam: CONSTITUTIONAL: Denies fever or chills. CARDIOVASCULAR: Denies chest pain, shortness of breath, orthopnea, PND or palpitations. RESPIRATORY: Denies cough. GASTROINTESTINAL: Denies abdominal pain, diarrhea, constipation, nausea or vomiting. MUSCULOSKELETAL: Denies myalgias. NEUROLOGIC: Denies numbness, tingling or weakness. ENDOCRINE: Denies fatigue, weight change, polydipsia or polyurina. GENITOURINARY: Denies burning, hematuria or urgency with micturation. HEMATOLOGIC: Denies history of anemia or bleeding. PHYSICAL EXAMINATION Blood pressure 125/77 heart rate 57 afebrile and maintaining oxygen saturation on room air. CONSTITUTIONAL: No apparent distress. HEENT: Head is normocephalic. Pupils are equal, round. Sclerae anicteric. Mucous membranes of the mouth are moist. No JVD. No carotid bruit. CHEST EXAMINATION: Lungs are clear to auscultation. No chest wall tenderness is noted on palpation or with deep breathing. HEART EXAMINATION: Regular rate and rhythm. S1, S2 heard. No murmurs, gallops or rub. ABDOMEN: Soft, nontender. Positive bowel sounds. EXTREMITIES: 2+ peripheral pulses, no lower extremity edema and no calf tenderness. NEUROLOGIC EXAMINATION: Patient is awake, alert and oriented x3. ASSESSMENT Near syncope with palpitations Chest pain, atypical. An acute coronary event has been ruled out. Recent catheterization and stress test reviewed. Hypertension Dyslipidemia Daily alcohol intake PLAN Chest pain is atypical for angina. The chest pain is somewhat of a chronic and ongoing complaint. The patient has had intermittent episodes of chest discomfort since 2016. Heart catheterization at that time revealed a 10-20% plaque of the LAD. Recent stress test negative for reversible cardiac ischemia. An acute coronary event has been ruled out. In regards to the palpitations recommend 30 day outpatient event monitoring. Obtain 2-D echocardiogram and Doppler study to assess cardiac structure and function. Follow-up in the office with Dr. Kauffman in one to 2 weeks. Alcohol cessation recommended. Thank you kindly for this consultation. Nurse Practitioner note has been reviewed, I agree with a documented findings and plan of care. Patient was seen and examined. Past Medical History Past Medical History: Chest Pain / Angina, GERD/Reflux, Hyperlipidemia, Hypertension Additional Past Medical History / Comment(s): asthmatic bronchitis, occasional chest pain-following with Dr. Kauffman., Back Pain., SOB. History of Any Multi-Drug Resistant Organisms: None Reported Past Surgical History: Cholecystectomy, Heart Catheterization Additional Past Surgical History / Comment(s): thyroid biopsy x2, heart cath x3 in past no stents - per pt. Past Anesthesia/Blood Transfusion Reactions: No Reported Reaction Past Psychological History: No Psychological Hx Reported Smoking Status: Former smoker Past Alcohol Use History: Daily Additional Past Alcohol Use History / Comment(s): STARTED SMOKING AT AGE 14 QUIT 2006 SMOKED 1-1 1 /2 PPD. DRINKS 1-2 BEERS AND SNAPPS DAILY. Past Drug Use History: None Reported - Past Family History Father Family Medical History: No Reported History Mother Family Medical History: No Reported History Medications and Allergies Home Medications Medication Instructions Recorded Confirmed Type Fenofibrate Nanocrystallized 145 mg PO DAILY #30 tablet 08/05/15 03/24/20 Rx [Tricor] Tamsulosin [Flomax] 0.4 mg PO DAILY 06/27/16 03/24/20 History Aspirin [Adult Low Dose Aspirin EC] 81 mg PO DAILY 10/24/18 03/24/20 History Baclofen 10 mg PO HS 10/24/18 03/24/20 History Ergocalciferol (Vitamin D2) 50,000 unit PO TU 10/24/18 03/24/20 History [Vitamin D2] Pantoprazole [Protonix] 40 mg PO DAILY 02/25/19 03/24/20 History HYDROcodone/APAP 10-325MG [[place] 2 tab PO HS 03/24/20 03/24/20 History 10-325] Isosorbide Mononitrate ER [Imdur] 30 mg PO DAILY 03/24/20 03/24/20 History Allergies Allergy/AdvReac Type Severity Reaction Status Date / Time yeast, dried [yeast] Allergy "PER Verified 03/24/20 16:17 ALLERGY TEST" Physical Exam Vitals: Vital Signs Temp Pulse Pulse Resp BP BP Pulse Ox 03/25/20 07:58 98.3 F 57 L 16 125/77 96 03/25/20 04:30 98.3 F 70 17 113/62 98 03/24/20 19:40 98.2 F 66 18 120/70 97 03/24/20 18:06 97.9 F 72 18 166/72 97 03/24/20 17:26 98.0 F 67 18 132/83 96 03/24/20 15:22 65 17 139/83 97 03/24/20 14:18 97.7 F 83 18 175/85 98 Intake and Output 03/24/20 03/25/20 03/25/20 22:59 06:59 14:59 Intake Total 240 70.833 20 Balance 240 70.833 20 Intake: Intake, IV Titration 70.833 20 Amount Heparin Sod,Pork in 0.45% 70.833 NaCl 25,000 unit In 0.45 % NaCl 1 250ml.bag @ 9. 462 UNITS/KG/HR 10 mls/hr IV .Q24H RENNY Rx#: [id number] Sodium Chloride 0.9% 1, 20 000 ml @ 20 mls/hr IV . Q24H RENNY Rx#:[id number] Oral 240 0 Other: # Voids 1 Weight 105.687 kg Results 03/24/20 14:50 03/24/20 14:50 Cardiac Enzymes 03/24/20 03/24/20 03/24/20 Range/Units 14:50 14:50 18:20 AST 26 (17-59) U/L Troponin I <0.012 <0.012 (0.000-0.034) ng/mL 03/24/20 Range/Units 21:20 AST (17-59) U/L Troponin I <0.012 (0.000-0.034) ng/mL Coagulation 03/24/20 03/24/20 03/25/20 Range/Units 14:50 22:37 06:25 PT 9.8 (9.0-12.0) sec APTT 24.6 34.1 H 61.0 H (22.0-30.0) sec CBC 03/24/20 Range/Units 14:50 WBC 7.6 (3.8-10.6) k/uL RBC 4.58 (4.30-5.90) m/uL Hgb 13.9 (13.0-17.5) gm/dL Hct 43.1 (39.0-53.0) % Plt Count 242 (150-450) k/uL Comprehensive Metabolic Panel 03/24/20 Range/Units 14:50 Sodium 139 (137-145) mmol/L Potassium 4.3 (3.5-5.1) mmol/L Chloride 108 H (98-107) mmol/L Carbon Dioxide 22 (22-30) mmol/L BUN 17 (9-20) mg/dL Creatinine 1.09 (0.66-1.25) mg/dL Glucose 105 H (74-99) mg/dL Calcium 9.6 (8.4-10.2) mg/dL AST 26 (17-59) U/L ALT 15 (4-49) U/L Alkaline Phosphatase 69 (38-126) U/L Total Protein 6.9 (6.3-8.2) g/dL Albumin 4.3 (3.5-5.0) g/dL Current Medications Generic Name Dose Route Start Last Admin Trade Name Freq PRN Reason Stop Dose Admin Hydrocodone Bitart/Acetaminophen 2 each 03/24/20 21:00 03/24/20 20:07 Hydrocodone/Apap 10-325mg 1 Each Tab PO 2 each HS RENNY Administration Aspirin 325 mg 03/25/20 09:00 Aspirin 325 Mg Tab PO DAILY RENNY Baclofen 10 mg 03/24/20 21:00 03/24/20 20:08 Baclofen 10 Mg Tab PO 10 mg HS RENNY Administration Ergocalciferol 50,000 unit 03/29/20 09:00 Ergocalciferol 50,000 Unit Cap PO TU [facility] Fenofibrate 160 mg 03/25/20 09:00 Fenofibrate 160 Mg Tab PO DAILY [facility] Heparin Sodium (Porcine) 0 unit 03/25/20 00:15 03/25/20 00:26 Heparin Sodium,Porcine 5,000 Unit/Ml 1 Ml Vial IV 4,000 unit PER PROTOCOL PRN Administration Low PTT Protocol Sodium Chloride 1,000 mls @ 20 mls/hr 03/24/20 17:00 03/24/20 17:22 Saline 0.9% IV 20 mls/hr .Q24H RENNY Administration Heparin Sodium/Sodium Chloride 250 mls @ 10 mls/hr 03/24/20 17:00 03/25/20 00:27 25,000 unit/ Sodium Chloride IV 12.462 units/kg/hr .Q24H RENNY 13.171 mls/hr Titration Protocol 9.462 UNITS/KG/HR Isosorbide Mononitrate 30 mg 03/25/20 09:00 Isosorbide Mononitrate Er 30 Mg Tab.Er.24h PO DAILY [facility] Metoprolol Tartrate 25 mg 03/24/20 21:00 03/24/20 20:08 Metoprolol Tartrate 25 Mg Tab PO 25 mg BID RENNY Administration Nitroglycerin 0.4 mg 03/24/20 16:48 Nitroglycerin Sl Tabs 0.4 Mg Tab SUBLINGUAL Q5M PRN Chest Pain Nitroglycerin 1 inch 03/24/20 18:00 03/25/20 06:33 Nitroglycerin Oint 1 Inch/Gm Packet TOPICAL Not Given Q6HR [facility] Pantoprazole Sodium 40 mg 03/25/20 07:30 03/25/20 06:30 Pantoprazole 40 Mg Tablet PO 40 mg DAILY@0730 RENNY Administration Tamsulosin HCl 0.4 mg 03/25/20 09:00 Tamsulosin 0.4 Mg Cap.Er.24h PO DAILY RENNY Intake and Output 03/24/20 03/25/20 03/25/20 22:59 06:59 14:59 Intake Total 240 70.833 20 Balance 240 70.833 20 Intake: Intake, IV Titration 70.833 20 Amount Heparin Sod,Pork in 0.45% 70.833 NaCl 25,000 unit In 0.45 % NaCl 1 250ml.bag @ 9. 462 UNITS/KG/HR 10 mls/hr IV .Q24H RENNY Rx#: [id number] Sodium Chloride 0.9% 1, 20 000 ml @ 20 mls/hr IV . Q24H RENNY Rx#:[id number] Oral 240 0 Other: # Voids 1 Weight 105.687 kg 03/24/20 14:50 03/24/20 14:50
--- NOTE | 2020-03-25 11:54 | ECHOF ---
Referral Reason:near syncope MEASUREMENTS -------- HEIGHT: 177.8 cm WEIGHT: 105.7 kg BP: 125/77 RVIDd: 3.5 cm (< 3.3) IVSd: 1.2 cm (0.6 - 1.1) LVIDd: 5.1 cm (3.9 - 5.3) LVPWd: 1.3 cm (0.6 - 1.1) IVSs: 1.8 cm LVIDs: 3.5 cm LVPWs: 1.8 cm LA Diam: 3.5 cm (2.7 - 3.8) LAESV Index (A-L): 29.77 ml/m Ao Diam: 3.3 cm (2.0 - 3.7) AV Cusp: 2.3 cm (1.5 - 2.6) MV EXCURSION: 16.312 mm (> 18.000) MV EF SLOPE: 67 mm/s (70 - 150) EPSS: 2.0 cm MV E Nik: 0.97 m/s MV DecT: 241 ms MV A Ink: 0.77 m/s MV E/A Ratio: 1.25 RAP: 5.00 mmHg RVSP: 24.03 mmHg FINDINGS -------- Sinus rhythm. This was a technically adequate study. Left ventricular wall thickness is normal. There is mild global hypokinesis of LV . Overall left ventricular systolic function is normal with, an EF between 60 - 65 %. The right ventricle is mildly enlarged. LA is midly dilated 29-33ml/m2. The right atrium is normal in size. Interatrial and interventricular septum intact. There is mild aortic valve sclerosis. The mitral valve leaflets are mildly thickened. Mild mitral annular calcification present. Mild tricuspid regurgitation present. Right ventricular systolic pressure is normal at < 35 mmHg. There is no pulmonic regurgitation present. The aortic root size is normal. Normal inferior vena cava with normal inspiratory collapse consistent with estimated right atrial pre ssure of 5 mmHg. There is no pericardial effusion. CONCLUSIONS -------- 1. Left ventricular wall thickness is normal. 2. There is mild global hypokinesis of LV . 3. Overall left ventricular systolic function is normal with, an EF between 60 - 65 %. 4. The right ventricle is mildly enlarged. 5. LA is midly dilated 29-33ml/m2. 6. There is mild aortic valve sclerosis. 7. The mitral valve leaflets are mildly thickened. 8. Mild mitral annular calcification present. 9. Mild tricuspid regurgitation present. 10. There is no pericardial effusion. CASTING DIRECTOR: Paz Piña RDCS
--- NOTE | 2020-03-25 12:30 | P.DS ---
Providers Date of admission: 03/24/20 16:48 Expected date of discharge: 03/25/20 Attending physician: Andres Brown Consults: 03/24/20 16:48 Consult Physician Urgent Consulting Provider: Mario Rockwell Consult Reason/Comments: Chest pain Do you want consulting provider notified?: Yes Primary care physician: [facility] Emergency Course: Diagnosis on discharge: 1. Episodes of chest pain, acute coronary syndrome ruled out, echocardiogram done and was within normal limits 2. Hypertension, with elevated blood pressure on admission to 175/85 metoprolol for heart rate 25 mg by mouth twice a day added to regimen 3. Underlying history of hyperlipidemia 4. Underlying history of gastroesophageal reflux disease 5. 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 Roberts, first EKG and first set of cardiac enzymes were negative, patient was admitted to observation unit for further evaluation and cardiology consultation was requested. 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 Patient describes a pressure sensation in the middle of his chest radiating to the back, patient also stated that he had some dizziness, he stated that he passed out earlier in the day he is unable to give much details about that incident, patient also is having some shortness of breath, he was evaluated in the emergency room and was admitted to 24-hour observation cardiology consultation was requested. On 03/25/2020 patient was seen and examined on the medical floor he is alert and oriented 3 in no apparent distress he is feeling well and denies any symptoms at this time there is no fever or chills no headache or dizziness no chest pain no shortness of breath no cough no nausea or vomiting no abdominal pain no diarrhea no burning with urination no frequency or urgency and no hematuria. He was evaluated by cardiology and was cleared for discharge, metoprolol 25 mg by mouth twice a day was added to his regimen, he was also given sublingual nitroglycerin when necessary. Patient was complaining of palpitation he was given a 30 day event monitor he will follow-up with cardiology. Patient Condition at Discharge: Fair Plan - Discharge Summary Discharge Rx Participant: No New Discharge Prescriptions: New Metoprolol Tartrate [Lopressor] 25 mg PO BID tab Nitroglycerin Sl Tabs [Nitrostat] 0.4 mg SUBLINGUAL Q5M PRN tab PRN Reason: Chest Pain Continue Fenofibrate Nanocrystallized [Tricor] 145 mg PO DAILY #30 tablet Tamsulosin [Flomax] 0.4 mg PO DAILY Baclofen 10 mg PO HS Aspirin [Adult Low Dose Aspirin EC] 81 mg PO DAILY Ergocalciferol (Vitamin D2) [Vitamin D2] 50,000 unit PO TU Pantoprazole [Protonix] 40 mg PO DAILY Isosorbide Mononitrate ER [Imdur] 30 mg PO DAILY HYDROcodone/APAP 10-325MG [[place] 10-325] 2 tab PO HS Discharge Medication List Fenofibrate Nanocrystallized [Tricor] 145 mg PO DAILY #30 tablet 08/05/15 [Rx] Tamsulosin [Flomax] 0.4 mg PO DAILY 06/27/16 [History] Aspirin [Adult Low Dose Aspirin EC] 81 mg PO DAILY 10/24/18 [History] Baclofen 10 mg PO HS 10/24/18 [History] Ergocalciferol (Vitamin D2) [Vitamin D2] 50,000 unit PO TU 10/24/18 [History] Pantoprazole [Protonix] 40 mg PO DAILY 02/25/19 [History] HYDROcodone/APAP 10-325MG [[place] 10-325] 2 tab PO HS 03/24/20 [History] Isosorbide Mononitrate ER [Imdur] 30 mg PO DAILY 03/24/20 [History] Metoprolol Tartrate [Lopressor] 25 mg PO BID tab 03/25/20 [Rx] Nitroglycerin Sl Tabs [Nitrostat] 0.4 mg SUBLINGUAL Q5M PRN tab 03/25/20 [Rx] Follow up Appointment(s)/Referral(s): Andres Brown MD [Primary Care Provider] - 1-2 days
[2020-03-29] MEDS ORDERED: ERGOCALCIFEROL 50,000 UNIT CAP PO SCH (09:00)
== END 2020-03-25 13:19 ==
LOC: EC 14:17 → 3NCARDOBS 16:48
PROVIDERS: ADMIT Internal Medicine; ATTEND Internal Medicine
DX: R07.89 Other chest pain (principal); R06.02 Shortness of breath; R00.2 Palpitations; R55 Syncope and collapse; R07.2 Precordial pain; I10 Essential (primary) hypertension; E78.5 Hyperlipidemia, unspecified; K21.9 Gastro-esophageal reflux disease without esophagitis; R42 Dizziness and giddiness; M54.9 Dorsalgia, unspecified; I25.10 Atherosclerotic heart disease of native coronary artery without angina pectoris; K30 Functional dyspepsia; J45.909 Unspecified asthma, uncomplicated; Z79.82 Long term (current) use of aspirin; Z79.899 Other long term (current) drug therapy; Z79.891 Long term (current) use of opiate analgesic; Z91.018 Allergy to other foods; Z90.49 Acquired absence of other specified parts of digestive tract; Z87.891 Personal history of nicotine dependence
CPT/HCPCS: 93005 ×2; 96366 ×2; 96376 ×2; 96365; 99285; 36415; 93306; 93270; 85379; 83880; 80061; 80053; 82550; 83735; 84484; 85025; 85610; 85730 ×2; 71046; G0378 ×2; J1644 ×3

== ENCOUNTER 2020-05-26 17:22 | Observation (INO) | payer MEDICARE ==
[2020-05-26 17:30] VITALS: RESP 18
[2020-05-26] MEDS ORDERED: NITROGLYCERIN OINT 1 INCH/GM PACKET TOPICAL STA (17:59)
--- NOTE | 2020-05-26 18:02 | ED ---
Chest Pain HPI - General Chief Complaint: Chest Pain Stated Complaint: Chest Pain/Abd Pain Time Seen by Provider: 05/26/20 17:33 Source: patient, family, RN notes reviewed Mode of arrival: wheelchair - History of Present Illness Initial Comments: This is a 75-year-old male with a history of heart disease and states helping his son-in-law lifted the refrigerator into a truck prior to arrival he started developing retrosternal chest pain shortness of breath. She states the pain was 8-9/10 severity he did take 2 or 3 nitroglycerin it was down to a 6/10 still having symptoms however. No nausea vomiting sweats or other symptoms feel a prior heart MD Complaint: chest pain - Related Data Home Medications Medication Instructions Recorded Confirmed Tamsulosin [Flomax] 0.4 mg PO DAILY 06/27/16 05/26/20 Aspirin [Adult Low Dose Aspirin EC] 81 mg PO DAILY 10/24/18 05/26/20 Baclofen 10 mg PO HS 10/24/18 05/26/20 Ergocalciferol (Vitamin D2) 50,000 unit PO WE 10/24/18 05/26/20 [Vitamin D2] Pantoprazole [Protonix] 40 mg PO DAILY 02/25/19 05/26/20 HYDROcodone/APAP 10-325MG [[place] 2 tab PO HS 03/24/20 05/26/20 10-325] Isosorbide Mononitrate ER [Imdur] 30 mg PO DAILY 03/24/20 05/26/20 Dicyclomine [Bentyl] 20 mg PO QID PRN 05/26/20 05/26/20 HYDROcodone/APAP 10-325MG [[place] 1 tab PO DAILY PRN 05/26/20 05/26/20 10-325] Previous Rx's Medication Instructions Recorded Fenofibrate Nanocrystallized 145 mg PO DAILY #30 tablet 08/05/15 [Tricor] Metoprolol Tartrate [Lopressor] 25 mg PO BID tab 03/25/20 Nitroglycerin Sl Tabs [Nitrostat] 0.4 mg SUBLINGUAL Q5M PRN tab 03/25/20 Allergies Allergy/AdvReac Type Severity Reaction Status Date / Time yeast, dried [yeast] Allergy "PER Verified 05/26/20 18:47 ALLERGY TEST" Review of Systems ROS Statement: Those systems with pertinent positive or pertinent negative responses have been documented in the HPI. ROS Other: All systems not noted in ROS Statement are negative. EKG Findings - EKG Results: EKG: interpreted by JAY, sinus rhythm (Sinus rhythm with marked sinus rhythm a rate 84 CT interval 140 QRS duration 76 DT says QTC 368/[address] configuration) Past Medical History Past Medical History: Chest Pain / Angina, GERD/Reflux, Hyperlipidemia, Hypertension Additional Past Medical History / Comment(s): asthmatic bronchitis, occasional chest pain-following with Dr. Kauffman., Back Pain., SOB. History of Any Multi-Drug Resistant Organisms: None Reported Past Surgical History: Cholecystectomy, Heart Catheterization Additional Past Surgical History / Comment(s): thyroid biopsy x2, heart cath x3 in past no stents - per pt. Past Anesthesia/Blood Transfusion Reactions: No Reported Reaction Past Psychological History: No Psychological Hx Reported Smoking Status: Former smoker Past Alcohol Use History: Daily Past Drug Use History: None Reported - Past Family History Father Family Medical History: No Reported History Mother Family Medical History: No Reported History General Exam - General Exam Comments Initial Comments: this a well-developed well-nourished awake alert oriented times 3 male General appearance: alert, in no apparent distress Head exam: Present: atraumatic, normocephalic, normal inspection Eye exam: Present: normal appearance, PERRL, EOMI. Absent: scleral icterus, conjunctival injection, periorbital swelling ENT exam: Present: normal exam, mucous membranes moist Neck exam: Present: normal inspection. Absent: tenderness, meningismus, lymphadenopathy Respiratory exam: Present: normal lung sounds bilaterally. Absent: respiratory distress, wheezes, rales, rhonchi, stridor Cardiovascular Exam: Present: regular rate, normal rhythm, normal heart sounds. Absent: systolic murmur, diastolic murmur, rubs, gallop, clicks GI/Abdominal exam: Present: soft, normal bowel sounds. Absent: distended, tenderness, guarding, rebound, rigid Extremities exam: Present: normal inspection, full ROM, normal capillary refill. Absent: tenderness, pedal edema, joint swelling, calf tenderness Back exam: Present: normal inspection Neurological exam: Present: alert, oriented X3, CN II-XII intact Psychiatric exam: Present: normal affect, normal mood Skin exam: Present: warm, dry, intact, normal color. Absent: rash Course Vital Signs 05/26/20 05/26/20 05/26/20 17:27 18:12 19:06 Temperature 98.1 F Pulse Rate 105 H 76 75 Respiratory 18 18 18 Rate Blood Pressure 147/72 123/73 117/86 O2 Sat by Pulse 98 98 97 Oximetry 05/26/20 19:10 Temperature Pulse Rate 68 Respiratory 18 Rate Blood Pressure 124/61 O2 Sat by Pulse 98 Oximetry - Reevaluation(s) Reevaluation #1: 05/26/20 20:04 did get some relief from nitro. Reevaluation #2: 05/26/20 20:04 examination the patient he points to his upper abdomen reexamination abdomen reveals normal bowel sounds no focal tenderness he does have a history of a cholecystectomy. No pulsatile masses. 05/26/20 20:05 additional lab work will be ordered Chest Pain MDM - MDM imaging reviewed no acute findings. I did discuss findings the patient as well as Dr. Brown. Patient will be admitted with cardiology consultation the patient does see Dr. Kauffman. Critical Care Time Critical Care Time: Yes Total Critical Care Time: 31 Critical Care Time: critical care time includes initial presentation with history physical labs x- rays multiple reevaluation the patient. Review of old charting discussed with patient regarding findings discussed with the admitting physician admission orders and documentation of the above Disposition Clinical Impression: Unstable angina, Chest pain Disposition: ADMITTED IP TO THIS HOSP Condition: Fair Referrals: Andres Brown MD [Primary Care Provider] - 1-2 days
[2020-05-26 18:12] LABS: Basophils # (A) 0.1 k/uL (0-0.2); Basophils % (A) 1 %; Eosinophils # (A) 0.3 k/uL (0-0.7); Eosinophils % (A) 4 %; HCT 42.5 % (39.0-53.0); HGB 13.5 gm/dL (13.0-17.5); Lymphocytes # (A) 2.2 k/uL (1.0-4.8); Lymphocytes % (A) 36 %; MCH 29.3 pg (25.0-35.0); MCHC 31.8 g/dL (31.0-37.0); MCV 92.1 fL (80.0-100.0); Monocytes # (A) 0.3 k/uL (0-1.0); Monocytes % (A) 5 %; Neutrophils # (A) 3.2 k/uL (1.3-7.7); Neutrophils % (A) 52 %; Platelet Count 246 k/uL (150-450); RBC 4.61 m/uL (4.30-5.90); RDW 12.3 % (11.5-15.5); WBC 6.2 k/uL (3.8-10.6)
[2020-05-26 18:17] LABS: Albumin 4.4 g/dL (3.5-5.0); Calcium 9.6 mg/dL (8.4-10.2); Magnesium 1.6 mg/dL (1.6-2.3); Partial Thromboplastin Time 23.6 sec (22.0-30.0); Potassium 3.7 mmol/L (3.5-5.1); Prothrombin Time 10.2 sec (9.0-12.0); Total Bilirubin 0.5 mg/dL (0.2-1.3); Total Protein 7.2 g/dL (6.3-8.2)
--- NOTE | 2020-05-26 18:25 | XR ---
EXAMINATION TYPE: XR chest 2V DATE OF EXAM: 05/26/2020 COMPARISON: 03/24/2020 HISTORY: Chest pain TECHNIQUE: FINDINGS: Heart and mediastinum are normal. Lungs are clear. Diaphragm is normal. Bony thorax appears normal. There are chest leads. IMPRESSION: Normal chest. No change.
[2020-05-26] MEDS ORDERED: NITROGLYCERIN SL TABS 0.4 MG TAB SUBLINGUAL PRN (20:07)
[2020-05-26] MEDS ORDERED: HEPARIN SODIUM,PORCINE 5,000 UNIT/ML 1 ML VIAL IV ONE (20:07)
[2020-05-26] MEDS ORDERED: DICYCLOMINE 20 MG TAB PO PRN (20:10)
[2020-05-26] MEDS ORDERED: HYDROcodone/APAP 10-325MG 1 EACH TAB PO PRN (20:10)
[2020-05-26] MEDS ORDERED: HEPARIN SOD,PORK IN 0.45% NACL 25,000 UNIT in 0.45% NACL 1 250ML.BAG IV SCH (20:15)
[2020-05-26] MEDS ORDERED: SODIUM CHLORIDE 0.9% 1,000 ML IV SCH (20:15)
[2020-05-26] MEDS ORDERED: MAG HYDROX/AL HYDROX/SIMETH 30 ML, HYOSCYAMINE ELIXIR 10 ML PO ONE ×2 (20:44)
[2020-05-26] MEDS ORDERED: BACLOFEN 10 MG TAB PO SCH (21:00)
[2020-05-26] MEDS ORDERED: HYDROcodone/APAP 10-325MG 1 EACH TAB PO SCH (21:00)
[2020-05-26] MEDS: METOPROLOL TARTRATE 25 MG TAB PO SCH (21:45)
[2020-05-27] MEDS ORDERED: NITROGLYCERIN OINT 1 INCH/GM PACKET TOPICAL SCH
[2020-05-27 04:15] LABS: Cholesterol 183 mg/dL (<200); HDL Cholesterol 41 mg/dL (40-60); LDL Cholesterol,Calculated 109 mg/dL (0-99); Triglycerides 166 mg/dL (<150)
[2020-05-27] MEDS ORDERED: HEPARIN SODIUM,PORCINE 5,000 UNIT/ML 1 ML VIAL IV PRN (04:20)
[2020-05-27] MEDS ORDERED: PANTOPRAZOLE 40 MG TABLET PO SCH (07:30)
[2020-05-27 07:49] VITALS: BP 146/77; PULSE 55; TEMP 98
[2020-05-27] MEDS ORDERED: TAMSULOSIN 0.4 MG CAP.ER.24H PO SCH (09:00)
[2020-05-27] MEDS ORDERED: ASPIRIN 325 MG TAB PO SCH (09:00)
[2020-05-27] MEDS ORDERED: FENOFIBRATE 160 MG TAB PO SCH (09:00)
[2020-05-27] MEDS ORDERED: ISOSORBIDE MONONITRATE ER 30 MG TAB.ER.24H PO SCH (09:00)
[2020-05-27] MEDS: METOPROLOL TARTRATE 25 MG TAB PO SCH (09:07)
--- NOTE | 2020-05-27 11:28 | P.CRDCN ---
History of Present Illness Consult date: 05/27/20 History of present illness: CHIEF COMPLAINT: Chest pain HISTORY OF PRESENT ILLNESS: This is a 75-year old male with a past medical history significant for hypertension, hyperlipidemia, mild obstructive coronary artery disease, and daily alcohol use. Patient follows in the office with Dr. Kauffman. We have been asked to see the patient in consultation for chest pain. Patient examined this morning at the bedside. Patient states he was helping his son load a fridge into a truck yesterday when he began having chest pain. He states the pain radiated around to his back. He reports feeling short of breath as well. He states the pain lasted for 2-3 hours. He took 3 nitro which did not help relieve his pain. At the time of examination this morning, the patient denies any chest pain or pressure. He denies shortness of breath. DIAGNOSTICS: EKG reveals sinus rhythm with ST depression in inferior/lateral leads which is visualized on previous EKGs Chest xray negative for acute process. Laboratory data: WBC 6.2. Hemoglobin 13.5. Platelet count 246. D-dimer 0.33. Sodium 140. Potassium 3.7. BUN 16. Creatinine 1.11. Magnesium 1.6. Troponins negative 3. BNP 310. Current home cardiac medications include Imdur 30 mg daily, metoprolol 25 mg twice a day, aspirin 81 mg daily and TriCor 140mg daily Patient underwent cardiac catheterization in 2015 revealing 10-20% plaque noted in the mid LAD Patient underwent Persantine stress test in February 2019 which was negative for reversible ischemia Echocardiogram reveals ejection fraction 60-65% with mild tricuspid regurgitation REVIEW OF SYSTEMS: At the time of my exam: CONSTITUTIONAL: Denies fever or chills. HEENT: Denies blurred vision, vision changes, or eye pain. Denies hemoptysis CARDIOVASCULAR: Denies chest pain, orthopnea, PND or palpitations RESPIRATORY: No shortness of breath. GASTROINTESTINAL: Denies abdominal pain. Denies nausea or vomiting. HEMATOLOGIC: Denies bleeding disorders. GENITOURINARY: Denies any blood in urine. SKIN: Denies pruitis. Denies rash. PHYSICAL EXAM: VITAL SIGNS: Reviewed. GENERAL: Well-developed in no acute distress. HEENT: Head is normocephalic. Pupils are equal, round. Sclerae anicteric. Mucous membranes of the mouth are moist. Neck supple. No JVD or thyromegaly LUNGS: Respirations even and unlabored. Lungs essentially clear to auscultation bilaterally. HEART: Regular rate and rhythm. S1 and S2 heard. ABDOMEN: Soft. Nondistended. Nontender. EXTREMITIES: Normal range of motion. No clubbing or cyanosis. Peripheral pulses intact. No lower extremity edema NEUROLOGIC: Awake and alert. Oriented x 3. ASSESSMENT: Chest pain Hypertension Hyperlipidemia Mild nonobstructive coronary artery disease Daily alcohol use GERD Obesity: BMI 33.7 PLAN: An acute coronary event has been ruled out Discontinue IV heparin Resume home cardiac medications Patient may be discharged home today from a cardiac perspective. He is to follow up outpatient with Dr. Kauffman Nurse practitioner note has been reviewed by physician. Signing provider agrees with the documented findings, assessment, and plan of care. Past Medical History Past Medical History: Chest Pain / Angina, GERD/Reflux, Hyperlipidemia, Hypertension Additional Past Medical History / Comment(s): asthmatic bronchitis, occasional chest pain-following with Dr. Kauffman., Back Pain., SOB. History of Any Multi-Drug Resistant Organisms: None Reported Past Surgical History: Cholecystectomy, Heart Catheterization Additional Past Surgical History / Comment(s): thyroid biopsy x2, heart cath x3 in past no stents - per pt. Past Anesthesia/Blood Transfusion Reactions: No Reported Reaction Past Psychological History: No Psychological Hx Reported Smoking Status: Former smoker Past Alcohol Use History: Daily Additional Past Alcohol Use History / Comment(s): STARTED SMOKING AT AGE 14 QUIT 2006 SMOKED 1-1 1 /2 PPD. DRINKS 1-2 BEERS AND SNAPPS DAILY. Past Drug Use History: None Reported - Past Family History Father Family Medical History: No Reported History Mother Family Medical History: No Reported History Medications and Allergies Home Medications Medication Instructions Recorded Confirmed Type Fenofibrate Nanocrystallized 145 mg PO DAILY #30 tablet 08/05/15 05/26/20 Rx [Tricor] Tamsulosin [Flomax] 0.4 mg PO DAILY 06/27/16 05/26/20 History Aspirin [Adult Low Dose Aspirin EC] 81 mg PO DAILY 10/24/18 05/26/20 History Baclofen 10 mg PO HS 10/24/18 05/26/20 History Ergocalciferol (Vitamin D2) 50,000 unit PO WE 10/24/18 05/26/20 History [Vitamin D2] Pantoprazole [Protonix] 40 mg PO DAILY 02/25/19 05/26/20 History HYDROcodone/APAP 10-325MG [[place] 2 tab PO HS 03/24/20 05/26/20 History 10-325] Isosorbide Mononitrate ER [Imdur] 30 mg PO DAILY 03/24/20 05/26/20 History Metoprolol Tartrate [Lopressor] 25 mg PO BID tab 03/25/20 05/26/20 Rx Nitroglycerin Sl Tabs [Nitrostat] 0.4 mg SUBLINGUAL Q5M PRN tab 03/25/20 05/26/20 Rx Dicyclomine [Bentyl] 20 mg PO QID PRN 05/26/20 05/26/20 History HYDROcodone/APAP 10-325MG [[place] 1 tab PO DAILY PRN 05/26/20 05/26/20 History 10-325] Allergies Allergy/AdvReac Type Severity Reaction Status Date / Time yeast, dried [yeast] Allergy "PER Verified 05/26/20 18:47 ALLERGY TEST" Physical Exam Vitals: Vital Signs Temp Pulse Pulse Resp BP BP Pulse Ox 05/27/20 07:45 98.0 F 55 L 18 146/77 98 05/27/20 04:30 97.4 F L 52 L 18 120/61 97 05/26/20 21:16 97.9 F 65 18 134/80 98 05/26/20 20:57 98.1 F 68 18 124/61 98 05/26/20 19:10 68 18 124/61 98 05/26/20 19:06 75 18 117/86 97 05/26/20 18:12 76 18 123/73 98 05/26/20 17:27 98.1 F 105 H 18 147/72 98 Intake and Output 05/26/20 05/27/20 05/27/20 22:59 06:59 14:59 Intake Total 80.492 Balance 80.492 Intake: Intake, IV Titration 80.492 Amount Heparin Sod,Pork in 0.45% 80.492 NaCl 25,000 unit In 0.45 % NaCl 1 250ml.bag @ 9.38 UNITS/KG/HR 9.999 mls/hr IV .Q24H [facility] Rx#: [id number] Other: Voiding Method Toilet Toilet Toilet # Voids 1 2 Weight 106.594 kg Results 05/26/20 17:44 05/26/20 17:44 Cardiac Enzymes 05/26/20 05/26/20 05/26/20 Range/Units 17:44 17:44 20:35 AST 29 (17-59) U/L Troponin I <0.012 <0.012 (0.000-0.034) ng/mL 05/27/20 Range/Units 00:05 AST (17-59) U/L Troponin I <0.012 (0.000-0.034) ng/mL Coagulation 05/26/20 05/27/20 Range/Units 17:44 03:14 PT 10.2 (9.0-12.0) sec APTT 23.6 31.7 H (22.0-30.0) sec Lipids 05/27/20 Range/Units 03:14 Triglycerides 166 H (<150) mg/dL Cholesterol 183 (<200) mg/dL HDL Cholesterol 41 (40-60) mg/dL CBC 05/26/20 Range/Units 17:44 WBC 6.2 (3.8-10.6) k/uL RBC 4.61 (4.30-5.90) m/uL Hgb 13.5 (13.0-17.5) gm/dL Hct 42.5 (39.0-53.0) % Plt Count 246 (150-450) k/uL Comprehensive Metabolic Panel 05/26/20 Range/Units 17:44 Sodium 140 (137-145) mmol/L Potassium 3.7 (3.5-5.1) mmol/L Chloride 107 (98-107) mmol/L Carbon Dioxide 26 (22-30) mmol/L BUN 16 (9-20) mg/dL Creatinine 1.11 (0.66-1.25) mg/dL Glucose 119 H (74-99) mg/dL Calcium 9.6 (8.4-10.2) mg/dL AST 29 (17-59) U/L ALT 21 (4-49) U/L Alkaline Phosphatase 63 (38-126) U/L Total Protein 7.2 (6.3-8.2) g/dL Albumin 4.4 (3.5-5.0) g/dL Current Medications Generic Name Dose Route Start Last Admin Trade Name Freq PRN Reason Stop Dose Admin Hydrocodone Bitart/Acetaminophen 2 each 05/26/20 21:00 05/26/20 21:45 Hydrocodone/Apap 10-325mg 1 Each Tab PO 2 each HS [facility]ENNY Administration Hydrocodone Bitart/Acetaminophen 1 each 05/26/20 20:10 Hydrocodone/Apap 10-325mg 1 Each Tab PO DAILY PRN Pain Aspirin 325 mg 05/27/20 09:00 05/27/20 09:07 Aspirin 325 Mg Tab PO 325 mg DAILY RENNY Administration Baclofen 10 mg 05/26/20 21:00 05/26/20 21:45 Baclofen 10 Mg Tab PO 10 mg HS RENNY Administration Dicyclomine HCl 20 mg 05/26/20 20:10 05/26/20 20:23 Dicyclomine 20 Mg Tab PO 20 mg QID PRN Administration IBS Ergocalciferol 50,000 unit 06/01/20 09:00 Ergocalciferol 50,000 Unit Cap PO WE [facility]EN[facility] Fenofibrate 160 mg 05/27/20 09:00 05/27/20 09:07 Fenofibrate 160 Mg Tab PO 160 mg DAILY RENNY Administration Heparin Sodium (Porcine) 0 unit 05/27/20 04:20 05/27/20 04:26 Heparin Sodium,Porcine 5,000 Unit/Ml 1 Ml Vial IV 4,000 unit PER PROTOCOL PRN Administration Low PTT Protocol Sodium Chloride 1,000 mls @ 20 mls/hr 05/26/20 20:15 05/26/20 20:21 Saline 0.9% IV 20 mls/hr .Q24H [facility] Administration Isosorbide Mononitrate 30 mg 05/27/20 09:00 05/27/20 09:07 Isosorbide Mononitrate Er 30 Mg Tab.Er.24h PO 30 mg DAILY RENNY Administration Metoprolol Tartrate 25 mg 05/26/20 21:00 05/27/20 09:07 Metoprolol Tartrate 25 Mg Tab PO 25 mg BID RENNY Administration Nitroglycerin 0.4 mg 05/26/20 20:07 Nitroglycerin Sl Tabs 0.4 Mg Tab SUBLINGUAL Q5M PRN Chest Pain Pantoprazole Sodium 40 mg 05/27/20 07:30 05/27/20 06:21 Pantoprazole 40 Mg Tablet PO 40 mg DAILY@0730 RENNY Administration Tamsulosin HCl 0.4 mg 05/27/20 09:00 05/27/20 09:07 Tamsulosin 0.4 Mg Cap.Er.24h PO 0.4 mg DAILY RENNY Administration Intake and Output 05/26/20 05/27/20 05/27/20 22:59 06:59 14:59 Intake Total 80.492 Balance 80.492 Intake: Intake, IV Titration 80.492 Amount Heparin Sod,Pork in 0.45% 80.492 NaCl 25,000 unit In 0.45 % NaCl 1 250ml.bag @ 9.38 UNITS/KG/HR 9.999 mls/hr IV .Q24H [facility] Rx#: [id number] Other: Voiding Method Toilet Toilet Toilet # Voids 1 2 Weight 106.594 kg 05/26/20 17:44 05/26/20 17:44
--- NOTE | 2020-05-27 11:40 | P.HPIM ---
History of Present Illness H&P Date: 05/27/20 Chief Complaint: Chest pain This is a 75-year-old male patient who presents to the ER with complaints of chest pain. Patient reports he was moving fridge with son restarted to express chest pain that lasted 2-3 hours with shortness of breath. She did state that it radiated to back. Patient took 3 nitros without relief. Patient does have past medical history of chest pain, essential hypertension, hyperlipidemia and daily alcohol use. Troponins negative 3. Chest x-ray completed showing normal chest. No change. Cardiology services have been consulted. Patient was initially started on heparin but heparin has been DC'd. Labs unremarkable. D- dimer within normal limits 0.33. At this time patient denies any chest pain. Patient denies shortness breath. Patient denies cough. Denies nausea vomiting or diarrhea. Patient denies any urinary burning or frequency. Review of Systems please refer to HPI otherwise unremarkable Past Medical History Past Medical History: Chest Pain / Angina, GERD/Reflux, Hyperlipidemia, Hypertension Additional Past Medical History / Comment(s): asthmatic bronchitis, occasional chest pain-following with Dr. Kauffman., Back Pain., SOB. History of Any Multi-Drug Resistant Organisms: None Reported Past Surgical History: Cholecystectomy, Heart Catheterization Additional Past Surgical History / Comment(s): thyroid biopsy x2, heart cath x3 in past no stents - per pt. Past Anesthesia/Blood Transfusion Reactions: No Reported Reaction Past Psychological History: No Psychological Hx Reported Smoking Status: Former smoker Past Alcohol Use History: Daily Additional Past Alcohol Use History / Comment(s): STARTED SMOKING AT AGE 14 QUIT 2006 SMOKED 1-1 1 /2 PPD. DRINKS 1-2 BEERS AND SNAPPS DAILY. Past Drug Use History: None Reported - Past Family History Father Family Medical History: No Reported History Mother Family Medical History: No Reported History Medications and Allergies Home Medications Medication Instructions Recorded Confirmed Type Fenofibrate Nanocrystallized 145 mg PO DAILY #30 tablet 08/05/15 05/26/20 Rx [Tricor] Tamsulosin [Flomax] 0.4 mg PO DAILY 06/27/16 05/26/20 History Aspirin [Adult Low Dose Aspirin EC] 81 mg PO DAILY 10/24/18 05/26/20 History Baclofen 10 mg PO HS 10/24/18 05/26/20 History Ergocalciferol (Vitamin D2) 50,000 unit PO WE 10/24/18 05/26/20 History [Vitamin D2] Pantoprazole [Protonix] 40 mg PO DAILY 02/25/19 05/26/20 History HYDROcodone/APAP 10-325MG [[place] 2 tab PO HS 03/24/20 05/26/20 History 10-325] Isosorbide Mononitrate ER [Imdur] 30 mg PO DAILY 03/24/20 05/26/20 History Metoprolol Tartrate [Lopressor] 25 mg PO BID tab 03/25/20 05/26/20 Rx Nitroglycerin Sl Tabs [Nitrostat] 0.4 mg SUBLINGUAL Q5M PRN tab 03/25/20 05/26/20 Rx Dicyclomine [Bentyl] 20 mg PO QID PRN 05/26/20 05/26/20 History HYDROcodone/APAP 10-325MG [[place] 1 tab PO DAILY PRN 05/26/20 05/26/20 History 10-325] Allergies Allergy/AdvReac Type Severity Reaction Status Date / Time yeast, dried [yeast] Allergy "PER Verified 05/26/20 18:47 ALLERGY TEST" Physical Exam Vitals: Vital Signs Temp Pulse Pulse Resp BP BP Pulse Ox 05/27/20 07:45 98.0 F 55 L 18 146/77 98 05/27/20 04:30 97.4 F L 52 L 18 120/61 97 05/26/20 21:16 97.9 F 65 18 134/80 98 05/26/20 20:57 98.1 F 68 18 124/61 98 05/26/20 19:10 68 18 124/61 98 05/26/20 19:06 75 18 117/86 97 05/26/20 18:12 76 18 123/73 98 05/26/20 17:27 98.1 F 105 H 18 147/72 98 Intake and Output 05/26/20 05/27/20 05/27/20 22:59 06:59 14:59 Intake Total 80.492 Balance 80.492 Intake: Intake, IV Titration 80.492 Amount Heparin Sod,Pork in 0.45% 80.492 NaCl 25,000 unit In 0.45 % NaCl 1 250ml.bag @ 9.38 UNITS/KG/HR 9.999 mls/hr IV .Q24H [facility] Rx#: [id number] Other: Voiding Method Toilet Toilet Toilet # Voids 1 2 Weight 106.594 kg Head normocephalic Neck supple Lungs clear to auscultation bilaterally no wheezing or crackles Heart regular rate and rhythm S1-S2, no rub or gallop Abdomen is soft nontender nondistended positive bowel sounds no hepatosplenomegaly Extremities no edema Neuro alert and orientated to 3 Results CBC & Chem 7: 05/26/20 17:44 05/26/20 17:44 Labs: Abnormal Lab Results - Last 24 Hours (Table) 05/26/20 05/27/20 05/27/20 Range/Units 17:44 03:14 03:14 APTT 31.7 H (22.0-30.0) sec Glucose 119 H (74-99) mg/dL Triglycerides 166 H (<150) mg/dL LDL Cholesterol, Calc 109 H (0-99) mg/dL Thrombosis Risk Factor Assmnt - Choose All That Apply Any of the Below Risk Factors Present?: Yes Each Factor Represents 1 point: Obesity (BMI >25) Other Risk Factors: No Each Risk Factor Represents 3 Points: Age 75 years or older Other congenital or acquired thrombophilia - If yes, enter type in comment: No Thrombosis Risk Factor Assessment Total Risk Factor Score: 4 Thrombosis Risk Factor Assessment Level: Moderate Risk Assessment and Plan Assessment: 1. Chest pain. Troponins negative 3. Chest x-ray negative. Patient was evaluated by cardiology services. Further workup at this time will follow-up outpatient 2. History of GERD. 3. History of essential hypertension 4. Daily alcohol use 1-2 beers daily 5. Ex-smoker Time with Patient: Greater than 30 (Greater than 60% of the total time spent in counseling and coordination of care)
--- NOTE | 2020-05-27 11:42 | P.DS ---
Providers Date of admission: 05/26/20 20:11 Expected date of discharge: 05/27/20 Attending physician: Andres Brown Consults: 05/26/20 20:07 Consult Physician Urgent Consulting Provider: Sanjay Kauffman Consult Reason/Comments: chest pain Do you want consulting provider notified?: Yes, Notify in am Primary care physician: Andres Brown [facility] Course: Discharge diagnosis 1. Chest pain. Troponins negative 3. Chest x-ray negative. Patient was evaluated by cardiology services. Further workup at this time will follow-up outpatient 2. History of GERD. 3. History of essential hypertension 4. Daily alcohol use 1-2 beers daily 5. Ex-smoker Chest x-ray negative. D-dimer negative. Troponins negative 3 Hospital course This is a 75-year-old male patient who presents to the ER with complaints of chest pain. Patient reports he was moving fridge with son restarted to express chest pain that lasted 2-3 hours with shortness of breath. She did state that it radiated to back. Patient took 3 nitros without relief. Patient does have past medical history of chest pain, essential hypertension, hyperlipidemia and d aily alcohol use. Troponins negative 3. Chest x-ray completed showing normal chest. No change. Cardiology services have been consulted. Patient was initially started on heparin but heparin has been DC'd. Labs unremarkable. D- dimer within normal limits 0.33. At this time patient denies any chest pain. Patient denies shortness breath. Patient denies cough. Denies nausea vomiting or diarrhea. Patient denies any urinary burning or frequency. Patient has been cleared by cardiology services. Chest pain has resolved. Patient will follow up with cardiology services outpatient for further workup Patient Condition at Discharge: Stable Plan - Discharge Summary Discharge Rx Participant: No New Discharge Prescriptions: Continue Fenofibrate Nanocrystallized [Tricor] 145 mg PO DAILY #30 tablet Tamsulosin [Flomax] 0.4 mg PO DAILY Baclofen 10 mg PO HS Aspirin [Adult Low Dose Aspirin EC] 81 mg PO DAILY Ergocalciferol (Vitamin D2) [Vitamin D2] 50,000 unit PO WE Pantoprazole [Protonix] 40 mg PO DAILY Isosorbide Mononitrate ER [Imdur] 30 mg PO DAILY HYDROcodone/APAP 10-325MG [[place] 10-325] 2 tab PO HS Metoprolol Tartrate [Lopressor] 25 mg PO BID tab Nitroglycerin Sl Tabs [Nitrostat] 0.4 mg SUBLINGUAL Q5M PRN tab PRN Reason: Chest Pain Dicyclomine [Bentyl] 20 mg PO QID PRN PRN Reason: IBS HYDROcodone/APAP 10-325MG [[place] 10-325] 1 tab PO DAILY PRN PRN Reason: Pain Discharge Medication List Fenofibrate Nanocrystallized [Tricor] 145 mg PO DAILY #30 tablet 08/05/15 [Rx] Tamsulosin [Flomax] 0.4 mg PO DAILY 06/27/16 [History] Aspirin [Adult Low Dose Aspirin EC] 81 mg PO DAILY 10/24/18 [History] Baclofen 10 mg PO HS 10/24/18 [History] Ergocalciferol (Vitamin D2) [Vitamin D2] 50,000 unit PO WE 10/24/18 [History] Pantoprazole [Protonix] 40 mg PO DAILY 02/25/19 [History] HYDROcodone/APAP 10-325MG [[place] 10-325] 2 tab PO HS 03/24/20 [History] Isosorbide Mononitrate ER [Imdur] 30 mg PO DAILY 03/24/20 [History] Metoprolol Tartrate [Lopressor] 25 mg PO BID tab 03/25/20 [Rx] Nitroglycerin Sl Tabs [Nitrostat] 0.4 mg SUBLINGUAL Q5M PRN tab 03/25/20 [Rx] Dicyclomine [Bentyl] 20 mg PO QID PRN 05/26/20 [History] HYDROcodone/APAP 10-325MG [[place] 10-325] 1 tab PO DAILY PRN 05/26/20 [History] Follow up Appointment(s)/Referral(s): Sanjay Kauffman MD [STAFF PHYSICIAN] - 2 Weeks Andres Brown MD [Primary Care Provider] - 1-2 days
[2020-05-28] MEDS ORDERED: ASPIRIN 81 MG PO SCH (09:00)
[2020-06-01] MEDS ORDERED: ERGOCALCIFEROL 50,000 UNIT CAP PO SCH (09:00)
== END 2020-05-27 12:52 | disposition home or self-care (01) ==
LOC: EC 17:22 → 3NCARDOBS 20:11
PROVIDERS: ADMIT Internal Medicine; ATTEND Internal Medicine
DX: R07.89 Other chest pain (principal); R10.9 Unspecified abdominal pain; R06.02 Shortness of breath; R07.2 Precordial pain; I25.10 Atherosclerotic heart disease of native coronary artery without angina pectoris; K21.9 Gastro-esophageal reflux disease without esophagitis; E78.5 Hyperlipidemia, unspecified; I10 Essential (primary) hypertension; M54.9 Dorsalgia, unspecified; J45.909 Unspecified asthma, uncomplicated; Z79.899 Other long term (current) drug therapy; Z79.82 Long term (current) use of aspirin; Z79.891 Long term (current) use of opiate analgesic; Z91.018 Allergy to other foods; Z90.49 Acquired absence of other specified parts of digestive tract; Z87.891 Personal history of nicotine dependence; E66.9 Obesity, unspecified; Z68.33 Body mass index [BMI] 33.0-33.9, adult
CPT/HCPCS: 93005 ×2; 96376 ×2; 96365; 99291; 36415; 85379; 83880; 80061; 80053; 82550; 83735; 84484 ×2; 85025; 85610; 85730 ×2; 71046; G0378 ×2; J1644 ×3

== ENCOUNTER 2020-08-03 12:30 | Inpatient (IN) | payer MEDICARE ==
[2020-08-03] MEDS ORDERED: DEXAMETHASONE SOD PHOSPHATE 4 MG/ML 1 ML VIAL IV STA (13:31)
[2020-08-03 13:45] LABS: HGB 12.6 gm/dL (13.0-17.5); MCH 30.5 pg (25.0-35.0); MCHC 33.1 g/dL (31.0-37.0); Mean Platelet Volume 9.1; Platelet Count 159 k/uL (150-450); RBC 4.13 m/uL (4.30-5.90); WBC 3.2 k/uL (3.8-10.6)
--- NOTE | 2020-08-03 13:50 | ED ---
SOB HPI - General Source: patient Mode of arrival: wheelchair Limitations: no limitations <Christine Bonilla - Last Filed: 08/03/20 14:02> <Flavio Sharma - Last Filed: 08/03/20 15:39> - General Chief Complaint: Shortness of Breath Stated Complaint: +Covid, SOB Time Seen by Provider: 08/03/20 13:17 - History of Present Illness Initial Comments: 75-year-old male presenting today for chief complaint of covert positive for shortness of breath and occasional chest pain. Patient states that on Saturday before he left [employer] he began to feel a general sense of being unwell he had chills he had slight nausea. Patient states he stated home from [facility] he states he believes he had a fever. Patient had a covert test on Saturday which returned positive. Patient states he has had some slight shortness of breath and occasional chest pain he states it is pressure like and worsening with deep inspiration. patient dneies hemoptysis, leg swelling, denies known stents in the heart or CAD, patient denies jaw or arm pain, denies crushign substernal chest pain or back pain. patient admits to cough. denies vomiting, occasional nausea. denies abdominal pain. pt denies additional complaints. upon arrival patient ap pears well nontoxic in no acute distress. (Christine Bonilla) - Related Data Home Medications Medication Instructions Recorded Confirmed Tamsulosin [Flomax] 0.4 mg PO DAILY 06/27/16 05/26/20 Aspirin [Adult Low Dose Aspirin EC] 81 mg PO DAILY 10/24/18 05/26/20 Baclofen 10 mg PO HS 10/24/18 05/26/20 Ergocalciferol (Vitamin D2) 50,000 unit PO WE 10/24/18 05/26/20 [Vitamin D2] Pantoprazole [Protonix] 40 mg PO DAILY 02/25/19 05/26/20 HYDROcodone/APAP 10-325MG [[place] 2 tab PO HS 03/24/20 05/26/20 10-325] Isosorbide Mononitrate ER [Imdur] 30 mg PO DAILY 03/24/20 05/26/20 Dicyclomine [Bentyl] 20 mg PO QID PRN 11/12/20 11/12/20 HYDROcodone/APAP 10-325MG [[place] 1 tab PO DAILY PRN 05/26/20 05/26/20 10-325] Previous Rx's Medication Instructions Recorded Fenofibrate Nanocrystallized 145 mg PO DAILY #30 tablet 08/05/15 [Tricor] Metoprolol Tartrate [Lopressor] 25 mg PO BID tab 03/25/20 Nitroglycerin Sl Tabs [Nitrostat] 0.4 mg SUBLINGUAL Q5M PRN tab 03/25/20 Allergies Allergy/AdvReac Type Severity Reaction Status Date / Time yeast, dried [yeast] Allergy "PER Verified 08/03/20 12:43 ALLERGY TEST" Review of Systems ROS Other: All systems not noted in ROS Statement are negative. <Christine Bonilla - Last Filed: 08/03/20 14:02> ROS Other: All systems not noted in ROS Statement are negative. <Flavio Sharma - Last Filed: 08/03/20 15:39> ROS Statement: Those systems with pertinent positive or pertinent negative responses have been documented in the HPI. Past Medical History Past Medical History: Chest Pain / Angina, GERD/Reflux, Hyperlipidemia, Hypertension Additional Past Medical History / Comment(s): asthmatic bronchitis, occasional chest pain-following with Dr. Kauffman., Back Pain., SOB. History of Any Multi-Drug Resistant Organisms: None Reported Past Surgical History: Cholecystectomy, Heart Catheterization Additional Past Surgical History / Comment(s): thyroid biopsy x2, heart cath x3 in past no stents - per pt. Past Anesthesia/Blood Transfusion Reactions: No Reported Reaction Past Psychological History: No Psychological Hx Reported Smoking Status: Former smoker Past Alcohol Use History: Daily Past Drug Use History: None Reported - Past Family History Father Family Medical History: No Reported History Mother Family Medical History: No Reported History <Christine Bonilla - Last Filed: 08/03/20 14:02> General Exam Limitations: no limitations <Christine Bonilla - Last Filed: 08/03/20 14:02> - General Exam Comments Initial Comments: General: The patient is awake and alert, in no distress Eye: +3 mm pupils are equal, round and reactive to light, extra-ocular movements are intact. No nystagmus. There is normal conjunctiva bilaterally. No signs of icterus. Ears, nose, mouth and throat: There are moist mucous membranes and no oral lesions. Neck: The neck is supple, there is no tenderness or JVD. Cardiovascular: There is a regular rate and rhythm. No murmur, rub or gallop is appreciated. Respiratory: Lungs are clear to auscultation, respirations are non-labored, breath sounds are equal. No wheezes, stridor, rales, or rhonchi. Gastrointestinal: Soft, non-distended, non-tender abdomen without masses or organomegaly noted. There is no rebound or guarding present. Musculoskeletal: Normal ROM, no tenderness. Strength 5/5. Sensation intact. Radial pulses equal bilaterally 2+. Neurological: A&O x 3. CN II-XII intact grossly, There are no obvious motor or sensory deficits. Coordination appears grossly intact. Speech is normal. Skin: Skin is warm and dry and no rashes or lesions are noted. No LE edema. Psychiatric: Cooperative, appropriate mood & affect, normal judgment. (Christine Bonilla) Course <Christine Bonilla - Last Filed: 08/03/20 14:02> Vital Signs 08/03/20 12:41 Temperature 98.5 F Pulse Rate 61 Respiratory 20 Rate Blood Pressure 116/62 O2 Sat by Pulse 97 Oximetry - Reevaluation(s) Reevaluation #1: signed out to attending Dr. Sharma 08/03/20 14:02 (Christine Bonilla) Medical Decision Making - Lab Data Result diagrams: 08/03/20 13:31 <Christine Bonilla - Last Filed: 08/03/20 14:02> - Lab Data Result diagrams: 08/03/20 13:31 08/03/20 13:31 <Flavio Sharma - Last Filed: 08/03/20 15:39> - Medical Decision Making EKG shows a sinus arrhythmia at 59 bpm with occasional PACs ND interval 142 QRS is 76 QT intervals 422 QTC is 417. EKG shows no ST segment elevation or depression. I did review the EKG with Dr. Cassidy and he agreed that this was not a [place] 2 type block. Chest x-ray shows a new no infiltrate in the right base. I spoke with Dr. Brown he agreed to admit the patient admitted the patient I consult pulmonary and I repeated cardiac enzymes. (Flavio Sharma) - Lab Data Lab Results 08/03/20 08/03/20 08/03/20 Range/Units 13:31 13:31 13:31 WBC 3.2 L (3.8-10.6) k/uL RBC 4.13 L (4.30-5.90) m/uL Hgb 12.6 L (13.0-17.5) gm/dL Hct 38.0 L (39.0-53.0) % MCV 92.0 (80.0-100.0) fL MCH 30.5 (25.0-35.0) pg MCHC 33.1 (31.0-37.0) g/dL RDW 13.0 (11.5-15.5) % Plt Count 159 (150-450) k/uL MPV 9.1 Neutrophils % (Manual) 67 % Band Neuts % (Manual) 3 % Lymphocytes % (Manual) 22 % Monocytes % (Manual) 8 % Neutrophils # (Manual) 2.20 (1.3-7.7) k/uL Lymphocytes # (Manual) 0.70 L (1.0-4.8) k/uL Monocytes # (Manual) 0.26 (0-1.0) k/uL Nucleated RBCs 0 (0-0) /100 WBC Manual Slide Review Performed RBC Morphology Normal PT 10.5 (9.0-12.0) sec INR 1.0 (<1.2) APTT 27.2 (22.0-30.0) sec D-Dimer 0.36 (<0.60) mg/L FEU Sodium 135 L (137-145) mmol/L Potassium 4.4 (3.5-5.1) mmol/L Chloride 105 (98-107) mmol/L Carbon Dioxide 22 (22-30) mmol/L Anion Gap 8 mmol/L BUN 17 (9-20) mg/dL Creatinine 1.06 (0.66-1.25) mg/dL Est GFR (CKD-EPI)AfAm 80 (>60 ml/min/1.73 sqM) Est GFR (CKD-EPI)NonAf 69 (>60 ml/min/1.73 sqM) Glucose 115 H (74-99) mg/dL Plasma Lactic Acid Wallace (0.7-2.0) mmol/L Calcium 8.5 (8.4-10.2) mg/dL Magnesium 1.6 (1.6-2.3) mg/dL Total Bilirubin 0.7 (0.2-1.3) mg/dL AST 36 (17-59) U/L ALT 23 (4-49) U/L Alkaline Phosphatase 90 (38-126) U/L Lactate Dehydrogenase 566 (313-618) U/L Troponin I (0.000-0.034) ng/mL C-Reactive Protein 27.4 H (<10.0) mg/L Total Protein 6.8 (6.3-8.2) g/dL Albumin 3.9 (3.5-5.0) g/dL 08/03/20 08/03/20 Range/Units 13:31 13:31 WBC (3.8-10.6) k/uL RBC (4.30-5.90) m/uL Hgb (13.0-17.5) gm/dL Hct (39.0-53.0) % MCV (80.0-100.0) fL MCH (25.0-35.0) pg MCHC (31.0-37.0) g/dL RDW (11.5-15.5) % Plt Count (150-450) k/uL MPV Neutrophils % (Manual) % Band Neuts % (Manual) % Lymphocytes % (Manual) % Monocytes % (Manual) % Neutrophils # (Manual) (1.3-7.7) k/uL Lymphocytes # (Manual) (1.0-4.8) k/uL Monocytes # (Manual) (0-1.0) k/uL Nucleated RBCs (0-0) /100 WBC Manual Slide Review RBC Morphology PT (9.0-12.0) sec INR (<1.2) APTT (22.0-30.0) sec D-Dimer (<0.60) mg/L FEU Sodium (137-145) mmol/L Potassium (3.5-5.1) mmol/L Chloride (98-107) mmol/L Carbon Dioxide (22-30) mmol/L Anion Gap mmol/L BUN (9-20) mg/dL Creatinine (0.66-1.25) mg/dL Est GFR (CKD-EPI)AfAm (>60 ml/min/1.73 sqM) Est GFR (CKD-EPI)NonAf (>60 ml/min/1.73 sqM) Glucose (74-99) mg/dL Plasma Lactic Acid Wallace 0.9 (0.7-2.0) mmol/L Calcium (8.4-10.2) mg/dL Magnesium (1.6-2.3) mg/dL Total Bilirubin (0.2-1.3) mg/dL AST (17-59) U/L ALT (4-49) U/L Alkaline Phosphatase (38-126) U/L Lactate Dehydrogenase (313-618) U/L Troponin I <0.012 (0.000-0.034) ng/mL C-Reactive Protein (<10.0) mg/L Total Protein (6.3-8.2) g/dL Albumin (3.5-5.0) g/dL Disposition <Christine Bonilla - Last Filed: 08/03/20 14:02> Time of Disposition: 15:39 <Flavio Sharma - Last Filed: 08/03/20 15:39> Clinical Impression: Chest pain, Pneumonia due to COVID-19 virus Disposition: ADMITTED IP TO THIS HOSP Referrals: Andres Brown MD [Primary Care Provider] - 1-2 days
[2020-08-03 14:00] LABS: D-Dimer 0.36 mg/L FEU (<0.60); Partial Thromboplastin Time 27.2 sec (22.0-30.0); Prothrombin Time 10.5 sec (9.0-12.0)
[2020-08-03 14:04] LABS: Albumin 3.9 g/dL (3.5-5.0); C Reactive Protein 27.4 mg/L (<10.0); Calcium 8.5 mg/dL (8.4-10.2); Magnesium 1.6 mg/dL (1.6-2.3); Potassium 4.4 mmol/L (3.5-5.1); Total Bilirubin 0.7 mg/dL (0.2-1.3); Total Protein 6.8 g/dL (6.3-8.2)
[2020-08-03 14:19] LABS: Band Neutrophils % 3 %; Monocytes # (M) 0.26 k/uL (0-1.0); Neutrophils % (M) 67 %; Nucleated Red Blood Cells 0 /100 WBC (0-0); Total Cells Counted 100
--- NOTE | 2020-08-03 14:28 | XR ---
EXAMINATION TYPE: XR chest 1V portable DATE OF EXAM: 08/03/2020 COMPARISON: Chest x-ray May 26, 2020 HISTORY: Covid 19 positive with worsening shortness of breath. TECHNIQUE: Single AP portable frontal upright view of the chest is obtained. FINDINGS: There is chronic parenchymal changes with new patchy lateral right basilar opacity. Slight ly elevated left hemidiaphragm. The cardiac silhouette size is upper limits of normal and slightly mo re prominent. The osseous structures are intact. IMPRESSION: New lateral right basilar acute infiltrate.
[2020-08-03] MEDS ORDERED: SODIUM CHLORIDE 0.9% 1,000 ML IV ONE (15:40)
[2020-08-03] MEDS ORDERED: NITROGLYCERIN SL TABS 0.4 MG TAB SUBLINGUAL PRN (20:24)
[2020-08-03] MEDS ORDERED: ERGOCALCIFEROL 1,250 MCG (50,000 IU) CAPSULE PO SCH (20:30)
[2020-08-03 20:50] LABS: Ferritin 911.4 ng/mL (22.0-322.0)
[2020-08-03] MEDS: HYDROcodone/APAP 10-325MG 1 EACH TAB PO SCH (20:57)
[2020-08-03] MEDS: BACLOFEN 10 MG TAB PO SCH (20:58)
[2020-08-03] MEDS: ENOXAPARIN 40 MG/0.4 ML SYRINGE SQ SCH (20:58)
[2020-08-03] MEDS: METOPROLOL TARTRATE 25 MG TAB PO SCH (20:58)
[2020-08-04] MEDS: DEXAMETHASONE SOD PHOSPHATE 10 MG/ML 1 ML VIAL IV SCH (07:45)
[2020-08-04] MEDS: ASPIRIN 81 MG PO SCH (07:47)
[2020-08-04] MEDS: HYDROcodone/APAP 10-325MG 1 EACH TAB PO SCH ×3 (07:47→20:19)
[2020-08-04] MEDS: FENOFIBRATE 160 MG TAB PO SCH (07:47)
[2020-08-04] MEDS: ISOSORBIDE MONONITRATE ER 30 MG TAB.ER.24H PO SCH (07:47)
[2020-08-04] MEDS: PANTOPRAZOLE 40 MG TABLET PO SCH (07:48)
[2020-08-04] MEDS: METOPROLOL TARTRATE 25 MG TAB PO SCH ×2 (07:48→20:19)
[2020-08-04] MEDS ORDERED: dexAMETHasone 2 MG TAB PO SCH (09:00)
--- NOTE | 2020-08-04 10:27 | P.HPIM ---
History of Present Illness H&P Date: 08/04/20 Trevon Rocha, is a 75-year-old male, who presented to [facility] emergency room with worsening shortness of breath and cough, patient was seen one day earlier in our office and had a Covid 19 PCR testing that was positive, he was evaluated in emergency room, vital examination on presentation reveals a temperature of 98.5 pulse 61 respiration 20 blood pressure 116/62 pulse ox 94% on room air, chest x-ray revealed evidence of right lower lobe pneumonia he was started on IV Decadron and subcu Lovenox and was admitted to medical floor pulmonary consultation was requested. Patient has a known history of hypertension, hyperlipidemia, mild obstructive coronary artery disease, history of benign prostatic hypertrophy, history of osteoarthritis and degenerative disc disease history of gastroesophageal reflux disease and history of COPD, patient stated that his younger brother recently of Covid 19 pneumonia. On review of systems there is no fever or chills no headache or dizziness no chest pain no palpitation no nausea or vomiting no abdominal pain no diarrhea no blood in the stools no burning with urination no frequency or urgency and no hematuria. Past Medical History Past Medical History: Chest Pain / Angina, GERD/Reflux, Hyperlipidemia, Hypertension Additional Past Medical History / Comment(s): Pt states he tested covid + on 08/02/[address] Brown's office. Other hx: Occasional chest pain, diverticular disease, frequent urination, asthmatic bronchitis, SOB with exertion, chronic mid back pain, bone chip R elbow, numbness/tingling bilateral legs. History of Any Multi-Drug Resistant Organisms: None Reported Past Surgical History: Cholecystectomy, Heart Catheterization Additional Past Surgical History / Comment(s): thyroid biopsy x2, heart cath x3 in past no stents - per pt, EGD, colonoscopies, R hand sting injury with surgery, metal debris removed from eyes, facial laceration repair. Past Anesthesia/Blood Transfusion Reactions: No Reported Reaction Smoking Status: Former smoker - Past Family History Father Family Medical History: No Reported History Additional Family Medical History / Comment(s): Father was healthy and lived to be 95 yrs. old Mother Family Medical History: No Reported History Additional Family Medical History / Comment(s): Mother at the age of 86 following a hip fracture. Medications and Allergies Home Medications Medication Instructions Recorded Confirmed Type Fenofibrate Nanocrystallized 145 mg PO DAILY #30 tablet 08/05/15 08/03/20 Rx [Tricor] Tamsulosin [Flomax] 0.4 mg PO DAILY 06/27/16 08/03/20 History Aspirin [Adult Low Dose Aspirin EC] 81 mg PO DAILY 10/24/18 08/03/20 History Baclofen 10 mg PO HS 10/24/18 08/03/20 History Ergocalciferol (Vitamin D2) 50,000 unit PO WE 10/24/18 08/03/20 History [Vitamin D2] Pantoprazole [Protonix] 40 mg PO DAILY 02/25/19 08/03/20 History Isosorbide Mononitrate ER [Imdur] 30 mg PO DAILY 03/24/20 08/03/20 History Metoprolol Tartrate [Lopressor] 25 mg PO BID tab 03/25/20 08/03/20 Rx Nitroglycerin Sl Tabs [Nitrostat] 0.4 mg SUBLINGUAL Q5M PRN tab 03/25/20 08/03/20 Rx Dicyclomine [Bentyl] 20 mg PO QID PRN 05/26/20 08/03/20 History HYDROcodone/APAP 10-325MG [[place] 1 tab PO TID 05/26/20 08/03/20 History 10-325] Albuterol Inhaler [Ventolin Hfa 2 puff INHALATION RT-Q4H PRN 08/03/20 08/03/20 History Inhaler] Allergies Allergy/AdvReac Type Severity Reaction Status Date / Time yeast, dried [yeast] Allergy "PER Verified 08/03/20 15:47 ALLERGY TEST" Physical Exam Vitals: Vital Signs Temp Pulse Pulse Resp BP BP Pulse Ox 08/04/20 06:05 98.0 F 63 17 152/83 95 08/04/20 02:05 97.9 F 69 17 186/78 95 08/03/20 20:55 97.6 F 64 16 135/72 95 08/03/20 20:53 135/72 08/03/20 17:09 98.3 F 68 17 147/75 94 L 08/03/20 16:37 88 16 156/76 96 08/03/20 12:41 98.5 F 61 20 116/62 97 Intake and Output 08/03/20 08/04/20 08/04/20 22:59 06:59 14:59 Output Total 2 Balance -2 Output: Urine 2 Other: Voiding Method Toilet # Voids 3 Weight 111.13 kg In general patient is alert and oriented 3 in no apparent distress HEENT head normocephalic and atraumatic Neck is supple no JVD no goiter no lymphadenopathy Chest exam reveals a few scattered rhonchi no wheezing Cardiac exam reveals regular heart sounds S1 and S2 no gallops no murmurs Abdomen is soft nontender no organomegaly was normal bowel sounds Extremity exam reveals no edema no cyanosis or clubbing Neurological examination reveals no gross focal deficits Results CBC & Chem 7: 08/03/20 13:31 08/03/20 13:31 Labs: Abnormal Lab Results - Last 24 Hours (Table) 08/03/20 08/03/20 Range/Units 13:31 13:31 WBC 3.2 L (3.8-10.6) k/uL RBC 4.13 L (4.30-5.90) m/uL Hgb 12.6 L (13.0-17.5) gm/dL Hct 38.0 L (39.0-53.0) % Lymphocytes # (Manual) 0.70 L (1.0-4.8) k/uL Sodium 135 L (137-145) mmol/L Glucose 115 H (74-99) mg/dL Ferritin 911.4 H (22.0-322.0) ng/mL C-Reactive Protein 27.4 H (<10.0) mg/L Thrombosis Risk Factor Assmnt - Choose All That Apply Any of the Below Risk Factors Present?: Yes Each Factor Represents 1 point: Obesity (BMI >25), Serious lung disease incl. pneumonia (< 1month) Other Risk Factors: Yes Each Risk Factor Represents 3 Points: Age 75 years or older Other congenital or acquired thrombophilia - If yes, enter type in comment: No Thrombosis Risk Factor Assessment Total Risk Factor Score: 5 Thrombosis Risk Factor Assessment Level: High Risk Assessment and Plan Plan: 1. Right lower lobe pneumonia, with positive PCR testing for Covid 19 2. Underlying history of COPD 3. Underlying history of hypertension 4. Underlying history of hyperlipidemia 5. Underlying history of benign prostatic hypertrophy 6. Underlying history of osteoarthritis with degenerative disc disease with chronic pain maintained on [place] At this time patient is admitted to medical floor He was started on IV Decadron and subcu Lovenox Pulmonary consultation was requested Home medications reviewed and reordered Will follow closely
--- NOTE | 2020-08-04 11:33 | P.CNPUL ---
History of Present Illness Consult date: 08/04/20 Reason for consult: dyspnea, cough Chief complaint: COVID History of present illness: 75-year-old male patient with known history of mild asthmatic bronchitis maintained on Ventolin outpatient basis. The patient felt sick approximately a week ago. He was feeling weak and tired and some slight chills. He went to his primary care physician's office and the covert testing that was done on 08/02/2020 was positive. The patient was hospitalized yesterday because of some increased cough and shortness of breath. His pulse ox on room is on 95%. His current inflammation markers show a CRP of 27, LDH of 5-66, and the rest of the electrodes are all within normal limits. Liver function tests are normal. Pro-calcitonin level is at 0.09. His d-dimer is at 0.36. Aggressive the coagulation profile is within normal limits. Review of Systems Constitutional: Reports chills, Reports fatigue, Reports fever, Reports weakness Eyes: denies as per HPI, denies blurred vision, denies bulging eye, denies decreased vision, denies diplopia, denies discharge, denies dry eye, denies irritation, denies itching, denies pain, denies photophobia, denies loss of pe ripheral vision, denies loss of vision, denies tunnel vision/blind spots Ears: deny: decreased hearing, ear discharge, earache, tinnitus Ears, nose, mouth and throat: Reports as per HPI Breasts: absent: as per HPI, gynecomastia Cardiovascular: Reports dyspnea on exertion Respiratory: Reports cough, Reports dyspnea Gastrointestinal: Reports as per HPI Genitourinary: Reports as per HPI Musculoskeletal: Reports as per HPI Musculoskeletal: absent: ankle pain, ankle stiffness, ankle swelling Integumentary: Reports as per HPI Neurological: Reports as per HPI Psychiatric: Reports as per HPI Endocrine: Reports as per HPI Hematologic/Lymphatic: Reports as per HPI Allergic/Immunologic: Reports as per HPI Past Medical History Past Medical History: Chest Pain / Angina, GERD/Reflux, Hyperlipidemia, Hypertension Additional Past Medical History / Comment(s): Pt states he tested covid + on 08/02/[address] Brown's office. Other hx: Occasional chest pain, dive rticular disease, frequent urination, asthmatic bronchitis, SOB with exertion, chronic mid back pain, bone chip R elbow, numbness/tingling bilateral legs. History of Any Multi-Drug Resistant Organisms: None Reported Past Surgical History: Cholecystectomy, Heart Catheterization Additional Past Surgical History / Comment(s): thyroid biopsy x2, heart cath x3 in past no stents - per pt, EGD, colonoscopies, R hand sting injury with surgery, metal debris removed from eyes, facial laceration repair. Past Anesthesia/Blood Transfusion Reactions: No Reported Reaction Smoking Status: Former smoker - Past Family History Father Family Medical History: No Reported History Additional Family Medical History / Comment(s): Father was healthy and lived to be 95 yrs. old Mother Family Medical History: No Reported History Additional Family Medical History / Comment(s): Mother at the age of 86 following a hip fracture. Medications and Allergies Home Medications Medication Instructions Recorded Confirmed Type Fenofibrate Nanocrystallized 145 mg PO DAILY #30 tablet 08/05/15 08/03/20 Rx [Tricor] Tamsulosin [Flomax] 0.4 mg PO DAILY 06/27/16 08/03/20 History Aspirin [Adult Low Dose Aspirin EC] 81 mg PO DAILY 10/24/18 08/03/20 History Baclofen 10 mg PO HS 10/24/18 08/03/20 History Ergocalciferol (Vitamin D2) 50,000 unit PO WE 10/24/18 08/03/20 History [Vitamin D2] Pantoprazole [Protonix] 40 mg PO DAILY 02/25/19 08/03/20 History Isosorbide Mononitrate ER [Imdur] 30 mg PO DAILY 03/24/20 08/03/20 History Metoprolol Tartrate [Lopressor] 25 mg PO BID tab 03/25/20 08/03/20 Rx Nitroglycerin Sl Tabs [Nitrostat] 0.4 mg SUBLINGUAL Q5M PRN tab 03/25/20 08/03/20 Rx Dicyclomine [Bentyl] 20 mg PO QID PRN 05/26/20 08/03/20 History HYDROcodone/APAP 10-325MG [[place] 1 tab PO TID 05/26/20 08/03/20 History 10-325] Albuterol Inhaler [Ventolin Hfa 2 puff INHALATION RT-Q4H PRN 08/03/20 08/03/20 History Inhaler] Allergies Allergy/AdvReac Type Severity Reaction Status Date / Time yeast, dried [yeast] Allergy "PER Verified 08/03/20 15:47 ALLERGY TEST" Physical Exam Vitals: Vital Signs Temp Pulse Pulse Resp BP BP Pulse Ox 08/04/20 09:18 97.7 F 57 L 18 146/81 96 08/04/20 07:48 63 17 08/04/20 06:05 98.0 F 63 17 152/83 95 08/04/20 02:05 97.9 F 69 17 186/78 95 08/03/20 20:55 97.6 F 64 16 135/72 95 08/03/20 20:53 135/72 08/03/20 17:09 98.3 F 68 17 147/75 94 L 08/03/20 16:37 88 16 156/76 96 08/03/20 12:41 98.5 F 61 20 116/62 97 Intake and Output 08/03/20 08/04/20 08/04/20 22:59 06:59 14:59 Output Total 2 Balance -2 Output: Urine 2 Other: Voiding Method Toilet Toilet # Voids 3 Weight 111.13 kg Results - Laboratory Findings CBC and BMP: 08/03/20 13:31 08/03/20 13:31 PT/INR, D-dimer PT 10.5 sec (9.0-12.0) 08/03/20 13:31 INR 1.0 (<1.2) 08/03/20 13:31 D-Dimer 0.36 mg/L FEU (<0.60) 08/03/20 13:31 Abnormal lab findings: Abnormal Labs 08/03/20 08/03/20 13:31 13:31 WBC 3.2 L RBC 4.13 L Hgb 12.6 L Hct 38.0 L Lymphocytes # (Manual) 0.70 L Sodium 135 L Glucose 115 H Ferritin 911.4 H C-Reactive Protein 27.4 H - Diagnostic Findings Chest x-ray: image reviewed Assessment and Plan Plan: 1 Acute covid19 related infection with secondary constitutional symptoms 2 shortness of breath and cough secondary to above. The patient is unable to maintain a pulse ox of 95% on room air oxygen. May be some basilar inf iltrates/perihilar, minimal at this stage with low-level inflammatory markers and low d-dimer. 3 chronic asthmatic bronchitis currently inactive in stable 4. Underlying history of hyperlipidemia 5. Underlying history of benign prostatic hypertrophy 6. Underlying history of osteoarthritis with degenerative disc disease with chronic pain maintained on [place] 7 hypertension Plan we'll tx this patient with Decadron 6 mg by mouth daily in combination with a vitamin C vitamin D and zinc and melatonin and Pepcid. No need for Remdesivir . Monitor the chest x-ray. Monitor the inflammatory markers. Monitor the oxygenation. We'll continue to follow.
--- NOTE | 2020-08-04 13:19 | P.CRDCN ---
History of Present Illness History of present illness: HISTORY OF PRESENTING ILLNESS This is a pleasant 75-year-old male past medical history significant for hypertension, dyslipidemia, GERD, asthma, former nicotine dependence and daily alcohol intake. He follows in the office with Dr. Kauffman. We have been asked to see in consultation for chest pain. He states he started feeling sick, tired and coughing on Saturday. He had an outpatient COVID test that was found to be positive on Saturday. He states he was sent here on advice of his PCP. He feels like his breathing is mildly labored but stable and the same as it was on Saturday. He has intermittent chest pains that are chronic and ongoing of unclear etiology. He had a normal catheterization in the past x3 and normal nuclear stress test 02/2019. He denies palpitations or dizziness. He is feeling frustrated and would rather be home treating his COVID. DIAGNOSTICS EKG reveals sinus mechanism with sinus arrhythmia. Telemetry tracings indicate sinus rhythm with a short episode of sinus tachycardia. Chest xray reveals a new lateral right basilar infiltrate. Laboratory reviewed, WBC 3.2, hgb 12.6, plt 159, d-dimer 0.36, sodium 135, potassium 4.4, creatinine 1.06, magnesium 1.6, cardiac enzymes negative x2 and procalcitonin 0.09. Current cardiac medications include lopressor 25 mg BID, imdur 30 mg daily, fenofibrate 145 mg daily and aspirin 81 mg daily. Most recent echocardiogram obtained in March 2020 reveals preserved LV systolic function ejection fraction 60-65%. REVIEW OF SYSTEMS At the time of my exam: CONSTITUTIONAL: Denies fever or chills. CARDIOVASCULAR: Denies chest pain, shortness of breath, orthopnea, PND or palpitations. RESPIRATORY: Denies cough. GASTROINTESTINAL: Denies abdominal pain, diarrhea, constipation, nausea or vomiting. MUSCULOSKELETAL: Denies myalgias. NEUROLOGIC: Denies numbness, tingling, headacbe or weakness. ENDOCRINE: Denies fatigue, weight change, polydipsia or polyurina. GENITOURINARY: Denies burning, hematuria or urgency with micturation. HEMATOLOGIC: Denies history of anemia or bleeding. PHYSICAL EXAMINATION Blood pressure 146/81 heart rate 57 afebrile and maintaining oxygen saturation on room air. CONSTITUTIONAL: No apparent distress. HEENT: Head is normocephalic. Pupils are equal, round. Sclerae anicteric. Mucous membranes of the mouth are moist. No JVD. No carotid bruit. CHEST EXAMINATION: Lungs are clear to auscultation. No chest wall tenderness is noted on palpation or with deep breathing. HEART EXAMINATION: Regular rate and rhythm. S1, S2 heard. No murmurs, gallops or rub. ABDOMEN: Soft, nontender. Positive bowel sounds. EXTREMITIES: 2+ peripheral pulses, no lower extremity edema and no calf tend erness. NEUROLOGIC EXAMINATION: Patient is awake, alert and oriented x3. ASSESSMENT Covid 19 Pneumonia Chest pain, atypical for angina Hypertension Dyslipidemia Asthma PLAN An acute coronary event has been ruled out. Pain is atypical for angina and chronic with no underlying coronary artery dise ase. No further cardiac work up at this time. Ongoing treatment for COVID 19. Follow up in the office with Dr. Kauffman upon discharge. Thank you kindly for this consultation. Nurse Practitioner note has been reviewed, I agree with a documented findings and plan of care. Patient was seen and examined. Past Medical History Past Medical History: Chest Pain / Angina, GERD/Reflux, Hyperlipidemia, Hypertension Additional Past Medical History / Comment(s): Pt states he tested covid + on 08/02/[address] Brown's office. Other hx: Occasional chest pain, diverticular disease, frequent urination, asthmatic bronchitis, SOB with exertion, chronic mid back pain, bone chip R elbow, numbness/tingling bilateral legs. History of Any Multi-Drug Resistant Organisms: None Reported Past Surgical History: Cholecystectomy, Heart Catheterization Additional Past Surgical History / Comment(s): thyroid biopsy x2, heart cath x3 in past no stents - per pt, EGD, colonoscopies, R hand sting injury with surgery, metal debris removed from eyes, facial laceration repair. Past Anesthesia/Blood Transfusion Reactions: No Reported Reaction Smoking Status: Former smoker - Past Family History Father Family Medical History: No Reported History Additional Family Medical History / Comment(s): Father was healthy and lived to be 95 yrs. old Mother Family Medical History: No Reported History Additional Family Medical History / Comment(s): Mother at the age of 86 following a hip fracture. Medications and Allergies Home Medications Medication Instructions Recorded Confirmed Type Fenofibrate Nanocrystallized 145 mg PO DAILY #30 tablet 08/05/15 08/03/20 Rx [Tricor] Tamsulosin [Flomax] 0.4 mg PO DAILY 06/27/16 08/03/20 History Aspirin [Adult Low Dose Aspirin EC] 81 mg PO DAILY 10/24/18 08/03/20 History Baclofen 10 mg PO HS 10/24/18 08/03/20 History Ergocalciferol (Vitamin D2) 50,000 unit PO WE 10/24/18 08/03/20 History [Vitamin D2] Pantoprazole [Protonix] 40 mg PO DAILY 02/25/19 08/03/20 History Isosorbide Mononitrate ER [Imdur] 30 mg PO DAILY 03/24/20 08/03/20 History Metoprolol Tartrate [Lopressor] 25 mg PO BID tab 03/25/20 08/03/20 Rx Nitroglycerin Sl Tabs [Nitrostat] 0.4 mg SUBLINGUAL Q5M PRN tab 03/25/20 08/03/20 Rx Dicyclomine [Bentyl] 20 mg PO QID PRN 05/26/20 08/03/20 History HYDROcodone/APAP 10-325MG [[place] 1 tab PO TID 05/26/20 08/03/20 History 10-325] Albuterol Inhaler [Ventolin Hfa 2 puff INHALATION RT-Q4H PRN 08/03/20 08/03/20 History Inhaler] Allergies Allergy/AdvReac Type Severity Reaction Status Date / Time yeast, dried [yeast] Allergy "PER Verified 08/03/20 15:47 ALLERGY TEST" Physical Exam Vitals: Vital Signs Temp Pulse Pulse Resp BP BP Pulse Ox 08/04/20 09:18 97.7 F 57 L 18 146/81 96 08/04/20 07:48 63 17 08/04/20 06:05 98.0 F 63 17 152/83 95 08/04/20 02:05 97.9 F 69 17 186/78 95 08/03/20 20:55 97.6 F 64 16 135/72 95 08/03/20 20:53 135/72 08/03/20 17:09 98.3 F 68 17 147/75 94 L 08/03/20 16:37 88 16 156/76 96 Intake and Output 08/03/20 08/04/20 08/04/20 22:59 06:59 14:59 Output Total 2 Balance -2 Output: Urine 2 Other: Voiding Method Toilet Toilet # Voids 3 Weight 111.13 kg Results 08/03/20 13:31 08/03/20 13:31 Cardiac Enzymes 08/03/20 08/03/20 08/03/20 Range/Units 13:31 13:31 23:00 AST 36 (17-59) U/L Lactate Dehydrogenase 566 (313-618) U/L Troponin I <0.012 <0.012 (0.000-0.034) ng/mL Coagulation 08/03/20 Range/Units 13:31 PT 10.5 (9.0-12.0) sec APTT 27.2 (22.0-30.0) sec CBC 08/03/20 Range/Units 13:31 WBC 3.2 L (3.8-10.6) k/uL RBC 4.13 L (4.30-5.90) m/uL Hgb 12.6 L (13.0-17.5) gm/dL Hct 38.0 L (39.0-53.0) % Plt Count 159 (150-450) k/uL Comprehensive Metabolic Panel 08/03/20 Range/Units 13:31 Sodium 135 L (137-145) mmol/L Potassium 4.4 (3.5-5.1) mmol/L Chloride 105 (98-107) mmol/L Carbon Dioxide 22 (22-30) mmol/L BUN 17 (9-20) mg/dL Creatinine 1.06 (0.66-1.25) mg/dL Glucose 115 H (74-99) mg/dL Calcium 8.5 (8.4-10.2) mg/dL AST 36 (17-59) U/L ALT 23 (4-49) U/L Alkaline Phosphatase 90 (38-126) U/L Total Protein 6.8 (6.3-8.2) g/dL Albumin 3.9 (3.5-5.0) g/dL Current Medications Generic Name Dose Route Start Last Admin Trade Name Freq PRN Reason Stop Dose Admin Hydrocodone Bitart/Acetaminophen 1 each 08/03/20 22:00 08/04/20 07:47 Hydrocodone/Apap 10-325mg 1 Each Tab PO 1 each TID RENNY Administration Albuterol Sulfate 2 puff 08/03/20 20:24 Albuterol Hfa Inhaler INHALATION RT-Q4H PRN Shortness Of Breath Aspirin 81 mg 08/04/20 09:00 08/04/20 07:47 Aspirin 81 Mg PO 81 mg DAILY RENNY Administration Baclofen 10 mg 08/03/20 21:00 08/03/20 20:58 Baclofen 10 Mg Tab PO 10 mg HS [facility] Administration Dexamethasone Sodium Phosphate 6 mg 08/04/20 09:00 08/04/20 07:45 Dexamethasone Sod Phosphate 10 Mg/Ml 1 Ml Vial IV 6 mg DAILY RENNY Administration Dicyclomine HCl 20 mg 08/03/20 20:24 Dicyclomine 20 Mg Tab PO QID PRN IBS Enoxaparin Sodium 40 mg 08/03/20 20:30 08/03/20 20:58 Enoxaparin 40 Mg/0.4 Ml Syringe SQ 40 mg Q24H RENNY Administration Ergocalciferol 1,250 mcg 08/03/20 20:30 08/03/20 20:58 Ergocalciferol 1,250 Mcg (50,000 Iu) Capsule PO 1,250 mcg We@0900 [facility] Administration Fenofibrate 160 mg 08/04/20 09:00 08/04/20 07:47 Fenofibrate 160 Mg Tab PO 160 mg DAILY [facility] Administration Isosorbide Mononitrate 30 mg 08/04/20 09:00 08/04/20 07:47 Isosorbide Mononitrate Er 30 Mg Tab.Er.24h PO 30 mg DAILY [facility] Administration Melatonin 5 mg 08/04/20 21:00 Melatonin 5 Mg Tablet PO HS [facility] Metoprolol Tartrate 25 mg 08/03/20 21:00 08/04/20 07:48 Metoprolol Tartrate 25 Mg Tab PO 25 mg BID [facility] Administration Nitroglycerin 0.4 mg 08/03/20 20:24 Nitroglycerin Sl Tabs 0.4 Mg Tab SUBLINGUAL Q5M PRN Chest Pain Pantoprazole Sodium 40 mg 08/04/20 07:30 08/04/20 07:48 Pantoprazole 40 Mg Tablet PO 40 mg DAILY@0730 [facility] Administration Intake and Output 08/03/20 08/04/20 08/04/20 22:59 06:59 14:59 Output Total 2 Balance -2 Output: Urine 2 Other: Voiding Method Toilet Toilet # Voids 3 Weight 111.13 kg 08/03/20 13:31 08/03/20 13:31
[2020-08-04] MEDS: ALBUTEROL HFA INHALER INHALATION PRN ×2 (16:07→21:22)
[2020-08-04] MEDS: ENOXAPARIN 40 MG/0.4 ML SYRINGE SQ SCH (20:16)
[2020-08-04] MEDS: MELATONIN 5 MG TABLET PO SCH (20:19)
[2020-08-04] MEDS: BACLOFEN 10 MG TAB PO SCH (20:19)
[2020-08-05] MEDS: ISOSORBIDE MONONITRATE ER 30 MG TAB.ER.24H PO SCH (07:40)
[2020-08-05] MEDS: ASPIRIN 81 MG PO SCH (07:40)
[2020-08-05] MEDS: FENOFIBRATE 160 MG TAB PO SCH (07:41)
[2020-08-05] MEDS: PANTOPRAZOLE 40 MG TABLET PO SCH (07:41)
[2020-08-05] MEDS: HYDROcodone/APAP 10-325MG 1 EACH TAB PO SCH ×3 (07:41→22:23)
[2020-08-05] MEDS: DEXAMETHASONE SOD PHOSPHATE 10 MG/ML 1 ML VIAL IV SCH (07:41)
[2020-08-05] MEDS: METOPROLOL TARTRATE 25 MG TAB PO SCH ×2 (07:41→22:23)
--- NOTE | 2020-08-05 08:49 | XR ---
EXAMINATION TYPE: XR chest 1V portable DATE OF EXAM: 08/05/2020 COMPARISON: Chest x-ray 08/03/2020 HISTORY: Shortness of breath, Covid TECHNIQUE: Single frontal view of the chest is obtained. FINDINGS: Patchy basilar density is noted. No evident pneumothorax or pleural effusion. Cardiac medi astinal silhouette is stable. There are overlying leads. IMPRESSION: Correlate for pneumonia, follow-up as indicated
[2020-08-05 10:46] LABS: C Reactive Protein 0.6 mg/dL (0.0-0.8)
--- NOTE | 2020-08-05 13:36 | P.PN ---
Subjective Progress Note Date: 08/05/20 Principal diagnosis: Dyspnea, cough, COVID19 75-year-old male patient with known history of mild asthmatic bronchitis maintained on Ventolin outpatient basis. The patient felt sick approximately a week ago. He was feeling weak and tired and some slight chills. He went to his primary care physician's office and the covert testing that was done on 08/02/2020 was positive. The patient was hospitalized yesterday because of some increased cough and shortness of breath. His pulse ox on room is on 95%. His current inflammation markers show a CRP of 27, LDH of 5-66, and the rest of the electrodes are all within normal limits. Liver function tests are normal. Pro-calcitonin level is at 0.09. His d-dimer is at 0.36. Prophylactic anticoagulation started in the form of Lovenox 40 mg every 24 hours On 08/05/2020 patient seen in follow-up on medical floor, he is awake and alert, breathing comfortably, he is currently on room air, pulse ox is 95%, vital signs are stable, he has had no fever or chills, no worsening dyspnea, today's chest x-ray showed patchy basilar density. Today's labs have been reviewed, d-dimer is 0.24, LDH is 2:30, CRP is 0.6. Pro-calcitonin 0.09. She remains on IV Decadron 6 mg daily, Coumadin dose of Lovenox is 40 mg daily. Patient has had no acute events overnight. Objective - Vital Signs Vital signs: Vital Signs Temp 98.7 F 08/05/20 09:05 Pulse 55 L 08/05/20 09:05 Resp 18 08/05/20 09:05 BP 108/61 08/05/20 09:05 Pulse Ox 95 08/05/20 09:05 Intake & Output 08/04/20 08/05/20 08/05/20 18:59 06:59 18:59 Other: Voiding Method Toilet Toilet Toilet # Voids 2 2 # Bowel Movements 1 - Exam GENERAL EXAM: Alert, very pleasant, 75-year-old male on room air, pulse ox of 95% comfortable in no apparent distress. HEAD: Normocephalic/atraumatic. EYES: Normal reaction of pupils, equal size. Conjunctiva pink, sclera white. NOSE: Clear with pink turbinates. THROAT: No erythema or exudates. NECK: No masses, no JVD, no thyroid enlargement, no adenopathy. CHEST: No chest wall deformity. Symmetrical expansion. LUNGS: Equal air entry with no crackles, wheeze, rhonchi or dullness. CVS: Regular rate and rhythm, normal S1 and S2, no gallops, no murmurs, no rubs ABDOMEN: Soft, nontender. No hepatosplenomegaly, normal bowel sounds, no guarding or rigidity. EXTREMITIES: No clubbing, no edema, no cyanosis, 2+ pulses and upper and lower extremities. MUSCULOSKELETAL: Muscle strength and tone normal. SPINE: No scoliosis or deformity SKIN: No rashes CENTRAL NERVOUS SYSTEM: Alert and oriented -3. No focal deficits, tone is normal in all 4 extremities. PSYCHIATRIC: Alert and oriented -3. Appropriate affect. Intact judgment and insight. - Labs CBC & Chem 7: 08/03/20 13:31 08/03/20 13:31 Assessment and Plan Plan: Assessment: 1 Acute covid19 related infection with secondary constitutional symptoms 2 shortness of breath and cough secondary to above. The patient is unable to maintain a pulse ox of 95% on room air oxygen. May be some basilar infiltrates/perihilar, minimal at this stage with low-level inflammatory markers and low d-dimer. 3 chronic asthmatic bronchitis currently inactive in stable 4. Underlying history of hyperlipidemia 5. Underlying history of benign prostatic hypertrophy 6. Underlying history of osteoarthritis with degenerative disc disease with chronic pain maintained on [place] 7 hypertension Plan: Continue with Decadron, continue prophylactic dose of Lovenox, inflammatory markers are improving, pro-calcitonin is negative, d-dimer is low 0.24, vital signs are stable, we'll continue to follow, patient may possibly be considered for discharge home if cleared by medicine and cardiology I performed a history & physical examination of the patient and discussed their management with my nurse practitioner, Sheree Pate. I reviewed the nurse practitioner's note and agree with the documented findings and plan of care. Lung sounds are positive for minimal crackles The findings and the impression was discussed with the patient. I attest to the documentation by the nurse practitioner. Time with Patient: Less than 30
--- NOTE | 2020-08-05 15:30 | P.PN ---
Subjective Progress Note Date: 08/05/20 Trevon Rocha, is a 75-year-old male, who presented to [facility] emergency room with worsening shortness of breath and cough, patient was seen one day earlier in our office and had a Covid 19 PCR testing that was positive, he was evaluated in emergency room, vital examination on presentation reveals a temperature of 98.5 pulse 61 respiration 20 blood pressure 116/62 pulse ox 94% on room air, chest x-ray revealed evidence of right lower lobe pneumonia he was started on IV Decadron and subcu Lovenox and was admitted to medical floor pulmonary consultation was requested. Patient has a known history of hypertension, hyperlipidemia, mild obstructive coronary artery disease, history of benign prostatic hypertrophy, history of osteoarthritis and degenerative disc disease history of gastroesophageal reflux disease and history of COPD, patient stated that his younger brother recently of Covid 19 pneumonia. On review of systems there is no fever or chills no headache or dizziness no chest pain no palpitation no nausea or vomiting no abdominal pain no diarrhea no blood in the stools no burning with urination no frequency or urgency and no hematuria. On 08/05/2020 patient was seen and examined on the medical floor he is alert and oriented 3 in no apparent distress he is still complaining of cough and mild shortness of breath there is no fever or chills no headache or dizziness no chest pain no palpitation no nausea or vomiting no abdominal pain no diarrhea no blood in the stools no burning with urination no frequency or urgency and no hematuria Objective - Vital Signs Vital signs: Vital Signs Temp 98.1 F 08/05/20 05:35 Pulse 62 08/05/20 07:42 Resp 17 08/05/20 07:42 BP 131/79 08/05/20 05:35 Pulse Ox 96 08/05/20 05:35 Intake & Output 08/04/20 08/05/20 08/05/20 18:59 06:59 18:59 Other: Voiding Method Toilet Toilet Toilet # Voids 2 2 # Bowel Movements 1 - Exam In general patient is alert and oriented 3 in no apparent distress HEENT head normocephalic and atraumatic Neck is supple no JVD no goiter no lymphadenopathy Chest exam reveals a few scattered rhonchi no wheezing Cardiac exam reveals regular heart sounds S1 and S2 no gallops no murmurs Abdomen is soft nontender no organomegaly was normal bowel sounds Extremity exam reveals no edema no cyanosis or clubbing Neurological examination reveals no gross focal deficits - Labs CBC & Chem 7: 08/03/20 13:31 08/03/20 13:31 Assessment and Plan Plan: 1. Right lower lobe pneumonia, with positive PCR testing for Covid 19 2. Underlying history of COPD 3. Underlying history of hypertension 4. Underlying history of hyperlipidemia 5. Underlying history of benign prostatic hypertrophy 6. Underlying history of osteoarthritis with degenerative disc disease with c hronic pain maintained on [place] At this time patient is admitted to medical floor He was started on IV Decadron and subcu Lovenox Pulmonary consultation was requested Home medications reviewed and reordered Will follow closely
[2020-08-05] MEDS: ENOXAPARIN 40 MG/0.4 ML SYRINGE SQ SCH (22:23)
[2020-08-05] MEDS: BACLOFEN 10 MG TAB PO SCH (22:23)
[2020-08-05] MEDS: MELATONIN 5 MG TABLET PO SCH (22:23)
[2020-08-06] MEDS: ACETAMINOPHEN TAB 325 MG TAB PO PRN (05:07)
[2020-08-06] MEDS: ONDANSETRON 4 MG/2 ML VIAL IVP PRN (05:07)
[2020-08-06 06:53] LABS: Basophils % (A) 1 %; Eosinophils % (A) 0 %; HCT 37.7 % (39.0-53.0); HGB 12.9 gm/dL (13.0-17.5); Lymphocytes # (A) 1.2 k/uL (1.0-4.8); Lymphocytes % (A) 24 %; MCH 31.2 pg (25.0-35.0); MCHC 34.1 g/dL (31.0-37.0); MCV 91.6 fL (80.0-100.0); Mean Platelet Volume 9.3; Monocytes # (A) 0.3 k/uL (0-1.0); Monocytes % (A) 6 %; Neutrophils # (A) 3.4 k/uL (1.3-7.7); Neutrophils % (A) 68 %; Platelet Count 175 k/uL (150-450); RBC 4.11 m/uL (4.30-5.90); RDW 12.3 % (11.5-15.5)
[2020-08-06] MEDS: HYDROcodone/APAP 10-325MG 1 EACH TAB PO SCH ×3 (08:33→20:16)
[2020-08-06] MEDS: ASPIRIN 81 MG PO SCH (08:34)
[2020-08-06] MEDS: METOPROLOL TARTRATE 25 MG TAB PO SCH ×2 (08:34→20:16)
[2020-08-06] MEDS: ISOSORBIDE MONONITRATE ER 30 MG TAB.ER.24H PO SCH (08:34)
[2020-08-06] MEDS: DICYCLOMINE 20 MG TAB PO PRN ×2 (08:34→15:53)
[2020-08-06] MEDS: PANTOPRAZOLE 40 MG TABLET PO SCH (08:34)
[2020-08-06] MEDS: FENOFIBRATE 160 MG TAB PO SCH (08:34)
[2020-08-06] MEDS: DEXAMETHASONE SOD PHOSPHATE 10 MG/ML 1 ML VIAL IV SCH (08:35)
[2020-08-06 09:38] LABS: African American GFR (CKD) 75.7 (60.0-200.0); Albumin 4.5 g/dL (3.80-4.90); Albumin/Globulin Ratio 2.37 (1.60-3.17); Anion Gap 7.6 mmol/L (4.00-12.00); Carbon Dioxide 26.4 mmol/L (21.6-31.8); Globulin 1.9 g/dL (1.6-3.3); Non-African American GFR(CKD) 65.3 (60.0-200.0); Total Bilirubin 0.7 mg/dL (0.3-1.2); Total Protein 6.4 g/dL (6.2-8.2)
--- NOTE | 2020-08-06 09:40 | P.PN ---
Subjective Progress Note Date: 08/06/20 Trevon Rocha, is a 75-year-old male, who presented to [facility] emergency room with worsening shortness of breath and cough, patient was seen one day earlier in our office and had a Covid 19 PCR testing that was positive, he was evaluated in emergency room, vital examination on presentation reveals a temperature of 98.5 pulse 61 respiration 20 blood pressure 116/62 pulse ox 94% on room air, chest x-ray revealed evidence of right lower lobe pneumonia he was started on IV Decadron and subcu Lovenox and was admitted to medical floor pulmonary consultation was requested. Patient has a known history of hypertension, hyperlipidemia, mild obstructive coronary artery disease, history of benign prostatic hypertrophy, history of osteoarthritis and degenerative disc disease history of gastroesophageal reflux disease and history of COPD, patient stated that his younger brother recently of Covid 19 pneumonia. On review of systems there is no fever or chills no headache or dizziness no chest pain no palpitation no nausea or vomiting no abdominal pain no diarrhea no blood in the stools no burning with urination no frequency or urgency and no hematuria. On 08/05/2020 patient was seen and examined on the medical floor he is alert and oriented 3 in no apparent distress he is still complaining of cough and mild shortness of breath there is no fever or chills no headache or dizziness no chest pain no palpitation, no nausea or vomiting no abdominal pain no diarrhea no blood in the stools no burning with urination no frequency or urgency and no hematuria. On 08/06/2020 patient was seen and examined on the medical floor he is alert and oriented 3 through the night he had episodes of severe abdominal pain with nausea and vomiting he is still complaining of cough and shortness of breath otherwise he denies any complaints there is no fever or chills no headache or di zziness no chest pain no palpitation and no urinary symptoms at this time will check amylase and lipase and check computed tomography scan of the abdomen and pelvis will follow closely Objective - Vital Signs Vital signs: Vital Signs Temp 98.4 F 08/06/20 05:30 Pulse 61 08/06/20 05:30 Resp 18 08/06/20 05:30 BP 155/77 08/06/20 05:30 Pulse Ox 95 08/06/20 05:30 Intake & Output 08/05/20 08/06/20 08/06/20 18:59 06:59 18:59 Intake Total 500 Balance 500 Intake: Oral 500 Other: Voiding Method Toilet # Voids 3 1 - Exam In general patient is alert and oriented 3 in no apparent distress HEENT head normocephalic and atraumatic Neck is supple no JVD no goiter no lymphadenopathy Chest exam reveals a few scattered rhonchi no wheezing Cardiac exam reveals regular heart sounds S1 and S2 no gallops no murmurs Abdomen is soft, with generalized tenderness , mostly in the periumbilical area no hepatomegaly no splenomegaly bowel sounds are slightly hyperactive Extremity exam reveals no edema no cyanosis or clubbing Neurological examination reveals no gross focal deficits - Labs CBC & Chem 7: 08/06/20 06:40 08/03/20 13:31 Labs: Abnormal Lab Results - Last 24 Hours (Table) 08/06/20 Range/Units 06:40 RBC 4.11 L (4.30-5.90) m/uL Hgb 12.9 L (13.0-17.5) gm/dL Hct 37.7 L (39.0-53.0) % Assessment and Plan Plan: 1. Right lower lobe pneumonia, with positive PCR testing for Covid 19 2. Underlying history of COPD 3. Underlying history of hypertension 4. Underlying history of hyperlipidemia 5. Underlying history of benign prostatic hypertrophy 6. Underlying history of osteoarthritis with degenerative disc disease with chronic pain maintained on [place] 7. Abdominal pain was nausea and vomiting last night at this time will obtain computed tomography scan of the abdomen and pelvis with check amylase and lipase will follow closely At this time patient is admitted to medical floor He was started on IV Decadron and subcu Lovenox Pulmonary consultation was requested Home medications reviewed and reordered Will follow closely
[2020-08-06] MEDS: IOPAMIDOL CONTRAST (ORAL USE) VIAL PO PRN ×2 (10:03→11:08)
--- NOTE | 2020-08-06 11:04 | P.PN ---
Subjective Progress Note Date: 08/06/20 The patient is seen today 08/06/20. No pulmonary complaints. On room air. Remains with abdominal discomfort and generalized aches and pains. White count 5.0. Hemoglobin 12.9. Objective - Vital Signs Vital signs: Vital Signs Temp 98.6 F 08/06/20 10:00 Pulse 54 L 08/06/20 10:00 Resp 17 08/06/20 10:00 BP 110/57 08/06/20 10:00 Pulse Ox 94 L 08/06/20 10:00 Intake & Output 08/05/20 08/06/20 08/06/20 18:59 06:59 18:59 Intake Total 500 Balance 500 Intake: Oral 500 Other: Voiding Method Toilet # Voids 3 1 - Constitutional General appearance: Present: obese - EENT Eyes: Present: EOMI, PERRLA ENT: Present: hard of hearing - Neck Neck: Present: normal ROM Carotids: bilateral: upstroke normal Thyroid: bilateral: normal size - Respiratory Respiratory: bilateral: CTA, diminished - Cardiovascular Rhythm: regular Heart sounds: normal: S1, S2 - Gastrointestinal General gastrointestinal: Present: distended, normal bowel sounds, tenderness Localized gastrointestinal: tender: diffuse - Integumentary Integumentary: Present: normal turgor - Neurologic Neurologic: Present: CNII-XII intact - Musculoskeletal Musculoskeletal: Present: generalized weakness - Psychiatric Psychiatric: Present: A&O x's 3 - Labs CBC & Chem 7: 08/06/20 06:40 08/06/20 06:02 Labs: Abnormal Lab Results - Last 24 Hours (Table) 08/06/20 08/06/20 Range/Units 06:02 06:40 RBC 4.11 L (4.30-5.90) m/uL Hgb 12.9 L (13.0-17.5) gm/dL Hct 37.7 L (39.0-53.0) % AST 66 H (14-35) U/L ALT 57 H (10-49) U/L Assessment and Plan Assessment: 1 Acute covid19 related infection with secondary constitutional symptoms 2 shortness of breath and cough secondary to above. The patient is unable to maintain a pulse ox of 95% on room air oxygen. May be some basilar infiltrates/perihilar, minimal at this stage with low-level inflammatory markers and low d-dimer. 3 chronic asthmatic bronchitis currently inactive in stable 4. Underlying history of hyperlipidemia 5. Underlying history of benign prostatic hypertrophy 6. Underlying history of osteoarthritis with degenerative disc disease with chronic pain maintained on [place] 7 hypertension Plan: The patient was seen and evaluated by Dr. Kristopher Umana from the pulmonary standpoint On room air Still will generalized abdominal pain, myalgias CT abdomaen and pelvis pending We will see as needed I, the cosigning physician performed a history and physical on the patient. Lungs clear. On room air. I discussed the assesment and plan of care with Sapna Gil DNP. I attest to the note as dictated by her.
[2020-08-06 12:24] LABS: Amylase 75 U/L (30-110); Lipase 183 U/L (23-300)
--- NOTE | 2020-08-06 13:32 | CT ---
EXAMINATION TYPE: CT abdomen pelvis w con DATE OF EXAM: 08/06/2020 COMPARISON: 07/09/2017 INDICATION: abdominal pain, vomiting, Covid positive DLP: 1720.9 mGycm, Automated exposure control for dose reduction was used. CONTRAST: 100 mL of Isovue 300. Study performed with Oral Contrast TECHNIQUE: Axial images were obtained from above the diaphragm to the pubic rami in the axial plane a t 5 mm thick sections. Reconstructed images are reviewed on the computer in the coronal plane. FINDINGS: Limited CT sections are obtained the lung bases. Are patchy peripheral infiltrates which can be comp atible with atypical pneumonia.. CT ABDOMEN: Liver: Normal Spleen: Normal Pancreas: Normal Adrenal glands: The adrenal glands are normal. Gallbladder: Normal Kidneys: No masses are evident. No hydronephrosis is present. No cysts are present. No renal stone s are evident. Aorta: Vascular calcification is within the aorta. Inferior vena cava: Normal. CT PELVIS: Loops of bowel within the abdomen and pelvis are normal. There are loops of bowel which are incom pletely distended or lack oral contrast limiting their evaluation. Appendix: Normal as visualized. Urinary bladder: No suspicious filling defects are evident. There is some nonspecific minimal low den sity adjacent to the urinary bladder wall anteriorly. Correlate for cystitis. Genitourinary structures: Prostate is prominent Osseous structures: No suspicious lytic or sclerotic lesions. Degenerative changes at the bilateral h ips. Degenerative disc changes are through the lumbar spine Fat-containing inguinal hernias are not excluded. IMPRESSIONS: 1. Clinical consideration for cystitis is recommended. 2. Mild diverticulosis without acute diverticulitis. 3. Peripheral nonspecific infiltrate can be compatible with atypical pneumonia.
[2020-08-06] MEDS: ENOXAPARIN 40 MG/0.4 ML SYRINGE SQ SCH (20:16)
[2020-08-06] MEDS: MELATONIN 5 MG TABLET PO SCH (20:16)
[2020-08-06] MEDS: BACLOFEN 10 MG TAB PO SCH (20:16)
[2020-08-07] MEDS: ACETAMINOPHEN TAB 325 MG TAB PO PRN (04:10)
[2020-08-07] MEDS: DICYCLOMINE 20 MG TAB PO PRN (04:54)
[2020-08-07 06:48] LABS: Basophils % (A) 1 %; Eosinophils % (A) 0 %; HCT 38.1 % (39.0-53.0); Lymphocytes % (A) 16 %; MCH 31.1 pg (25.0-35.0); MCHC 34.1 g/dL (31.0-37.0); Mean Platelet Volume 9.1; Monocytes # (A) 0.4 k/uL (0-1.0); Monocytes % (A) 6 %; Neutrophils # (A) 4.8 k/uL (1.3-7.7); Neutrophils % (A) 76 %; Platelet Count 210 k/uL (150-450); RBC 4.19 m/uL (4.30-5.90); RDW 12.3 % (11.5-15.5); WBC 6.3 k/uL (3.8-10.6)
[2020-08-07] MEDS: METOPROLOL TARTRATE 25 MG TAB PO SCH ×2 (08:09→20:34)
[2020-08-07] MEDS: ASPIRIN 81 MG PO SCH (08:09)
[2020-08-07] MEDS: PANTOPRAZOLE 40 MG TABLET PO SCH ×2 (08:09→08:18)
[2020-08-07] MEDS: ISOSORBIDE MONONITRATE ER 30 MG TAB.ER.24H PO SCH (08:10)
[2020-08-07] MEDS: FENOFIBRATE 160 MG TAB PO SCH (08:10)
[2020-08-07] MEDS: DEXAMETHASONE SOD PHOSPHATE 10 MG/ML 1 ML VIAL IV SCH (08:10)
[2020-08-07] MEDS: HYDROcodone/APAP 10-325MG 1 EACH TAB PO SCH ×3 (08:10→22:21)
[2020-08-07 09:02] LABS: African American GFR (CKD) 68.1 (60.0-200.0); Albumin 4.7 g/dL (3.80-4.90); Albumin/Globulin Ratio 2.35 (1.60-3.17); Anion Gap 2.5 mmol/L (4.00-12.00); BUN/Creat Ratio 19.17 Ratio (12.00-20.00); Carbon Dioxide 25.5 mmol/L (21.6-31.8); Non-African American GFR(CKD) 58.8 (60.0-200.0); Potassium 4.2 mmol/L (3.5-5.5); Total Bilirubin 0.8 mg/dL (0.3-1.2); Total Protein 6.7 g/dL (6.2-8.2)
[2020-08-07] MEDS: ALBUTEROL HFA INHALER INHALATION PRN ×4 (09:04→20:06)
--- NOTE | 2020-08-07 10:55 | P.PN ---
Subjective Progress Note Date: 08/07/20 The patient is seen today 08/06/20. No pulmonary complaints. On room air. Remains with abdominal discomfort and generalized aches and pains. White count 5.0. Hemoglobin 12.9. the patient is seen today 08/07/2020 in follow-up on the regular medical floor. He is currently awake and alert in no acute distress. He continues to maintain good O2 saturations in the 90s on room air.he continues to have generalized aches and pains and requesting pain medication frequently. Otherwise no nausea, vomiting or diarrhea. No loss of taste, or smell. He remains afebrile. Heart rate stable. White count 6.3. Hemoglobin 13.0. Sodium 136. Potassium 4.2. Creatinine 1.2. Amylase 75. Lipase 183. CAT scan of the abdomen and pelvis revealed possible cystitis. Mild diverticulosis without acute diverticulitis. Objective - Vital Signs Vital signs: Vital Signs Temp 98.2 F 08/07/20 10:00 Pulse 73 08/07/20 10:00 Resp 17 08/07/20 10:00 BP 98/57 08/07/20 10:00 Pulse Ox 94 L 08/07/20 10:00 Intake & Output 08/06/20 08/07/20 08/07/20 18:59 06:59 18:59 Other: Voiding Method Toilet Toilet Toilet # Voids 3 2 - Exam GENERAL EXAM: Alert, active, obese 75-year-old male patient, on room air,comfortable in no apparent distress. HEAD: Normocephalic. EYES: Normal reaction of pupils, equal size. NOSE: Clear with pink turbinates. THROAT: No erythema or exudates. NECK: No masses, no JVD. CHEST: No chest wall deformity. LUNGS: Equal air entry with no crackles, wheeze, rhonchi or dullness. CVS: S1 and S2 normal with no audible murmur, regular rhythm. ABDOMEN: No hepatosplenomegaly, normal bowel sounds, no guarding or rigidity. SPINE: No scoliosis or deformity SKIN: No rashes CENTRAL NERVOUS SYSTEM: No focal deficits, tone is normal in all 4 extremities. EXTREMITIES: There is no peripheral edema. No clubbing, no cyanosis. Peripheral pulses are intact. - Labs CBC & Chem 7: 08/07/20 06:05 08/07/20 06:05 Labs: Abnormal Lab Results - Last 24 Hours (Table) 08/07/20 08/07/20 Range/Units 06:05 06:05 RBC 4.19 L (4.30-5.90) m/uL Hct 38.1 L (39.0-53.0) % Anion Gap 2.50 L (4.00-12.00) mmol/L Est GFR (CKD-EPI)NonAf 58.8 L (60.0-200.0) AST 46 H (14-35) U/L ALT 55 H (10-49) U/L Assessment and Plan Assessment: 1 Acute covid19 related infection with secondary constitutional symptoms. No pulmonary complaints. On room air. 2 shortness of breath and cough secondary to above. The patient is unable to maintain a pulse ox of a 90% on room air oxygen. May be some basilar infiltrates/perihilar, minimal at this stage with low-level inflammatory markers and low d-dimer. 3 chronic asthmatic bronchitis currently inactive in stable 4. Underlying history of hyperlipidemia 5. Underlying history of benign prostatic hypertrophy 6. 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 Kristopher Umana from the pulmonary standpoint On room air CT abdomaen and pelvis reviewed We will see as needed I, the cosigning physician performed a history and physical on the patient. Lungs clear. On room air. I discussed the assesment and plan of care with Sapna Gli DNP. I attest to the above note as dictated by her.
--- NOTE | 2020-08-07 10:58 | P.GSCN ---
History of Present Illness Consult date: 08/07/20 Reason for Consult: Abdominal pain History of present illness: 75-year-old male came to the hospital because of shortness of breath. Patient w ith recent Covid positive results. Patient with history of chronic pain. Complaining of pain in the abdomen back back shoulders. Says his whole body hurts. Underwent CT abdomen and pelvis which did not show any definite abnormalities with the exception of mild cystitis. No nausea or vomiting. Tolerating diet. Requesting more pain medicine. Says he takes more pain medicine at home and they're providing here. Review of Systems The patient denies any acute changes in vision or hearing, no dysphagia or odynophagia, no chest pain no dysuria or hematuria, no headache, no runny nose, no rectal bleeding or melena, no unexplained weight loss Past Medical History Past Medical History: Chest Pain / Angina, GERD/Reflux, Hyperlipidemia, Hypertension Additional Past Medical History / Comment(s): Pt states he tested covid + on 08/02/[address] Brown's office. Other hx: Occasional chest pain, diver ticular disease, frequent urination, asthmatic bronchitis, SOB with exertion, chronic mid back pain, bone chip R elbow, numbness/tingling bilateral legs. History of Any Multi-Drug Resistant Organisms: None Reported Past Surgical History: Cholecystectomy, Heart Catheterization Additional Past Surgical History / Comment(s): thyroid biopsy x2, heart cath x3 in past no stents - per pt, EGD, colonoscopies, R hand sting injury with surgery, metal debris removed from eyes, facial laceration repair. Past Anesthesia/Blood Transfusion Reactions: No Reported Reaction Smoking Status: Former smoker - Past Family History Father Family Medical History: No Reported History Additional Family Medical History / Comment(s): Father was healthy and lived to be 95 yrs. old Mother Family Medical History: No Reported History Additional Family Medical History / Comment(s): Mother at the age of 86 following a hip fracture. Medications and Allergies Home Medications Medication Instructions Recorded Confirmed Type Fenofibrate Nanocrystallized 145 mg PO DAILY #30 tablet 08/05/15 08/03/20 Rx [Tricor] Tamsulosin [Flomax] 0.4 mg PO DAILY 06/27/16 08/03/20 History Aspirin [Adult Low Dose Aspirin EC] 81 mg PO DAILY 10/24/18 08/03/20 History Baclofen 10 mg PO HS 10/24/18 08/03/20 History Ergocalciferol (Vitamin D2) 50,000 unit PO WE 10/24/18 08/03/20 History [Vitamin D2] Pantoprazole [Protonix] 40 mg PO DAILY 02/25/19 08/03/20 History Isosorbide Mononitrate ER [Imdur] 30 mg PO DAILY 03/24/20 08/03/20 History Metoprolol Tartrate [Lopressor] 25 mg PO BID tab 03/25/20 08/03/20 Rx Nitroglycerin Sl Tabs [Nitrostat] 0.4 mg SUBLINGUAL Q5M PRN tab 03/25/20 08/03/20 Rx Dicyclomine [Bentyl] 20 mg PO QID PRN 05/26/20 08/03/20 History HYDROcodone/APAP 10-325MG [[place] 1 tab PO TID 05/26/20 08/03/20 History 10-325] Albuterol Inhaler [Ventolin Hfa 2 puff INHALATION RT-Q4H PRN 08/03/20 08/03/20 History Inhaler] Allergies Allergy/AdvReac Type Severity Reaction Status Date / Time yeast, dried [yeast] Allergy "PER Verified 08/03/20 15:47 ALLERGY TEST" Surgical - Exam Vital Signs Temp Pulse Resp BP Pulse Ox 98.5 F 61 20 116/62 97 08/03/20 12:41 08/03/20 12:41 08/03/20 12:41 08/03/20 12:41 08/03/20 12:41 Physical exam: General: Well-developed, well-nourished HEENT: Normocephalic, sclerae nonicteric Abdomen: Nontender, nondistended Extremities: No edema Neuro: Alert and oriented Results - Labs 08/07/20 06:05 08/07/20 06:05 Abnormal Lab Results - Last 24 Hours (Table) 08/07/20 08/07/20 Range/Units 06:05 06:05 RBC 4.19 L (4.30-5.90) m/uL Hct 38.1 L (39.0-53.0) % Anion Gap 2.50 L (4.00-12.00) mmol/L Est GFR (CKD-EPI)NonAf 58.8 L (60.0-200.0) AST 46 H (14-35) U/L ALT 55 H (10-49) U/L Diabetes panel 08/07/20 Range/Units 06:05 Sodium 136 (135-145) mmol/L Potassium 4.2 (3.5-5.5) mmol/L Chloride 108 (96-109) mmol/L Carbon Dioxide 25.5 (21.6-31.8) mmol/L BUN 23.0 (9.0-27.0) mg/dL Creatinine 1.2 (0.6-1.5) mg/dL Glucose 100 (70-110) mg/dL Calcium 9.0 (8.7-10.3) mg/dL AST 46 H (14-35) U/L ALT 55 H (10-49) U/L Alkaline Phosphatase 103 (41-126) U/L Total Protein 6.7 (6.2-8.2) g/dL Albumin 4.70 (3.80-4.90) g/dL Calcium panel 08/07/20 Range/Units 06:05 Calcium 9.0 (8.7-10.3) mg/dL Albumin 4.70 (3.80-4.90) g/dL Pituitary panel 08/07/20 Range/Units 06:05 Sodium 136 (135-145) mmol/L Potassium 4.2 (3.5-5.5) mmol/L Chloride 108 (96-109) mmol/L Carbon Dioxide 25.5 (21.6-31.8) mmol/L BUN 23.0 (9.0-27.0) mg/dL Creatinine 1.2 (0.6-1.5) mg/dL Glucose 100 (70-110) mg/dL Calcium 9.0 (8.7-10.3) mg/dL Adrenal panel 08/07/20 Range/Units 06:05 Sodium 136 (135-145) mmol/L Potassium 4.2 (3.5-5.5) mmol/L Chloride 108 (96-109) mmol/L Carbon Dioxide 25.5 (21.6-31.8) mmol/L BUN 23.0 (9.0-27.0) mg/dL Creatinine 1.2 (0.6-1.5) mg/dL Glucose 100 (70-110) mg/dL Calcium 9.0 (8.7-10.3) mg/dL Total Bilirubin 0.8 (0.3-1.2) mg/dL AST 46 H (14-35) U/L ALT 55 H (10-49) U/L Alkaline Phosphatase 103 (41-126) U/L Total Protein 6.7 (6.2-8.2) g/dL Albumin 4.70 (3.80-4.90) g/dL Assessment and Plan (1) Abdominal pain Narrative/Plan: 75-year-old male with complaints of diffuse pains. CAT scan abdomen and pelvis reviewed and appears fairly normal. No general surgery plans at this point. Continue diet. Current Visit: Yes Status: Acute Code(s): R10.9 - UNSPECIFIED ABDOMINAL PAIN SNOMED Code(s): 15308462
[2020-08-07] MEDS ORDERED: HYDROmorphone 0.5 MG/0.5 ML SYRINGE IVP PRN (11:18)
--- NOTE | 2020-08-07 11:21 | P.PN ---
Subjective Progress Note Date: 08/07/20 Trevon Rocha, is a 75-year-old male, who presented to [facility] emergency room with worsening shortness of breath and cough, patient was seen one day earlier in our office and had a Covid 19 PCR testing that was positive, he was evaluated in emergency room, vital examination on presentation reveals a temperature of 98.5 pulse 61 respiration 20 blood pressure 116/62 pulse ox 94% on room air, chest x-ray revealed evidence of right lower lobe pneumonia he was started on IV Decadron and subcu Lovenox and was admitted to medical floor pulmonary consultation was requested. Patient has a known history of hypertension, hyperlipidemia, mild obstructive coronary artery disease, history of benign prostatic hypertrophy, history of osteoarthritis and degenerative disc disease history of gastroesophageal reflux disease and history of COPD, patient stated that his younger brother recently of Covid 19 pneumonia. On review of systems there is no fever or chills no headache or dizziness no chest pain no palpitation no nausea or vomiting no abdominal pain no diarrhea no blood in the stools no burning with urination no frequency or urgency and no hematuria. On 08/05/2020 patient was seen and examined on the medical floor he is alert and oriented 3 in no apparent distress he is still complaining of cough and mild shortness of breath there is no fever or chills no headache or dizziness no chest pain no palpitation, no nausea or vomiting no abdominal pain no diarrhea no blood in the stools no burning with urination no frequency or urgency and no hematuria. On 08/06/2020 patient was seen and examined on the medical floor he is alert and oriented 3 through the night he had episodes of severe abdominal pain with nausea and vomiting he is still complaining of cough and shortness of breath otherwise he denies any complaints there is no fever or chills no headache or di zziness no chest pain no palpitation and no urinary symptoms at this time will check amylase and lipase and check computed tomography scan of the abdomen and pelvis will follow closely. On 08/07/2020 patient was seen and examined on the medical floor he is alert and oriented 3 in no apparent distress he is still complaining of abdominal pain no new episodes of nausea or vomiting he has shortness of breath with any activity he has cough otherwise he denies any complaints there is no fever or chills no headache or dizziness no chest pain no palpitation no nausea or vomiting no diarrhea no blood in the stools no burning with urination no frequency or urgency and no hematuria, computed tomography scan of the abdomen and pelvis was reviewed and it shows some abnormal shadow in the anterior wall of the bladder otherwise no significant abnormality on computed tomography scan, will obtain a urine analysis, patient is requesting increase in his pain medications, will recheck labs and follow in a.m. Objective - Vital Signs Vital signs: Vital Signs Temp 98.2 F 08/07/20 10:00 Pulse 73 08/07/20 10:00 Resp 17 08/07/20 10:00 BP 98/57 08/07/20 10:00 Pulse Ox 94 L 08/07/20 10:00 Intake & Output 08/06/20 08/07/20 08/07/20 18:59 06:59 18:59 Other: Voiding Method Toilet Toilet Toilet # Voids 3 2 - Exam In general patient is alert and oriented 3 in no apparent distress HEENT head normocephalic and atraumatic Neck is supple no JVD no goiter no lymphadenopathy Chest exam reveals a few scattered rhonchi no wheezing Cardiac exam reveals regular heart sounds S1 and S2 no gallops no murmurs Abdomen is soft, with generalized tenderness , mostly in the periumbilical area no hepatomegaly no splenomegaly bowel sounds are slightly hyperactive Extremity exam reveals no edema no cyanosis or clubbing Neurological examination reveals no gross focal deficits - Labs CBC & Chem 7: 08/07/20 06:05 08/07/20 06:05 Labs: Abnormal Lab Results - Last 24 Hours (Table) 08/07/20 08/07/20 Range/Units 06:05 06:05 RBC 4.19 L (4.30-5.90) m/uL Hct 38.1 L (39.0-53.0) % Anion Gap 2.50 L (4.00-12.00) mmol/L Est GFR (CKD-EPI)NonAf 58.8 L (60.0-200.0) AST 46 H (14-35) U/L ALT 55 H (10-49) U/L Assessment and Plan Plan: 1. Right lower lobe pneumonia, with positive PCR testing for Covid 19 2. Underlying history of COPD 3. Underlying history of hypertension 4. Underlying history of hyperlipidemia 5. Underlying history of benign prostatic hypertrophy 6. Underlying history of osteoarthritis with degenerative disc disease with chronic pain maintained on [place] 7. Abdominal pain was nausea and vomiting last night at this time will obtain computed tomography scan of the abdomen and pelvis with check amylase and lipase will follow closely, no significant abnormality on computed tomography scan amyl ase or lipase, will check urine analysis was [employer] with increased pain medications per patient's request will follow in a.m. At this time patient is admitted to medical floor He was started on IV Decadron and subcu Lovenox Pulmonary consultation was requested Home medications reviewed and reordered Will follow closely
[2020-08-07 14:37] LABS: Appearance,Urine Clear (Clear); Bilirubin,Urine Negative (Negative); Blood,Urine Negative (Negative); Color,Urine Yellow; Glucose,Urine (UA) Negative (Negative); Ketones,Urine Negative (Negative); Leukocyte Esterase,Urine Negative (Negative); Nitrite,Urine Negative (Negative); PH, Urine 5.5 (5.0-8.0); Protein,Urine Trace (Negative); Specific Gravity,Urine 1.024 (1.001-1.035)
[2020-08-07] MEDS: MELATONIN 5 MG TABLET PO SCH (20:34)
[2020-08-07] MEDS: BACLOFEN 10 MG TAB PO SCH (20:34)
[2020-08-07] MEDS: ENOXAPARIN 40 MG/0.4 ML SYRINGE SQ SCH (20:35)
[2020-08-08] MEDS: ONDANSETRON 4 MG/2 ML VIAL IVP PRN (05:06)
[2020-08-08 06:14] LABS: Basophils % (A) 0 %; Eosinophils % (A) 0 %; HCT 38.6 % (39.0-53.0); HGB 12.4 gm/dL (13.0-17.5); Lymphocytes # (A) 1.1 k/uL (1.0-4.8); Lymphocytes % (A) 16 %; MCH 29.3 pg (25.0-35.0); MCHC 32.1 g/dL (31.0-37.0); MCV 91.3 fL (80.0-100.0); Mean Platelet Volume 8.7; Monocytes # (A) 0.3 k/uL (0-1.0); Monocytes % (A) 5 %; Neutrophils # (A) 5.2 k/uL (1.3-7.7); Neutrophils % (A) 76 %; Platelet Count 237 k/uL (150-450); RBC 4.23 m/uL (4.30-5.90); RDW 12.7 % (11.5-15.5); WBC 6.9 k/uL (3.8-10.6)
[2020-08-08] MEDS: METOPROLOL TARTRATE 25 MG TAB PO SCH (08:24)
[2020-08-08] MEDS: ASPIRIN 81 MG PO SCH (08:29)
[2020-08-08] MEDS: FENOFIBRATE 160 MG TAB PO SCH (08:30)
[2020-08-08] MEDS: HYDROcodone/APAP 10-325MG 1 EACH TAB PO SCH (08:30)
[2020-08-08] MEDS: DEXAMETHASONE SOD PHOSPHATE 10 MG/ML 1 ML VIAL IV SCH (08:30)
[2020-08-08] MEDS: ISOSORBIDE MONONITRATE ER 30 MG TAB.ER.24H PO SCH (08:30)
[2020-08-08 09:10] LABS: Albumin 4.5 g/dL (3.80-4.90); Albumin/Globulin Ratio 2.25 (1.60-3.17); Anion Gap 9.1 mmol/L (4.00-12.00); Carbon Dioxide 27.9 mmol/L (21.6-31.8); Non-African American GFR(CKD) 73.3 (60.0-200.0); Potassium 4.6 mmol/L (3.5-5.5); Total Bilirubin 0.8 mg/dL (0.3-1.2); Total Protein 6.5 g/dL (6.2-8.2)
[2020-08-08] MEDS ORDERED: HYDROcodone/APAP 10-325MG 1 EACH TAB PO PRN (09:26)
--- NOTE | 2020-08-08 09:31 | P.PN ---
Subjective Progress Note Date: 08/08/20 Trevon Rocha, is a 75-year-old male, who presented to [facility] emergency room with worsening shortness of breath and cough, patient was seen one day earlier in our office and had a Covid 19 PCR testing that was positive, he was evaluated in emergency room, vital examination on presentation reveals a temperature of 98.5 pulse 61 respiration 20 blood pressure 116/62 pulse ox 94% on room air, chest x-ray revealed evidence of right lower lobe pneumonia he was started on IV Decadron and subcu Lovenox and was admitted to medical floor pulmonary consultation was requested. Patient has a known history of hypertension, hyperlipidemia, mild obstructive coronary artery disease, history of benign prostatic hypertrophy, history of osteoarthritis and degenerative disc disease history of gastroesophageal reflux disease and history of COPD, patient stated that his younger brother recently of Covid 19 pneumonia. On review of systems there is no fever or chills no headache or dizziness no chest pain no palpitation no nausea or vomiting no abdominal pain no diarrhea no blood in the stools no burning with urination no frequency or urgency and no hematuria. On 08/05/2020 patient was seen and examined on the medical floor he is alert and oriented 3 in no apparent distress he is still complaining of cough and mild shortness of breath there is no fever or chills no headache or dizziness no chest pain no palpitation, no nausea or vomiting no abdominal pain no diarrhea no blood in the stools no burning with urination no frequency or urgency and no hematuria. On 08/06/2020 patient was seen and examined on the medical floor he is alert and oriented 3 through the night he had episodes of severe abdominal pain with nausea and vomiting he is still complaining of cough and shortness of breath otherwise he denies any complaints there is no fever or chills no headache or di zziness no chest pain no palpitation and no urinary symptoms at this time will check amylase and lipase and check computed tomography scan of the abdomen and pelvis will follow closely. On 08/07/2020 patient was seen and examined on the medical floor he is alert and oriented 3 in no apparent distress he is still complaining of abdominal pain no new episodes of nausea or vomiting he has shortness of breath with any activity he has cough otherwise he denies any complaints there is no fever or chills no headache or dizziness no chest pain no palpitation no nausea or vomiting no diarrhea no blood in the stools no burning with urination no frequency or urgency and no hematuria, computed tomography scan of the abdomen and pelvis was reviewed and it shows some abnormal shadow in the anterior wall of the bladder otherwise no significant abnormality on computed tomography scan, will obtain a urine analysis, patient is requesting increase in his pain medications, will recheck labs and follow in a.m. On 08/08/2020 patient was seen and examined on the medical floor he is alert and oriented 3 in no apparent distress today he is complaining of lower chest pain and upper abdominal pain he states that Dilaudid did not relieve his pain through the night , he is still complaining of cough and shortness of breath otherwise he denies any complaints there is no fever or chills, no headache or dizziness no palpitation no nausea or vomiting no abdominal pain no diarrhea no blood in the stools no burning with urination no frequency or urgency and no hematuria, at this time will recheck chest x-ray check EKG check echocardiogram and check troponin level and consult cardiology in regard to chest pain, continue current medication otherwise, will discontinue Dilaudid as patient did not have any relief from his pain with it, and increase the frequency of [place]. Objective - Vital Signs Vital signs: Vital Signs Temp 98.0 F 08/08/20 05:23 Pulse 57 L 08/08/20 05:23 Resp 18 08/08/20 05:23 BP 119/70 08/08/20 05:23 Pulse Ox 94 L 08/08/20 05:23 Intake & Output 08/07/20 08/08/20 08/08/20 18:59 06:59 18:59 Other: Voiding Method Toilet Toilet # Voids 3 2 # Bowel Movements 1 - Exam In general patient is alert and oriented 3 in no apparent distress HEENT head normocephalic and atraumatic Neck is supple no JVD no goiter no lymphadenopathy Chest exam reveals a few scattered rhonchi no wheezing Cardiac exam reveals regular heart sounds S1 and S2 no gallops no murmurs Abdomen is soft, with generalized tenderness , mostly in the periumbilical area no hepatomegaly no splenomegaly bowel sounds are slightly hyperactive Extremity exam reveals no edema no cyanosis or clubbing Neurological examination reveals no gross focal deficits - Labs CBC & Chem 7: 08/08/20 05:27 08/08/20 05:27 Labs: Abnormal Lab Results - Last 24 Hours (Table) 08/07/20 08/07/20 08/08/20 Range/Units 06:05 12:07 05:27 RBC 4.23 L (4.30-5.90) m/uL Hgb 12.4 L (13.0-17.5) gm/dL Hct 38.6 L (39.0-53.0) % Anion Gap 2.50 L (4.00-12.00) mmol/L Est GFR (CKD-EPI)NonAf 58.8 L (60.0-200.0) AST 46 H (14-35) U/L ALT 55 H (10-49) U/L Urine Protein Trace H (Negative) Assessment and Plan Plan: 1. Right lower lobe pneumonia, with positive PCR testing for Covid 19 2. Underlying history of COPD 3. Underlying history of hypertension 4. Underlying history of hyperlipidemia 5. Underlying history of benign prostatic hypertrophy 6. Underlying history of osteoarthritis with degenerative disc disease with chronic pain maintained on [place] 7. Abdominal pain was nausea and vomiting last night at this time will obtain computed tomography scan of the abdomen and pelvis with check amylase and lipase will follow closely, no significant abnormality on computed tomography scan amylase or lipase, will check urine analysis was [employer] with increased pain medications per patient's request will follow in a.m. At this time patient is admitted to medical floor He was started on IV Decadron and subcu Lovenox Pulmonary consultation was requested Home medications reviewed and reordered Will follow closely
[2020-08-08 09:51] VITALS: RESP 17
[2020-08-08] MEDS: ALBUTEROL HFA INHALER INHALATION PRN (11:01)
--- NOTE | 2020-08-08 11:46 | XR ---
EXAMINATION TYPE: XR chest 1V DATE OF EXAM: 08/08/2020 COMPARISON: Prior chest 08/05/2020 HISTORY: Shortness of breath TECHNIQUE: Single frontal view of the chest is obtained. FINDINGS: There is no interval change IMPRESSION: Stable exam, correlate for pneumonia
--- NOTE | 2020-08-08 12:44 | PN ---
PROGRESS NOTE Mr. Rocha is a 75-year-old male with a known history of hypertension, history of hyperlipidemia, who presented with COVID-19 infection. His breathing is stable. He is complaining of generalized discomfort in the abdomen, back and in the chest. He denies any dizziness or palpitation. He is quite uncomfortable with the discomfort. He denies any significant dyspnea or cough. He is afebrile. He continues to be at this time on aspirin once a day, fenofibrate, isosorbide mononitrate 30 mg daily, metoprolol tartrate 25 mg twice a day. PHYSICAL EXAMINATION: Blood pressure 105/50 with a heart rate 60. LUNGS: No wheezes or rales. HEART: Regular rate and rhythm S1, S2. No S3. No rub with mild chest wall tenderness. ABDOMEN: Soft, mild discomfort. No rebound. EXTREMITIES: No edema. LAB DATA: Revealed troponin less than 0.012. IMPRESSION: 1. Chest discomfort has atypical features for ischemic heart disease, probably noncardiac, probably related to COVID-19 infection. 2. COVID-19 infection. 3. History of hypertension. 4. Hyperlipidemia. RECOMMENDATION: From the cardiac standpoint, at this time, there is no indication of acute coronary syndrome. We will continue clinical observation. No change in his medical regimen is needed. MMODL / IJN: [id number] /
--- NOTE | 2020-08-08 14:06 | P.PN ---
Subjective Progress Note Date: 08/08/20 Principal diagnosis: Dyspnea, cough, COVID19 75-year-old male patient with known history of mild asthmatic bronchitis maintained on Ventolin outpatient basis. The patient felt sick approximately a week ago. He was feeling weak and tired and some slight chills. He went to his primary care physician's office and the covert testing that was done on 08/02/2020 was positive. The patient was hospitalized yesterday because of some increased cough and shortness of breath. His pulse ox on room is on 95%. His current inflammation markers show a CRP of 27, LDH of 5-66, and the rest of the electrodes are all within normal limits. Liver function tests are normal. Pro-calcitonin level is at 0.09. His d-dimer is at 0.36. Prophylactic anticoagulation started in the form of Lovenox 40 mg every 24 hours On 08/05/2020 patient seen in follow-up on medical floor, he is awake and alert, breathing comfortably, he is currently on room air, pulse ox is 95%, vital signs are stable, he has had no fever or chills, no worsening dyspnea, today's chest x-ray showed patchy basilar density. Today's labs have been reviewed, d-dimer is 0.24, LDH is 2:30, CRP is 0.6. Pro-calcitonin 0.09. She remains on IV Decadron 6 mg daily, Coumadin dose of Lovenox is 40 mg daily. Patient has had no acute events overnight. On 08/08/2020 patient seen in follow-up on medical floor, he is sitting up in the recliner, breathing comfortably, he is currently on room air, denies any worsening dyspnea, room air pulse ox is 93-94%, vitals is stable, his been afebrile, his had no acute events overnight, his main complaint has been abdominal discomfort, chest discomfort, and back discomfort. His chest x-ray today shows patchy basilar density. He had a negative troponin, his labs have been reviewed, showing white blood cell count is 6.9, hemoglobin is 12.4, he'll exercise and renal profile were unremarkable, LFTs were within normal limits, amylase and lipase were within normal limits, urinalysis without signs of infection. Cardiology is following in regards to complaints of chest discomfort which was thought to be atypical in nature. He remains on IV Decadron, 6 mg daily, he is on albuterol, he is on prophylactic dose of Lovenox. Objective - Vital Signs Vital signs: Vital Signs Temp 98.8 F 08/08/20 09:51 Pulse 60 08/08/20 09:51 Resp 17 08/08/20 09:51 BP 105/59 08/08/20 09:51 Pulse Ox 93 L 08/08/20 09:51 Intake & Output 08/07/20 08/08/20 08/08/20 18:59 06:59 18:59 Other: Voiding Method Toilet Toilet Toilet # Voids 3 2 # Bowel Movements 1 - Exam GENERAL EXAM: Alert, very pleasant, 75-year-old male on room air, pulse ox of 9 4% on room air comfortable in no apparent distress. HEAD: Normocephalic/atraumatic. EYES: Normal reaction of pupils, equal size. Conjunctiva pink, sclera white. NOSE: Clear with pink turbinates. THROAT: No erythema or exudates. NECK: No masses, no JVD, no thyroid enlargement, no adenopathy. CHEST: No chest wall deformity. Symmetrical expansion. LUNGS: Equal air entry with no crackles, wheeze, rhonchi or dullness. CVS: Regular rate and rhythm, normal S1 and S2, no gallops, no murmurs, no rubs ABDOMEN: Soft, nontender. No hepatosplenomegaly, normal bowel sounds, no guarding or rigidity. EXTREMITIES: No clubbing, no edema, no cyanosis, 2+ pulses and upper and lower extremities. MUSCULOSKELETAL: Muscle strength and tone normal. SPINE: No scoliosis or deformity SKIN: No rashes CENTRAL NERVOUS SYSTEM: Alert and oriented -3. No focal deficits, tone is normal in all 4 extremities. PSYCHIATRIC: Alert and oriented -3. Appropriate affect. Intact judgment and insight. - Labs CBC & Chem 7: 08/08/20 05:27 08/08/20 05:27 Labs: Abnormal Lab Results - Last 24 Hours (Table) 08/07/20 08/08/20 08/08/20 Range/Units 12:07 05:27 05:27 RBC 4.23 L (4.30-5.90) m/uL Hgb 12.4 L (13.0-17.5) gm/dL Hct 38.6 L (39.0-53.0) % BUN/Creatinine Ratio 23.00 H (12.00-20.00) Ratio Urine Protein Trace H (Negative) Assessment and Plan Plan: Assessment: 1 Acute covid19 related infection with secondary constitutional symptoms 2 shortness of breath and cough secondary to above. The patient is maintaining a pulse ox of 93-94% on room air oxygen. May be some basilar infiltrates/perihilar, minimal at this stage with low-level inflammatory markers and low d-dimer. 3 chronic asthmatic bronchitis currently inactive in stable 4. Underlying history of hyperlipidemia 5. Underlying history of benign prostatic hypertrophy 6. Underlying history of osteoarthritis with degenerative disc disease with chronic pain maintained on [place] 7 hypertension 8 chest discomfort, cardiology following, thought to be atypical in nature, troponin is less than 0.012 9 back and abdominal discomfort Plan: Patient has remained stable from pulmonary perspective, continue Decadron for a total of 10 days, patient remains on room air, no worsening dyspnea, no worsening of polysubstance, no fever or chills, he can considered for discharge when cleared by cardiology and medicine. I performed a history & physical examination of the patient and discussed their management with my nurse practitioner, Sheree Pate. I reviewed the nurse practitioner's note and agree with the documented findings and plan of care. Lung sounds are positive for minimal crackles The findings and the impression was discussed with the patient. I attest to the documentation by the nurse practitioner. Time with Patient: Less than 30
[2020-08-08 14:31] VITALS: BP 135/54; PULSE 74; TEMP 97.7
--- NOTE | 2020-08-08 17:34 | P.DS ---
Providers Date of admission: 08/03/20 15:40 Expected date of discharge: 08/08/20 Attending physician: Andres Brown Consults: 08/03/20 15:40 Consult Physician Urgent Consulting Provider: Eder Summers Consult Reason/Comments: COVID pneumonia Do you want consulting provider notified?: Yes 08/03/20 16:29 Consult Physician Urgent Consulting Provider: Nathan Cassidy Consult Reason/Comments: chest pain Do you want consulting provider notified?: Yes 08/06/20 11:42 Consult Physician Routine Consulting Provider: Jamal Miller Consult Reason/Comments: abdominal pain Do you want consulting provider notified?: Yes 08/08/20 09:27 Consult Physician Routine Consulting Provider: Sanjay Kauffman Consult Reason/Comments: chest pain Do you want consulting provider notified?: Yes Primary care physician: Andresmiguel Brown [facility] Course: Diagnosis on discharge: 1. Right lower lobe pneumonia, with positive PCR testing for Covid 19 2. Underlying history of COPD 3. Underlying history of hypertension 4. Underlying history of hyperlipidemia 5. Underlying history of benign prostatic hypertrophy 6. Underlying history of osteoarthritis with degenerative disc disease with chronic pain maintained on [place] 7. Abdominal pain was nausea and vomiting last night at this time will obtain computed tomography scan of the abdomen and pelvis with check amylase and lipase will follow closely, no significant abnormality on computed tomography scan amylase or lipase, will check urine analysis 8. Episode of chest pain on 08/08/2020, EKG and cardiac enzymes were negative, patient reevaluated by cardiology no further testing was recommended, slightly chest pain and abdominal pain are related to Covid 19 infection Hospital course: Trevon Rocha, is a 75-year-old male, who presented to [facility] emergency room with worsening shortness of breath and cough, patient was seen one day earlier in our office and had a Covid 19 PCR testing that was positive, he was evaluated in emergency room, vital examination on presentation reveals a temperature of 98.5 pulse 61 respiration 20 blood pressure 116/62 pulse ox 94% on room air, chest x-ray revealed evidence of right lower lobe pneumonia he was started on IV Decadron and subcu Lovenox and was admitted to medical floor pulmonary consultation was requested. Patient has a known history of hypertension, hyperlipidemia, mild obstructive coronary artery disease, history of benign prostatic hypertrophy, history of osteoarthritis and degenerative disc disease history of gastroesophageal reflux disease and history of COPD, patient stated that his younger brother recently of Covid 19 pneumonia. On review of systems there is no fever or chills no headache or dizziness no chest pain no palpitation no nausea or vomiting no abdominal pain no diarrhea no blood in the stools no burning with urination no frequency or urgency and no hematuria. On 08/05/2020 patient was seen and examined on the medical floor he is alert and oriented 3 in no apparent distress he is still complaining of cough and mild shortness of breath there is no fever or chills no headache or dizziness no chest pain no palpitation, no nausea or vomiting no abdominal pain no diarrhea no blood in the stools no burning with urination no frequency or urgency and no hematuria. On 08/06/2020 patient was seen and examined on the medical floor he is alert and oriented 3 through the night he had episodes of severe abdominal pain with nausea and vomiting he is still complaining of cough and shortness of breath otherwise he denies any complaints there is no fever or chills no headache or dizziness no chest pain no palpitation and no urinary symptoms at this time will check amylase and lipase and check computed tomography scan of the abdomen and pelvis will follow closely. On 08/07/2020 patient was seen and examined on the medical floor he is alert and oriented 3 in no apparent distress he is still complaining of abdominal pain no new episodes of nausea or vomiting he has shortness of breath with any activity he has cough otherwise he denies any complaints there is no fever or chills no headache or dizziness no chest pain no palpitation no nausea or vomiting no diarrhea no blood in the stools no burning with urination no frequency or urg ency and no hematuria, computed tomography scan of the abdomen and pelvis was reviewed and it shows some abnormal shadow in the anterior wall of the bladder otherwise no significant abnormality on computed tomography scan, will obtain a urine analysis, patient is requesting increase in his pain medications, will recheck labs and follow in a.m. On 08/08/2020 patient was seen and examined on the medical floor he is alert and oriented 3 in no apparent distress today he is complaining of lower chest pain and upper abdominal pain he states that Dilaudid did not relieve his pain through the night , he is still complaining of cough and shortness of breath otherwise he denies any complaints there is no fever or chills, no headache or dizziness no palpitation no nausea or vomiting no abdominal pain no diarrhea no blood in the stools no burning with urination no frequency or urgency and no hematuria, at this time will recheck chest x-ray check EKG check echocardiogram and check troponin level and consult cardiology in regard to chest pain, continue current medication otherwise, will discontinue Dilaudid as patient did not have any relief from his pain with it, and increase the frequency of [place]. EKG and cardiac enzymes were negative patient was reevaluated by cardiology no further recommendation for any testing were made, patient was discharged home on 08/08/2020 he would be followed in our office for further evaluation and treatment within one week Plan - Discharge Summary Discharge Rx Participant: No New Discharge Prescriptions: New Dexamethasone [Decadron] 4 mg PO DAILY 10 Days #10 tablet Continue Fenofibrate Nanocrystallized [Tricor] 145 mg PO DAILY #30 tablet Tamsulosin [Flomax] 0.4 mg PO DAILY Baclofen 10 mg PO HS Aspirin [Adult Low Dose Aspirin EC] 81 mg PO DAILY Ergocalciferol (Vitamin D2) [Vitamin D2] 50,000 unit PO WE Pantoprazole [Protonix] 40 mg PO DAILY Isosorbide Mononitrate ER [Imdur] 30 mg PO DAILY Metoprolol Tartrate [Lopressor] 25 mg PO BID tab Nitroglycerin Sl Tabs [Nitrostat] 0.4 mg SUBLINGUAL Q5M PRN tab PRN Reason: Chest Pain Dicyclomine [Bentyl] 20 mg PO QID PRN PRN Reason: IBS HYDROcodone/APAP 10-325MG [[place] 10-325] 1 tab PO TID Albuterol Inhaler [Ventolin Hfa Inhaler] 2 puff INHALATION RT-Q4H PRN PRN Reason: Shortness Of Breath Discharge Medication List Fenofibrate Nanocrystallized [Tricor] 145 mg PO DAILY #30 tablet 08/05/15 [Rx] Tamsulosin [Flomax] 0.4 mg PO DAILY 06/27/16 [History] Aspirin [Adult Low Dose Aspirin EC] 81 mg PO DAILY 10/24/18 [History] Baclofen 10 mg PO HS 10/24/18 [History] Ergocalciferol (Vitamin D2) [Vitamin D2] 50,000 unit PO WE 10/24/18 [History] Pantoprazole [Protonix] 40 mg PO DAILY 02/25/19 [History] Isosorbide Mononitrate ER [Imdur] 30 mg PO DAILY 03/24/20 [History] Metoprolol Tartrate [Lopressor] 25 mg PO BID tab 03/25/20 [Rx] Nitroglycerin Sl Tabs [Nitrostat] 0.4 mg SUBLINGUAL Q5M PRN tab 03/25/20 [Rx] Dicyclomine [Bentyl] 20 mg PO QID PRN 05/26/20 [History] HYDROcodone/APAP 10-325MG [[place] 10-325] 1 tab PO TID 05/26/20 [History] Albuterol Inhaler [Ventolin Hfa Inhaler] 2 puff INHALATION RT-Q4H PRN 08/03/20 [History] Dexamethasone [Decadron] 4 mg PO DAILY 10 Days #10 tablet 08/08/20 [Rx] Follow up Appointment(s)/Referral(s): Andres Brown MD [Primary Care Provider] - 1-2 days Patient Instructions/Handouts: Viral Pneumonia (DC)
== END 2020-08-08 17:56 | disposition home or self-care (01) | DRG 177 ==
LOC: EC 12:30 → 4SSUR 15:40
PROVIDERS: ADMIT Internal Medicine; ATTEND Internal Medicine
DX: U07.1 COVID-19 (principal); J12.82 Pneumonia due to coronavirus disease 2019; J44.0 Chronic obstructive pulmonary disease with (acute) lower respiratory infection; K57.90 Diverticulosis of intestine, part unspecified, without perforation or abscess without bleeding; I25.10 Atherosclerotic heart disease of native coronary artery without angina pectoris; N40.0 Benign prostatic hyperplasia without lower urinary tract symptoms; R11.12 Projectile vomiting; E78.5 Hyperlipidemia, unspecified; I10 Essential (primary) hypertension; K21.9 Gastro-esophageal reflux disease without esophagitis; N40.1 Benign prostatic hyperplasia with lower urinary tract symptoms; R35.0 Frequency of micturition; M54.9 Dorsalgia, unspecified; M19.90 Unspecified osteoarthritis, unspecified site; G89.29 Other chronic pain; Z90.49 Acquired absence of other specified parts of digestive tract; Z98.890 Other specified postprocedural states; Z91.018 Allergy to other foods; Z79.899 Other long term (current) drug therapy; Z79.82 Long term (current) use of aspirin; Z79.891 Long term (current) use of opiate analgesic; Z87.891 Personal history of nicotine dependence
CPT/HCPCS: 36415; 71045; 74177; 80053; 81003; 82150; 82728; 83605; 83615; 83690; 83735; 84145; 84484; 85025; 85379; 85610; 85730; 86140; 93005; 94640; 94760; 96374; 99285

== ENCOUNTER → 2020-10-28 | Outpatient (CLI) | payer MEDICARE ==
--- NOTE | 2020-10-28 12:59 | XR ---
EXAMINATION TYPE: XR Hip Bilateral Complete DATE OF EXAM: 10/28/2020 COMPARISON: NONE HISTORY: Pain TECHNIQUE: 2 views submitted FINDINGS: There is no evidence of erosive change or acute fracture. Hypertrophic change of the acetabulum. Moderate narrowing of the hip joint. Calcifications in the pel vis noted. There is severe narrowing of the left hip joint with acetabular hypertrophy. Near complete loss of marnie int space. No erosive changes. IMPRESSION: 1. Severe bilateral osteoarthritis greater on the left with complete loss of joint space. Correlate f or bilateral femoral acetabular impingement.
--- NOTE | 2020-10-28 13:01 | XR ---
EXAM TYPE: LUMBAR SPINE X RAY SERIES COMPARISON: NONE HISTORY: Pain TECHNIQUE: 4 views are submitted. FINDINGS: Alignment is anatomic. The pedicles are intact. The transverse processes are intact. There is shirin re multilevel degenerative disc disease, facet arthropathy and hypertrophic spurring with multilevel foraminal encroachment. Slight curvature of the spine. Atherosclerotic change of the vasculature. IMPRESSION: 1. Severe multilevel degenerative disc disease and facet arthropathy. Multilevel foraminal encroachme nt.
== END | disposition home or self-care (01) ==
LOC: RADXRMAIN 12:01
PROVIDERS: ATTEND Internal Medicine
DX: M51.36 Other intervertebral disc degeneration, lumbar region (principal); M47.816 Spondylosis without myelopathy or radiculopathy, lumbar region; M99.73 Connective tissue and disc stenosis of intervertebral foramina of lumbar region; M16.0 Bilateral primary osteoarthritis of hip
CPT/HCPCS: 72110; 73521

== ENCOUNTER 2022-04-05 08:44 | Day surgery (SDC) | payer MEDICARE ==
[2022-04-04 12:15] VITALS: BMI 36.1
[2022-04-05 09:24] VITALS: TEMP 98.5
--- NOTE | 2022-04-05 10:06 | P.GSHP ---
History of Present Illness H&P Date: 04/05/22 Chief Complaint: Screening colonoscopy Is a 76-year-old male presents today for screening colonoscopy. Patient denies any significant GI complaints. Past Medical History Past Medical History: Chest Pain / Angina, GERD/Reflux, Hyperlipidemia, Hypertension Additional Past Medical History / Comment(s): Pt states he tested covid + on 08/02/[address] Brown's office. Other hx: Occasional chest pain, divertic ular disease, frequent urination, asthmatic bronchitis, SOB with exertion, chronic mid back pain, bone chip R elbow, numbness/tingling bilateral legs. CHANGE IN BOWEL HABITS History of Any Multi-Drug Resistant Organisms: None Reported Past Surgical History: Cholecystectomy, Heart Catheterization Additional Past Surgical History / Comment(s): thyroid biopsy x2, heart cath x3 in past no stents - per pt, EGD, colonoscopies, R hand sting injury with surgery, metal debris removed from eyes, facial laceration repair. Past Anesthesia/Blood Transfusion Reactions: No Reported Reaction Smoking Status: Former smoker - Past Family History Father Family Medical History: No Reported History Additional Family Medical History / Comment(s): Father was healthy and lived to be 95 yrs. old Mother Family Medical History: No Reported History Additional Family Medical History / Comment(s): Mother at the age of 86 following a hip fracture. Medications and Allergies Home Medications Medication Instructions Recorded Confirmed Type Aspirin [Adult Low Dose Aspirin EC] 81 mg PO DAILY 10/24/18 04/05/22 History Baclofen 10 mg PO HS 10/24/18 04/05/22 History Pantoprazole [Protonix] 40 mg PO DAILY 02/25/19 04/05/22 History Isosorbide Mononitrate ER [Imdur] 30 mg PO DAILY 03/24/20 04/05/22 History Metoprolol Tartrate [Lopressor] 25 mg PO BID tab 03/25/20 04/05/22 Rx Nitroglycerin Sl Tabs [Nitrostat] 0.4 mg SUBLINGUAL Q5M PRN tab 03/25/20 04/05/22 Rx HYDROcodone/APAP 10-325MG [[place] 1 tab PO TID 05/26/20 04/05/22 History 10-325] Cholecalciferol [Vitamin D3 (25 50 mcg PO DAILY 04/04/22 04/05/22 History Mcg = 1000 Iu)] Magnesium Oxide [Magnesium] 500 mg PO DAILY 04/04/22 04/05/22 History Allergies Allergy/AdvReac Type Severity Reaction Status Date / Time yeast, dried [yeast] Allergy "PER Verified 04/05/22 09:21 ALLERGY TEST" Surgical - Exam Vital Signs Temp Pulse Resp BP Pulse Ox 98.5 F 68 18 165/94 96 04/05/22 09:22 04/05/22 09:22 04/05/22 09:22 04/05/22 09:22 04/05/22 09:22 - General well developed, well nourished, no distress - Eyes PERRL - ENT normal pinna - Neck no masses - Respiratory normal expansion - Cardiovascular Rhythm: regular - Abdomen Abdomen: soft, non tender Assessment and Plan Assessment: We'll perform screening colonoscopy
[2022-04-05] MEDS ORDERED: LIDOCAINE 2% INJ 20 MG/ML (2 ML VIAL) ONE (10:09)
[2022-04-05] MEDS ORDERED: PROPOFOL 10 MG/ML 20 ML VIAL IV ONE (10:09)
--- NOTE | 2022-04-05 10:26 | P.OP ---
Date of Procedure: 04/05/22 Preoperative Diagnosis: Screening colonoscopy Postoperative Diagnosis: Diverticulosis Procedure(s) Performed: Colonoscopy Anesthesia: MAC Surgeon: Elio Hawkins Pathology: none sent Condition: stable Disposition: PACU Description of Procedure: The patient's placed on the endoscopy table. He received IV sedation. Digital rectal exam was performed which revealed no abnormalities. The flexible colonoscope was then placed patient anus and passed throughout the entire colon. The ileocecal valve was visualized. Cecum, ascending and transverse colon appeared normal. In the descending and sigmoid: There was moderate diverticular changes. The scope was brought back the rectum this appeared normal. Scope withdrawn for patient.
[2022-04-05 10:32] VITALS: RESP 16
[2022-04-05 10:49] VITALS: BP 121/64; PULSE 64
== END 2022-04-05 11:05 | disposition home or self-care (01) ==
LOC: ORWHC2ENDO 08:44
PROVIDERS: ATTEND Surgery
DX: Z12.11 Encounter for screening for malignant neoplasm of colon (principal); K57.30 Diverticulosis of large intestine without perforation or abscess without bleeding; R07.9 Chest pain, unspecified; K21.9 Gastro-esophageal reflux disease without esophagitis; E78.5 Hyperlipidemia, unspecified; I10 Essential (primary) hypertension; R35.0 Frequency of micturition; J45.909 Unspecified asthma, uncomplicated; M54.9 Dorsalgia, unspecified; G89.29 Other chronic pain; R20.0 Anesthesia of skin; R19.4 Change in bowel habit; Z90.89 Acquired absence of other organs; Z95.1 Presence of aortocoronary bypass graft; Z98.890 Other specified postprocedural states; Z87.891 Personal history of nicotine dependence; Z84.89 Family history of other specified conditions; Z79.899 Other long term (current) drug therapy; Z79.82 Long term (current) use of aspirin; Z91.018 Allergy to other foods
CPT/HCPCS: G0121; J2704; J2001; 45378

== ENCOUNTER → 2022-10-09 | Outpatient (CLI) | payer MEDICARE ==
[2022-10-09 15:54] LABS: Partial Thromboplastin Time 23.5 sec (22.0-30.0); Prothrombin Time 10.3 sec (9.0-12.0)
[2022-10-09 22:34] LABS: HCT 43.3 % (39.6-50.0); HGB 13.6 g/dL (13.0-17.0); MCH 30.4 pg (27.0-32.0); MCHC 31.4 g/dL (32.0-37.0); MCV 96.9 fL (80.0-97.0); Mean Platelet Volume 11.6 fL (9.5-12.2); NRBC Per 100 WBC 0 /100 WBCS (0.0-0.0); Platelet Count 288 X 10*3/uL (140-440); RBC 4.47 X 10*6/uL (4.40-5.60); RDW 12.5 % (11.5-14.5); WBC 7.46 X 10*3/uL (4.50-10.00)
[2022-10-09 22:44] LABS: African American GFR (CKD) 64.6 (60.0-200.0); Albumin 4.4 g/dL (3.8-4.9); Albumin/Globulin Ratio 1.65 (1.60-3.17); Anion Gap 9.7 mmol/L (10.00-18.00); BUN/Creat Ratio 12.9 Ratio (12.00-20.00); Calcium 9.7 mg/dL (8.7-10.3); Carbon Dioxide 24.5 mmol/L (20.0-27.5); Globulin 2.7 g/dL (1.6-3.3); Non-African American GFR(CKD) 55.7 (60.0-200.0); Potassium 4.4 mmol/L (3.5-5.5); Total Bilirubin 0.3 mg/dL (0.30-1.20)
[2022-10-09 22:53] LABS: Appearance,Urine Clear (Clear); Bilirubin,Urine Negative (Negative); Blood,Urine Negative (Negative); Color,Urine Yellow (Yellow); Ketones,Urine Negative (Negative); Nitrite,Urine Negative (Negative)
[2022-10-09 23:03] LABS: Bacteria,Urine None Seen /HPF (None Seen)
== END | disposition home or self-care (01) ==
LOC: LABPAT 13:29
PROVIDERS: ATTEND Orthopaedic Surgery
DX: Z01.812 Encounter for preprocedural laboratory examination (principal); M16.12 Unilateral primary osteoarthritis, left hip; R00.1 Bradycardia, unspecified
CPT/HCPCS: 36415; 80053; 81001; 85027; 85610; 85730; 87070; 93005

== ENCOUNTER 2022-10-16 07:25 | Day surgery (SDC) | payer MEDICARE ==
[2022-10-12 12:04] VITALS: BMI 36.1
[~2022-10-16 07:25] MED LIST changes: +ACETAMINOPHEN TAB 500 MG TAB PO PRN; +DEXAMETHASONE SOD PHOSPHATE 4 MG/ML 1 ML VIAL IV ONE; +GABAPENTIN 300 MG CAP PO PRN; -LACTATED RINGERS 1,000 ML IV SCH; +LIDOCAINE 1% (10MG/ML) FOR IV START INTRADERMA PRN; +MELOXICAM 7.5 MG TAB PO PRN; +MIDAZOLAM 2 MG/2 ML VIAL IV PRN; +ONDANSETRON 4 MG/2 ML VIAL IVP ONE; +TRANEXAMIC ACID IN NACL,ISO-OS 1,000 MG in SALINE 1 100ML.BAG IVPB PRN
[2022-10-16] MEDS: LACTATED RINGERS 1,000 ML IV SCH (08:33)
[2022-10-16] MEDS ORDERED: TRANEXAMIC ACID IN NACL,ISO-OS 1,000 MG/100 ML BAG ONE (08:46)
[2022-10-16] MEDS ORDERED: KETAMINE 10 MG/ML 20 ML VIAL ONE (08:46)
[2022-10-16] MEDS ORDERED: DEXAMETHASONE SOD PHOSPHATE 4 MG/ML 1 ML VIAL ONE (08:46)
[2022-10-16] MEDS ORDERED: fentaNYL (PF) 50 MCG/ML 2 ML AMP ONE (08:46)
[2022-10-16] MEDS ORDERED: ROPIVACAINE 5 MG/ML 30 ML VIAL ONE (08:46)
[2022-10-16] MEDS ORDERED: ePHEDrine 50 MG/ML 1 ML VIAL ONE (08:46)
[2022-10-16] MEDS ORDERED: PROPOFOL 10 MG/ML 20 ML VIAL IV ONE (08:46)
[2022-10-16] MEDS ORDERED: ROPIVACAINE 5 MG/ML 30 ML VIAL MISCELLANE ONE ×2 (08:54→09:17)
[2022-10-16] MEDS ORDERED: ceFAZolin 1,000 MG in SODIUM CHLORIDE 0.9% 1,000 ML IRRIGATION ONE (09:07)
--- NOTE | 2022-10-16 09:52 | P.OP ---
Date of Procedure: 10/16/22 Preoperative Diagnosis: Severe osteoarthritis left hip Postoperative Diagnosis: Severe osteoarthritis left hip Procedure(s) Performed: Left total hip arthroplasty with a direct anterior approach Implants: [employer] Polarstem standard size 7 [employer]hew R3, 3 hole hemispherical acetabular shell, 54 mm [employer] Reflection 6.5 mm cancellus screw, 25 mm 2 [employer] R3, XLPE 20 acetabular liner [employer]hew Oxinium femoral head 36 m, +0 All components were press-fit. The articulation is Oxinium on polyethylene. Anesthesia: spinal Surgeon: Jacob Horvath Billboard Erector #1: Daniela He Estimated Blood Loss (ml): 100 Pathology: other (Femoral head) Condition: stable Disposition: PACU Indications for Procedure: After failure of conservative treatment we discussed the surgical and nonsurgical treatment options at length. Patient wishes to proceed with a total hip arthroplasty with a direct anterior approach. Complications specific to this procedure were discussed at length, including but not limited to infection, leg length discrepancy, dislocation, nerve injury, and fracture. Covid-19 was also discussed at length with the patient, and they are aware of the current policies and procedures. The patient was given the option of delaying surgery, but they elect to proceed knowing these risks. Patient is aware of all these complications and informed consent was obtained Operative Findings: The operative findings are consistent with severe osteoarthritis of the left hip Description of Procedure: The patient was seen and evaluated in the preoperative area and the consent was reviewed. The operative site was marked with a skin marker. The patient verified the procedure and operative site. A THELMA block was [facility] in the preoperative area. The patient was then brought to the operating room and given preoperative antibiotics intravenously. 1 g of Tranexamic acid was also given intravenously. A spinal anesthetic was administered by the anesthesia department. The patient was then placed on the Guthrie table with the bony prominences well-padded. The hip area was then prepped with a ChloraPrep solution and draped in the usual sterile fashion. A universal timeout was then performed, which confirmed the patient's name, surgical site, ALLERGIES, and procedure being performed on the consent. Next the incision site was located at 1 cm distal and 4 cm lateral to the anterior superior iliac spine. The skin and subcutaneous tissues were sharply incised. Incision was carefully dissected down to the fascia overlying the tensor fascia lou muscle. This fascia was then incised in line with the muscle fibers. Care was taken to stay laterally in order to avoid injuring the lateral femoral cutaneous nerve. Next, using blunt finger dissection, the tensor fascia lou muscle was dissected off its investing fascia. The muscle was then carefully retracted laterally with a cobra retractor over the lateral neck of the femur. Next, the circumflex vessels were identified and cauterized using the Aquamantis device. The anterior hip capsule was then exposed. The capsule was then opened and an inverted T fashion. The retractors were then placed intracapsularly. The retractors were maintained intracapsular throughout the procedure. The proximal femur was then visualized. Fluoroscopic x-rays were then taken in order to evaluate the preoperative leg lengths. A small amount of traction was placed on the leg. The femoral neck was then osteotomized at the appropriate level above the lesser trochanter. A small wedge of bone was then removed from the remaining femoral head. Next, using a corkscrew the femoral head was removed from the acetabulum. On gross visual inspection, the femoral head had complete loss of articular cartilage and multiple periarticular osteophytes. The femoral head was then measured. Attention was then turned to the acetabulum. The acetabulum was exposed and any remaining labrum was excised. Sequential reaming of the acetabulum was performed using fluoroscopic guidance until there was a good bed of bleeding cancellus bone. When the appropriate size was reached, a trial was then placed. The position and fit of the trial was checked with fluoroscopy. The trial was then removed. Then, using fluoroscopic guidance, the final implant was impacted at 20 of anteversion and 40 of abduction, and fully seated in the acetabulum. 2 screws were then placed in the acetabulum. Again fluoroscopy was used to check position of the screws. Next, the liner was then impacted, with a 20 elevated liner located in the anterior superior quadrant. Component locking was confirmed. Attention was then directed to the femur. With the aid of the Guthrie table, the femur was externally rotated to approximately 130, extended, and adducted under the opposite leg. A side hook was then placed under the proximal femur, and the side hook elevator was used to elevate the proximal femur while releasing the capsule. Retractors were then placed. A capsular release was performed, as well as a release of the conjoined tendon, which afforded excellent visualiza tion of the proximal femur. Next, a box osteotome was used to lateralize the proximal femur. A insole tack puller hand was then used to locate the femoral canal. Sequential broaching was then performed with appropriate size which afforded excellent fixation in the proximal femur. A trial was then placed with appropriate head and neck, and the hip was gently reduced with the aid of the Guthrie table. Fluoroscopy was then used to check position of the components, as well as to evaluate the leg lengths and offset. The leg lengths and offset were measured as closely as possible to ensure stability of the hip. The hip was then gently dislocated and the trials were then removed. Final implants were then impacted and the hip was again reduced. Final fluoroscopic x-rays confirmed that the components were in anatomic position. The leg lengths and offset were measured and were found to coincide with the trial measurements. The hip was also taken through range of motion, and found to be stable. The hip was then copiously irrigated with antibiotic solution with pulsatile lavage. The hip was then irrigated with Irrisept solution. The soft tissues were then injected with a ropivacaine solution. A second dose of 1 g of Tranexamic acid was also given intravenously. The fascia was then closed with 2-0 strata fix suture. The subcutaneous tissue was closed with 3-0 Vicryl. The subcuticular tissue was closed with 3-0 strata fix suture. The skin was then closed with Exofin skin glue. After the glue and dried, and Optifoam silver impregnated dressing was applied. The patient was then transferred to the recovery room in stable condition. The medical practice assistant KARLY Montanez was required due to the complexity of surgery, and the need for skilled expanded function dental assistant for positioning, draping, exposure, retraction, and closure of the wound.
[2022-10-16] MEDS ORDERED: MAGNESIUM HYDROXIDE 2,400 MG/10 ML CUP PO PRN (10:23)
[2022-10-16] MEDS ORDERED: ONDANSETRON 4 MG/2 ML VIAL IVP PRN (10:23)
[2022-10-16] MEDS ORDERED: HYDROmorphone 0.5 MG/0.5 ML SYRINGE IVP PRN ×3 (10:23)
[2022-10-16] MEDS ORDERED: NALOXONE 0.4 MG/ML 1 ML VIAL IV PRN (10:23)
[2022-10-16] MEDS ORDERED: HYDROcodone/APAP 7.5-325MG 1 EACH TAB PO PRN (10:25)
--- NOTE | 2022-10-16 11:13 | XR ---
EXAMINATION TYPE: XR Hip Limited LT DATE OF EXAM: 10/16/2022 COMPARISON: NONE HISTORY: Postop TECHNIQUE: One view submitted. FINDINGS: There is postsurgical change in near anatomic alignment. There is soft tissue edema and emphysema. IMPRESSION: 1. Postoperative change. Appears in near-anatomic alignment.
--- NOTE | 2022-10-16 11:14 | FL ---
Intraoperative/procedural fluoroscopic services were provided. Total fluoroscopy time is 24 seconds w ith a total of 3 submitted images to PACS. Please see the operative/procedural note for further detai ls. DAP: 2.8296
[2022-10-16] MEDS: HYDROmorphone 0.5 MG/0.5 ML SYRINGE IVP PRN ×2 (12:46→13:02)
--- NOTE | 2022-10-16 13:20 | P.ANPRN ---
Procedure Note - Anesthesia - Nerve Block Performed Left Lamine Single Time Out Performed: Yes Date of Procedure: 10/16/22 Procedure Start Time: 08:42 Procedure Stop Time: 08:45 Location of Patient: PreOp Indication: Acute Post-Operative Pain, Requested by Surgeon Sedation Type: Sedate with meaningful contact maintained Preparation: Sterile Prep Position: Supine Needle Types: Pajunk Needle Gauge: 21 Ultrasound used to visualize needle placement: Yes Ultrasound used to observe medication spread: Yes Blood Aspirated: No Pain Paresthesia on Injection Noted: No Resistance on Injection: Normal Image Stored and Saved: Yes Events: Uneventful and Well Tolerated (Ropivacaine 0.5% 20 mL plus dexamethasone 4mg)
[2022-10-16] MEDS ORDERED: SODIUM CHLORIDE 0.9% 1,000 ML IV ONE (13:52)
[2022-10-16] MEDS ORDERED: NITROGLYCERIN SL TABS 0.4 MG TAB SUBLINGUAL PRN (16:13)
[2022-10-16] MEDS ORDERED: IPRATROPIUM-ALBUTEROL 3 ML NEB INHALATION SCH (16:14)
[2022-10-16] MEDS ORDERED: cloNIDine HCL 0.1 MG TAB PO PRN (16:15)
--- NOTE | 2022-10-16 16:40 | XR ---
EXAMINATION TYPE: XR chest 1V portable DATE OF EXAM: 10/16/2022 4:28 PM COMPARISON: Chest radiographs from 08/08/2020 TECHNIQUE: XR chest 1V portable Frontal view of the chest. CLINICAL INDICATION:Male, 77 years old with history of atelectasis; FINDINGS: Lungs/Pleura: Questionable cavitary lesion in the right lower lateral aspect measuring up to 2.6 cm. There is no evidence of pleural effusion, focal consolidation, or pneumothorax. Pulmonary vascularity: Unremarkable. Heart/mediastinum: Cardiomediastinal silhouette is unremarkable. Musculoskeletal: No acute osseous pathology. IMPRESSION: Questionable right lower lateral cavitary lesion measuring 2.6 cm. Further evaluation with CT chest w ith IV contrast recommended.
[2022-10-16] MEDS: SODIUM CHLORIDE 0.9% 1,000 ML IV SCH ×2 (17:05→23:48)
[2022-10-16] MEDS: HYDROcodone/APAP 7.5-325MG 1 EACH TAB PO PRN ×2 (18:54→23:48)
[2022-10-16] MEDS: IPRATROPIUM 0.5 MG/2.5 ML NEBU INHALATION SCH (20:48)
[2022-10-16] MEDS: ALBUTEROL NEBULIZED 2.5 MG/3 ML INHALATION SCH (20:48)
[2022-10-16] MEDS: SYMBICORT 160-4.5 MCG INHALER INHALATION SCH (20:48)
[2022-10-16] MEDS: BACLOFEN 10 MG TAB PO SCH (21:56)
[2022-10-16] MEDS: METOPROLOL TARTRATE 25 MG TAB PO SCH (21:57)
[2022-10-16] MEDS: ASPIRIN 81 MG PO SCH (21:57)
[2022-10-16] MEDS: SENNOSIDES-DOCUSATE SODIUM 1 EACH TAB PO SCH (22:01)
--- NOTE | 2022-10-17 03:18 | CONS ---
CONSULTATION REASON FOR CONSULTATION: Advice regarding asthmatic bronchitis, medication requested by Orthopedic Surgery. HISTORY OF PRESENT ILLNESS: This is a 77-year-old gentleman with a past medical history of hypertension, hyperlipidemia, also had a previous history of asthmatic bronchitis. The patient underwent left hip arthroplasty, complains of some cough at this time. There is no history of any fever, rigors, or chills. The pulse ox was 98% on 2 L. PAST MEDICAL HISTORY: Reviewed include hypertension, hyperlipidemia. Rest of the history and rest of the chart is also reviewed. HOME MEDICATIONS: Reviewed include multivitamin, Protonix. Doses and rest of medication noted. ALLERGIES: Yeast. FAMILY HISTORY: No history of heart disease or strokes in the family. SOCIAL HISTORY: Daily alcohol intake and previous history of smoking. REVIEW OF SYSTEMS: A 14-point review is negative except as mentioned earlier. PHYSICAL EXAMINATION: VITAL SIGNS: Pulse is 73, blood pressure 115/70, respirations 16. HEENT: Conjunctivae normal. NECK: No JVD. CARDIOVASCULAR; S1, S2 muffled. RESPIRATIONS: Breath sounds diminished at the bases. A few crackles especially in the left lower base. ABDOMEN: Soft, obese, nontender. LEGS: No edema. No swelling. NERVOUS SYSTEM: No focal deficits. SKIN: No ulcer, rash, or bleeding. JOINTS: No active deforming arthropathy. LABORATORY DATA: Not available. ASSESSMENT: 1. Status post left hip arthroplasty. 2. History of asthmatic bronchitis. 3. Gastroesophageal reflux disease. 4. Hypertension. 5. Hyperlipidemia. 6. Multiple medical issues. 7. History of EtOH. RECOMMENDATIONS AND DISCUSSION: This is a 77-year-old gentleman, who presented with multiple complex medical issues, we will monitor the patient closely. I would recommend resume the home medications once they are confirmed. Also recommend incentive spirometry, DVT prophylaxis. Stat portable chest x-ray to rule out the possibility of an atelectasis. Otherwise, I would also recommend to watch for any DTs. Monitor blood pressure closely. We will follow the patient closely. Further recommendations to follow. MMODL / IJN: [id number] /
[2022-10-17] MEDS: LACTATED RINGERS 1,000 ML IV SCH (03:20)
[2022-10-17 07:43] LABS: Basophils % (A) 0 %; Eosinophils # (A) 0.1 k/uL (0-0.7); Eosinophils % (A) 1 %; HCT 36.8 % (39.0-53.0); HGB 12.3 gm/dL (13.0-17.5); Lymphocytes # (A) 1.8 k/uL (1.0-4.8); Lymphocytes % (A) 25 %; MCHC 33.4 g/dL (31.0-37.0); MCV 92.8 fL (80.0-100.0); Mean Platelet Volume 9.1; Monocytes # (A) 0.5 k/uL (0-1.0); Monocytes % (A) 7 %; Neutrophils # (A) 4.9 k/uL (1.3-7.7); Neutrophils % (A) 66 %; Platelet Count 215 k/uL (150-450); RBC 3.97 m/uL (4.30-5.90); RDW 12.1 % (11.5-15.5); WBC 7.4 k/uL (3.8-10.6)
--- NOTE | 2022-10-17 07:43 | P.PN ---
Subjective Progress Note Date: 10/17/22 Principal diagnosis: Primary osteoarthritis left hip. Status post total left hip arthroplasty with direct anterior approach. This is a 77-year-old male who is postop day #1 status post total left hip arthroplasty. He is doing well from an orthopedic standpoint. He has no new co mplaints or concerns today. Vital signs and labs are stable. Objective - Vital Signs Vital signs: Vital Signs Temp 97.6 F 10/17/22 02:00 Pulse 62 10/17/22 02:00 Resp 15 10/17/22 02:00 BP 146/70 10/17/22 02:00 Pulse Ox 97 10/17/22 02:00 FiO2 Intake & Output 10/16/22 10/17/22 10/17/22 18:59 06:59 18:59 Intake Total 576 Output Total 100 1 Balance 476 -1 Weight 108.1 kg Intake: IV 576 Output: Urine/Stool Mix 1 Estimated Blood Loss 100 Other: Voiding Method Toilet Toilet # Voids 1 5 - Exam This is a pleasant 77-year-old male in no acute distress. He is alert and oriented 3. Exam of the left hip reveals that his dressing is clean, dry and intact. He has full foot and ankle motion without difficulty or pain. Neurovascular status to the lower extremity is intact. Assessment and Plan (1) Primary localized osteoarthritis of left hip Current Visit: Yes Status: Acute Code(s): M16.12 - UNILATERAL PRIMARY OSTEOARTHRITIS, LEFT HIP SNOMED Code(s): 741143624026523 (2) Status post total replacement of left hip Current Visit: Yes Status: Acute Code(s): Z96.642 - PRESENCE OF LEFT ARTIFICIAL HIP JOINT SNOMED Code(s): 124245985713 Plan: The clinical findings are discussed with the patient. We are planning discharge to inpatient rehab possibly tomorrow. We will await physical therapy and medication therapy evaluations today. Continue care.
[2022-10-17] MEDS: HYDROcodone/APAP 7.5-325MG 1 EACH TAB PO PRN ×2 (08:05→23:45)
[2022-10-17] MEDS ORDERED: NON FORMULARY DRUG (Aspirin [Adult Low Dose Aspirin Ec] 81 MG Tablet.Dr) PO SCH (09:00)
[2022-10-17] MEDS: ATORVASTATIN 40 MG TAB PO SCH (09:01)
[2022-10-17] MEDS: METOPROLOL TARTRATE 25 MG TAB PO SCH ×2 (09:01→20:48)
[2022-10-17] MEDS: CHOLECALCIFEROL 25 MCG (1000 IU) TABLET PO SCH (09:01)
[2022-10-17] MEDS: MAGNESIUM OXIDE 400 MG TAB PO SCH (09:01)
[2022-10-17] MEDS: ISOSORBIDE MONONITRATE ER 30 MG TAB.ER.24H PO SCH (09:01)
[2022-10-17] MEDS: MULTIVITAMINS, THERA 1 EACH TAB PO SCH (09:01)
[2022-10-17] MEDS: ASPIRIN 81 MG PO SCH ×2 (09:01→20:48)
[2022-10-17] MEDS: PANTOPRAZOLE 40 MG TABLET PO SCH (09:01)
[2022-10-17] MEDS: SYMBICORT 160-4.5 MCG INHALER INHALATION SCH ×2 (09:07→21:04)
[2022-10-17] MEDS: IPRATROPIUM 0.5 MG/2.5 ML NEBU INHALATION SCH ×3 (09:07→21:04)
[2022-10-17] MEDS: ALBUTEROL NEBULIZED 2.5 MG/3 ML INHALATION SCH ×3 (09:07→21:04)
--- NOTE | 2022-10-17 11:46 | CT ---
EXAMINATION TYPE: CT chest wo con DATE OF EXAM: 10/17/2022 COMPARISON: 08/04/2015, chest x-ray 10/16/2022 HISTORY: Lung density. Patient having no complaints at time of scan. CT DLP: 623.4 mGycm, Automated exposure control for dose reduction was used. CONTRAST: Performed injected with 0 mL of Isovue 300. TECHNIQUE: Axial images were obtained at 5 mm thick sections. Reconstructed images are reviewed on Sav[employer] computer in the coronal plane. FINDINGS: Portion of the thyroid visualized is normal. No suspicious lung nodules or focal infiltrates are present. Cavitary lesion at the right lung base i s not identified. There may be some very minimal subsegmental atelectasis of the right base. I No enlarged mediastinal or hilar adenopathy is evident. The ascending aorta diameter at the level o f the main pulmonary artery is 3.6 cm. The main pulmonary artery diameter at the bifurcation is 2.8 cm. Mild coronary artery calcification is present. Limited CT sections are obtained through the upper abdomen. Abdomen is essentially unremarkable. IMPRESSIONS: 1. Minimal right basilar atelectasis. No suspicious masses are identified.
--- NOTE | 2022-10-17 13:36 | PN ---
PROGRESS NOTE DATE OF SERVICE: 10/17/2022 SUBJECTIVE: This is a 77-year-old gentleman who was admitted after left hip arthroplasty, had abnormal chest x-ray. Right-sided cavitary lesion was suspected. A CAT scan which I ordered today showed minimal right basilar atelectasis. No suspicious masses noted. No fever, no cough. OBJECTIVE: VITAL SIGNS: Pulse is 63, blood pressure 147/64, respirations 16. CHEST: Few scattered rhonchi, no crackles. CARDIOVASCULAR: S1, S2 muffled. ABDOMEN: Soft. LABORATORY DATA: Noted. ASSESSMENT: 1. Status post left hip arthroplasty. 2. Possible atelectasis on the right side. 3. Asthmatic bronchitis. 4. Gastroesophageal reflux disease. 5. Hypertension. 6. Hyperlipidemia. 7. Multiple medical issues. 8. History of EtOH. RECOMMENDATIONS AND DISCUSSION: I recommend to continue current medications, continue symptomatic treatment. Otherwise, closely follow with Orthopedic surgery. Continue the bronchodilators, incentive spirometry, and DVT prophylaxis. MMODL / IJN: [id number] /
[2022-10-17] MEDS: SODIUM CHLORIDE 0.9% 1,000 ML IV SCH (20:37)
[2022-10-17] MEDS: SENNOSIDES-DOCUSATE SODIUM 1 EACH TAB PO SCH (20:38)
[2022-10-17] MEDS: BACLOFEN 10 MG TAB PO SCH (20:48)
[2022-10-18] MEDS: SODIUM CHLORIDE 0.9% 1,000 ML IV SCH ×2 (05:58→07:56)
[2022-10-18] MEDS: LACTATED RINGERS 1,000 ML IV SCH (05:59)
[2022-10-18] MEDS: HYDROcodone/APAP 7.5-325MG 1 EACH TAB PO PRN ×2 (06:56→12:22)
[2022-10-18] MEDS: MAGNESIUM OXIDE 400 MG TAB PO SCH (07:55)
[2022-10-18] MEDS: ASPIRIN 81 MG PO SCH (07:55)
[2022-10-18] MEDS: ISOSORBIDE MONONITRATE ER 30 MG TAB.ER.24H PO SCH (07:55)
[2022-10-18] MEDS: METOPROLOL TARTRATE 25 MG TAB PO SCH (07:55)
[2022-10-18] MEDS: ATORVASTATIN 40 MG TAB PO SCH (07:56)
[2022-10-18] MEDS: PANTOPRAZOLE 40 MG TABLET PO SCH (07:56)
[2022-10-18] MEDS: MULTIVITAMINS, THERA 1 EACH TAB PO SCH (07:56)
[2022-10-18] MEDS: CHOLECALCIFEROL 25 MCG (1000 IU) TABLET PO SCH (07:56)
[2022-10-18 08:42] VITALS: BP 158/73; RESP 20; TEMP 97.7
[2022-10-18] MEDS: ALBUTEROL NEBULIZED 2.5 MG/3 ML INHALATION SCH ×2 (09:15→12:40)
[2022-10-18] MEDS: IPRATROPIUM 0.5 MG/2.5 ML NEBU INHALATION SCH ×2 (09:15→12:40)
[2022-10-18] MEDS: SYMBICORT 160-4.5 MCG INHALER INHALATION SCH (09:15)
--- NOTE | 2022-10-18 12:43 | P.DS ---
Providers Expected date of discharge: 10/18/22 Attending physician: Jacob Horvath Consults: 10/16/22 10:23 Consult Physician Routine Consulting Provider: Rm Galvan Consult Reason/Comments: medical management Do you want consulting provider notified?: Yes Primary care physician: Andres Brown - Discharge Diagnosis(es) (1) Primary localized osteoarthritis of left hip Current Visit: Yes Status: Acute (2) Status post total replacement of left hip Current Visit: Yes Status: Acute Hospital Course: This is a 77-year-old male with known history of degenerative arthritis of the left hip. The patient presented for evaluation as an outpatient. After discus barney and consideration patient elects to proceed with total hip arthroplasty. The patient is seen preoperatively by Dr. Horvath and medically cleared for surgery by their primary care physician. Patient is admitted to [facility] on 10/16/2022 for total hip arthroplasty. The procedure is performed without complication or sequelae. The patient is doing well postoperatively. Labs and vital signs are stable on day of discharge. On day of discharge patient's hip incision is healing well. There is minimal erythema. There is no drainage noted at this time. There is minimal soft tissue swelling to the hip and thigh. Patient has full foot and ankle motion without difficulty or pain. Calf is soft and nontender to palpation. Neurovascular status to the left lower extremity is intact. Patient is discharged home in good condition. Please see med rec for accurate list of home medications. Plan - Discharge Summary Discharge Rx Participant: Yes New Discharge Prescriptions: New Aspirin [Adult Low Dose Aspirin EC] 81 mg PO BID 30 Days #60 tab HYDROcodone/APAP 7.5-325MG [[place] 7.5-325] 1 - 2 tab PO Q6H PRN #32 tab PRN Reason: Pain Budesonide-Formot 160-4.5 Mcg [Symbicort 160-4.5 Mcg Inhaler] 2 puff INHALATION RT-BID #1 each Sennosides [Senokot] 2 tab PO DAILY PRN #60 tablet PRN Reason: Constipation No Action Baclofen 10 mg PO HS Aspirin [Adult Low Dose Aspirin EC] 81 mg PO DAILY Pantoprazole [Protonix] 40 mg PO DAILY Isosorbide Mononitrate ER [Imdur] 30 mg PO DAILY Metoprolol Tartrate [Lopressor] 25 mg PO BID tab Nitroglycerin Sl Tabs [Nitrostat] 0.4 mg SUBLINGUAL Q5M PRN tab PRN Reason: Chest Pain HYDROcodone/APAP 10-325MG [[place] 10-325] 1 tab PO Q8HR Cholecalciferol [Vitamin D3 (25 Mcg = 1000 Iu)] 25 mcg PO DAILY Magnesium Oxide [Magnesium] 500 mg PO DAILY Atorvastatin [Lipitor] 40 mg PO DAILY Multivit-Min/FA/Lycopen/Lutein [Centrum Silver Men Tablet] 1 each PO DAILY Discharge Medication List Aspirin [Adult Low Dose Aspirin EC] 81 mg PO DAILY 10/24/18 [History] Baclofen 10 mg PO HS 10/24/18 [History] Pantoprazole [Protonix] 40 mg PO DAILY 02/25/19 [History] Isosorbide Mononitrate ER [Imdur] 30 mg PO DAILY 03/24/20 [History] Metoprolol Tartrate [Lopressor] 25 mg PO BID tab 03/25/20 [Rx] Nitroglycerin Sl Tabs [Nitrostat] 0.4 mg SUBLINGUAL Q5M PRN tab 03/25/20 [Rx] HYDROcodone/APAP 10-325MG [[place] 10-325] 1 tab PO Q8HR 05/26/20 [History] Cholecalciferol [Vitamin D3 (25 Mcg = 1000 Iu)] 25 mcg PO DAILY 04/04/22 [History] Magnesium Oxide [Magnesium] 500 mg PO DAILY 04/04/22 [History] Atorvastatin [Lipitor] 40 mg PO DAILY 10/12/22 [History] Multivit-Min/FA/Lycopen/Lutein [Centrum Silver Men Tablet] 1 each PO DAILY 10/12/22 [History] Aspirin [Adult Low Dose Aspirin EC] 81 mg PO BID 30 Days #60 tab 10/16/22 [Rx] HYDROcodone/APAP 7.5-325MG [[place] 7.5-325] 1 - 2 tab PO Q6H PRN #32 tab 10/16/22 [Rx] Sennosides [Senokot] 2 tab PO DAILY PRN #60 tablet 10/16/22 [Rx] Budesonide-Formot 160-4.5 Mcg [Symbicort 160-4.5 Mcg Inhaler] 2 puff INHALATION RT-BID #1 each 10/17/22 [Rx] Follow up Appointment(s)/Referral(s): David Mcelroy DO [Doctor of Osteopathic Medicine] - 1 Week [facility] [NON-STAFF] - As Needed ([facility] will call you to schedule your in home physical therapy visits. ) Jacob Horvath DO [Doctor of Osteopathic Medicine] - 2 Weeks Patient Instructions/Handouts: Anterior Hip Replacement (DC) Activity/Diet/Wound Care/Special Instructions: Weightbearing as tolerated with walker. Leave dressing intact. Dressing may be removed by home care nurse or by patient in 7 days. Then change dressing twice daily until follow up. May shower with initial dressing intact and after removal. If dressing become saturated, please remove. Please take aspirin 81mg twice daily for 30 days to prevent blood clots. Recommend use of compression stockings daily until follow up to help prevent swelling and blood clots. May remove at night before sleeping. [facility] with [facility] 2 [facility] and call with any questions or concerns, . Discharge Disposition: HOME WITH HOME HEALTH SERVICES
[2022-10-18 12:56] VITALS: PULSE 76
--- NOTE | 2022-10-18 13:09 | PN ---
PROGRESS NOTE DATE OF SERVICE: 10/18/2022 SUBJECTIVE: This 77-year-old gentleman was admitted after left hip arthroplasty, also had normal CT scan of the chest. No chest pain, no palpitation. PHYSICAL EXAMINATION: VITAL SIGNS: Pulse is 98, blood pressure is 150/70, respirations 20. CHEST: Few scattered rhonchi. ABDOMEN: Soft. NERVOUS SYSTEM: No focal deficits. LABORATORY DATA: Reviewed. ASSESSMENT: 1. Status post left hip arthroplasty. 2. Possible atelectasis of the right side. 3. Asthmatic bronchitis. 4. Multiple medical issues. RECOMMENDATIONS: Recommended to continue current management, continue symptomatic treatment. I will recommend bronchodilators as an outpatient. Follow closely with Dr. Brown, primary as an outpatient. Rest of the recommendations per Orthopedic Surgery. MMODL / IJN: [id number] /
== END 2022-10-18 14:16 | disposition home health service (06) ==
LOC: OR 07:25 → 4SSUR 10:04 → OR 10-18 14:16
PROVIDERS: ATTEND Orthopaedic Surgery
DX: M16.12 Unilateral primary osteoarthritis, left hip (principal); I25.119 Atherosclerotic heart disease of native coronary artery with unspecified angina pectoris; I10 Essential (primary) hypertension; E78.5 Hyperlipidemia, unspecified; J45.909 Unspecified asthma, uncomplicated; M19.90 Unspecified osteoarthritis, unspecified site; K21.9 Gastro-esophageal reflux disease without esophagitis; Z79.82 Long term (current) use of aspirin; Z79.899 Other long term (current) drug therapy; Z95.5 Presence of coronary angioplasty implant and graft; Z90.49 Acquired absence of other specified parts of digestive tract; Z87.891 Personal history of nicotine dependence; F10.20 Alcohol dependence, uncomplicated
CPT/HCPCS: 27130; 64447; 76942; 94640 ×6; 97116; 97161; 97165; 86900; 86901; 85025; 86850; 88300; 73501; 71045; 71250; C1776; J1100; J0690 ×2; J2405; J3010; J2795; J2704; J1170

== ENCOUNTER → 2022-10-29 | Outpatient (CLI) | payer MEDICARE ==
--- NOTE | 2022-10-29 14:39 | US ---
EXAMINATION TYPE: US venous doppler duplex LE LT DATE OF EXAM: 10/29/2022 1:59 PM COMPARISON: NONE CLINICAL INDICATION: Male, 77 years old with history of I80.9; Left hip replacement 10/16/22, pain and edema left leg SIDE PERFORMED: left TECHNIQUE: The lower extremity deep venous system is examined utilizing real time linear array sonog ignacio with graded compression, doppler sonography and color-flow sonography. VESSELS IMAGED: Common Femoral Vein Deep Femoral Vein Greater Saphenous Vein * Femoral Vein Popliteal Vein Small Saphenous Vein * Proximal Calf Veins (* superficial vessels) Left Leg: No evidence of DVT IMPRESSION: No evidence of DVT
== END | disposition home or self-care (01) ==
LOC: RADUSWWP 13:25
PROVIDERS: ATTEND Orthopaedic Surgery
DX: I80.9 Phlebitis and thrombophlebitis of unspecified site (principal); M16.12 Unilateral primary osteoarthritis, left hip; E78.49 Other hyperlipidemia; Z47.1 Aftercare following joint replacement surgery; Z96.642 Presence of left artificial hip joint

== ENCOUNTER → 2023-05-01 | Outpatient (CLI) | payer MEDICARE ==
[2023-05-01 17:39] LABS: ALT 25 U/L (10-49); AST 23 U/L (14-35); Alkaline Phosphatase 136 U/L (41-126); BUN/Creat Ratio 13.89 Ratio (12.00-20.00); Blood Urea Nitrogen 12.5 mg/dL (9.0-27.0); Calcium 8.9 mg/dL (8.7-10.3); Carbon Dioxide 24.5 mmol/L (21.6-31.8); Chloride 109 mmol/L (96-109); Globulin 2.1 d/dL (1.6-3.3); Glucose 107 mg/dL (70-110); LDL Cholesterol,Calculated 62.2 mg/dL (0.0-131.0); Potassium 4.3 mmol/L (3.5-5.5); Sodium 144 mmol/L (135-145); Total Bilirubin 0.8 mg/dL (0.3-1.2); Total Protein 6.1 d/dL (6.2-8.2)
== END | disposition home or self-care (01) ==
LOC: LABWHC1 11:19
PROVIDERS: ATTEND Internal Medicine Interventional Cardiology
DX: I10 Essential (primary) hypertension (principal); E78.2 Mixed hyperlipidemia
CPT/HCPCS: 36415; 80053; 80061

== ENCOUNTER 2023-06-19 12:46 | Observation (INO) | payer MEDICARE ==
[2023-06-19] MEDS ORDERED: SODIUM CHLORIDE 0.9% 500 ML 500 ML IV STA (13:28)
[2023-06-19 13:38] LABS: Basophils # (A) 0.1 k/uL (0-0.2); Basophils % (A) 1 %; Eosinophils # (A) 0.4 k/uL (0-0.7); Eosinophils % (A) 4 %; HCT 41.7 % (39.0-53.0); Lymphocytes # (A) 2.1 k/uL (1.0-4.8); Lymphocytes % (A) 19 %; MCH 31.5 pg (25.0-35.0); MCHC 33.6 g/dL (31.0-37.0); MCV 93.7 fL (80.0-100.0); Mean Platelet Volume 9.2; Monocytes # (A) 0.5 k/uL (0-1.0); Monocytes % (A) 5 %; Neutrophils # (A) 7.6 k/uL (1.3-7.7); Neutrophils % (A) 70 %; Platelet Count 234 k/uL (150-450); RBC 4.45 m/uL (4.30-5.90); RDW 12.2 % (11.5-15.5); WBC 10.9 k/uL (3.8-10.6)
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
[2023-06-19 13:58] LABS: INR 0.9 (<1.2); Partial Thromboplastin Time 24.7 sec (22.0-30.0); Prothrombin Time 10.5 sec (10.0-12.5)
[2023-06-19 14:07] LABS: ALT 23 U/L (4-49); AST 26 U/L (17-59); African American GFR (CKD) 72 (>60 ml/min/1.73 sqM); Alkaline Phosphatase 104 U/L (38-126); Anion Gap 12 mmol/L; Blood Urea Nitrogen 20 mg/dL (9-20); Calcium 9.2 mg/dL (8.4-10.2); Carbon Dioxide 22 mmol/L (22-30); Chloride 107 mmol/L (98-107); Creatine Kinase 68 U/L (55-170); Glucose 119 mg/dL (74-99); Non-African American GFR(CKD) 62 (>60 ml/min/1.73 sqM); Potassium 4.4 mmol/L (3.5-5.1); Sodium 141 mmol/L (137-145); Total Bilirubin 0.9 mg/dL (0.2-1.3); Total Protein 6.7 g/dL (6.3-8.2)
--- NOTE | 2023-06-19 14:17 | XR ---
EXAMINATION TYPE: XR chest 2V DATE OF EXAM: 06/19/2023 COMPARISON: 10/16/2022 TECHNIQUE: PA and lateral views submitted. HISTORY: Left-sided numbness FINDINGS: The lungs are clear and there is no pneumothorax, pleural effusion, or focal pneumonia. Heart size normal and no overt failure. Osseous structures demonstrate hypertrophic and degenerative changes of the spine. AC joint arthropathy. IMPRESSION: 1. No acute process.
--- NOTE | 2023-06-19 14:40 | CT ---
EXAMINATION TYPE: CT brain wo con DATE OF EXAM: 06/19/2023 HISTORY: Left arm and facial numbness yesterday. Acute onset neuro deficit. CT DLP: 1204.6 mGycm. Automated Exposure Control for Dose Reduction was Utilized. TECHNIQUE: CT scan of the head is performed without contrast. COMPARISON: None. FINDINGS: There is no acute intracranial hemorrhage or midline shift identified. Ventricles and sul ci within normal limits in size for patient's age. There is mild low-attenuation in the periventricu lar white matter most likely consistent with chronic small vessel ischemic change. The globes are in tact and the visualized sinuses are clear. IMPRESSION: No acute intracranial hemorrhage or midline shift. MRI noted more sensitive to further e valuate.
--- NOTE | 2023-06-19 15:06 | CT ---
EXAMINATION TYPE: CT angio head neck DATE OF EXAM: 06/19/2023 HISTORY: Left arm and facial numbness yesterday. COMPARISON: None. CT DLP: 625.8 mGycm. Automated Exposure Control for Dose Reduction was Utilized. TECHNIQUE: CTA scan of the head and neck is performed with IV Contrast, patient injected with 65ml m L of Isovue 370, axial images are obtained, coronal and sagittal reformatted images are reviewed. 3D reconstructed images are created on an independent workstation and reviewed. FINDINGS: Carotid/Vascular Structures: Mild calcified plaque at origin of the right brachiocephalic artery. Nor mal three-vessel origin without significant stenosis. Tortuous course to the common carotid arteries bilaterally without significant plaque or stenosis. There is more moderate calcified plaque at right carotid bulb extending into proximal internal carotid artery without significant stenosis. Patent rig ht external carotid artery is seen. Similar findings on the left identified. Codominant vertebral art eries are patent to the basilar junction. No large vessel occlusion or aneurysm in the posterior circ ulation. Patent anterior communicating artery is seen. There is probable 4 mm aneurysm at this level image 34 corresponding to mip image 9 but this should be correlated with raw data images as I am not provided thin cut imaging. Tortuous vessel could mimic aneurysm on cuts provided. No large vessel occ lusion is seen. Other: Hypodense nodules in the bilateral thyroid lobes are present. Advise thyroid ultrasound to fur ther investigate if this is not known finding. Multilevel spurring and disc space narrowing in the cervical thoracic spine is seen. IMPRESSION: 1. No significant stenosis in common or internal carotid arteries bilaterally. 2. 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 Follow-up advised. NASCET criteria was used in interpretation of this exam?
[2023-06-19] MEDS ORDERED: ASPIRIN 325 MG TAB PO STA (15:53)
[2023-06-19] MEDS ORDERED: THIAMINE 100 MG/ML 2 ML VIAL IM STA (20:08)
[2023-06-19] MEDS ORDERED: LORazepam 1 MG TAB PO PRN ×3 (20:14)
[2023-06-19] MEDS ORDERED: LORazepam 0.5 MG TAB PO PRN (20:14)
[2023-06-19] MEDS: METOPROLOL TARTRATE 25 MG TAB PO SCH (20:54)
[2023-06-19] MEDS: BACLOFEN 10 MG TAB PO SCH (20:54)
[2023-06-19] MEDS: ATORVASTATIN 40 MG TAB PO SCH (20:54)
[2023-06-20] MEDS: HYDROcodone/APAP 10-325MG 1 EACH TAB PO PRN ×2 (01:55→23:25)
[2023-06-20] MEDS: ISOSORBIDE MONONITRATE ER 30 MG TAB.ER.24H PO SCH (09:00)
[2023-06-20] MEDS: THIAMINE 100 MG TAB PO SCH (09:00)
[2023-06-20] MEDS: PANTOPRAZOLE 40 MG TABLET PO SCH (09:00)
[2023-06-20] MEDS: ASPIRIN 325 MG TAB PO SCH (09:00)
[2023-06-20] MEDS: MULTIVITAMINS, THERA 1 EACH TAB PO SCH (09:00)
[2023-06-20] MEDS: METOPROLOL TARTRATE 25 MG TAB PO SCH ×2 (09:00→19:45)
[2023-06-20] MEDS: CHOLECALCIFEROL 25 MCG (1000 IU) TABLET PO SCH (09:00)
[2023-06-20] MEDS: LOSARTAN 50 MG TAB PO SCH (09:00)
[2023-06-20 09:37] LABS: Chol/HDL Ratio 4.26 Ratio; LDL Cholesterol,Calculated 73.4 mg/dL (0.0-131.0)
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
--- NOTE | 2023-06-20 10:29 | CA ---
Transthoracic Echo Report Name: Trevon Rocha Age: 78 Gender: M : 1945 Exam Date: 06/20/2023 07:48 Exam Location: [facility] Ht (in): 69 Wt (lb): 225 Ordering Physician: Lio Mcelroy MD Attending/Referring Phys: Weight Loss Sales Consultant Paz Piña RDCS Procedure CPT: Indications: stroke Cardiac Hx: Technical Quality: Good Contrast 1: Total Dose (mL): Contrast 2: Total Dose (mL): MEASUREMENTS (Male / Female) Normal Values 2D ECHO LV Diastolic Diameter PLAX 5.4 cm 4.2 - 5.9 / 3.9 - 5.3 cm LV Systolic Diameter PLAX 4.2 cm IVS Diastolic Thickness 1.1 cm 0.6 - 1.0 / 0.6 - 0.9 cm LVPW Diastolic Thickness 1.3 cm 0.6 - 1.0 / 0.6 - 0.9 cm LV Relative Wall Thickness 0.4 RV Internal Dim ED PLAX 3.6 cm LA Systolic Diameter LX 4.5 cm 3.0 - 4.0 / 2.7 - 3.8 cm LV Diastolic Volume MOD 4C 94.4 cm??? LV Systolic Volume MOD 4C 44.4 cm??? LV Ejection Fraction MOD 4C 53.0 % LV Cardiac Index MOD 4C 1171.8 cm???/min???m??? LV Diastolic Length 4C 8.7 cm LV Systolic Length 4C 7.3 cm LV Diastolic Volume MOD 2C 117.7 cm??? LV Systolic Volume MOD 2C 41.6 cm??? LV Ejection Fraction MOD 2C 64.7 % LV Cardiac Index MOD 2C 1783.9 cm???/min???m??? LV Diastolic Length 2C 9.0 cm LV Systolic Length 2C 7.6 cm LA Volume 85.9 cm??? 18 - 58 / 22 - 52 cm??? LA Volume Index 37.9 cm???/m??? 16 - 28 cm???/m??? M-MODE Aortic Root Diameter MM 3.6 cm MV E Point Septal Separation 0.8 cm AV Cusp Separation MM 2.5 cm DOPPLER AV Peak Velocity 135.3 cm/s AV Peak Gradient 7.3 mmHg MV Area PHT 2.3 cm??? Mitral E Point Velocity 113.9 cm/s Mitral A Point Velocity 72.8 cm/s Mitral E to A Ratio 1.6 MV Deceleration Time 323.2 ms MV E' Velocity 8.2 cm/s Mitral E to MV E' Ratio 13.9 TR Peak Velocity 251.5 cm/s TR Peak Gradient 25.3 mmHg Right Ventricular Systolic Press 30.0 mmHg FINDINGS Left Ventricle Left ventricular ejection fraction is estimated at 55-60 %. Left ventricular cavity size normal. Right Ventricle Mild right ventricular dilatation. Right ventricular systolic pressure within normal limits. Right Atrium Normal right atrial size. Left Atrium Mildly increased left atrial diameter. Moderately increased left atrial volume. Mildly increased left atrial area. Mitral Valve Structurally normal mitral valve. No mitral stenosis, regurgitation or prolapse. Aortic Valve Trileaflet aortic valve. No aortic valve stenosis or regurgitation. Tricuspid Valve Structurally normal tricuspid valve. Mild tricuspid regurgitation. Pulmonic Valve Structurally normal pulmonic valve. No pulmonic regurgitation. Pericardium No pericardial effusion. Aorta Normal size aortic root and proximal ascending aorta. CONCLUSIONS Normal LV systolic function Previewed by: Dr. Prasanth Call MD (Electronically Signed) Final Date: 20 June 2023 10:27
[2023-06-20] MEDS ORDERED: LORazepam 2 MG/ML INJ IV ONE (10:58)
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
[2023-06-20 13:02] VITALS: RESP 16
[2023-06-20] MEDS: CLOPIDOGREL 75 MG TAB PO SCH (14:53)
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
[2023-06-20] MEDS: ATORVASTATIN 40 MG TAB PO SCH (19:44)
[2023-06-20] MEDS: HEPARIN SODIUM,PORCINE 5,000 UNIT/ML 1 ML VIAL SQ SCH (19:45)
[2023-06-20] MEDS: BACLOFEN 10 MG TAB PO SCH (19:45)
[2023-06-21 08:04] VITALS: BP 175/75; PULSE 60; TEMP 98
[2023-06-21] MEDS: CHOLECALCIFEROL 25 MCG (1000 IU) TABLET PO SCH (08:22)
[2023-06-21] MEDS: CLOPIDOGREL 75 MG TAB PO SCH (08:22)
[2023-06-21] MEDS: METOPROLOL TARTRATE 25 MG TAB PO SCH (08:22)
[2023-06-21] MEDS: MULTIVITAMINS, THERA 1 EACH TAB PO SCH (08:22)
[2023-06-21] MEDS: LOSARTAN 50 MG TAB PO SCH (08:22)
[2023-06-21] MEDS: ASPIRIN 325 MG TAB PO SCH (08:22)
[2023-06-21] MEDS: THIAMINE 100 MG TAB PO SCH (08:23)
[2023-06-21] MEDS: PANTOPRAZOLE 40 MG TABLET PO SCH (08:23)
[2023-06-21] MEDS: HEPARIN SODIUM,PORCINE 5,000 UNIT/ML 1 ML VIAL SQ SCH (08:23)
[2023-06-21] MEDS: ISOSORBIDE MONONITRATE ER 30 MG TAB.ER.24H PO SCH (08:23)
[2023-06-21] MEDS: HYDROcodone/APAP 10-325MG 1 EACH TAB PO PRN (08:28)
[2023-06-21] MEDS ORDERED: LORazepam 2 MG/ML INJ IV STA (09:52)
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
--- NOTE | 2023-06-21 11:13 | MR ---
EXAMINATION TYPE: MR brain wo/w con DATE OF EXAM: 06/21/2023 COMPARISON: CT 06/19/2023 HISTORY: Stroke TECHNIQUE: Multiplanar, multisequence images of the brain and brainstem is performed without and with IV contras t, utilizing 10 mL intravenous Gadavist . FINDINGS: Diffusion weighted images demonstrate no evidence of a recent infarct or other diffusion ab normality. There is no extra-axial fluid collection or significant white matter signal abnormality. Moderate generalized degenerative change with focal diffuse areas of abnormal signal throughout this white matter bilaterally most typical remote microvascular ischemia. No midline shift or mass effect. A small focal area of abnormal signal involving the right basal ganglia most compatible with tiny re mote lacunar infarct. Prominent Virchow-Brock spaces bilaterally. Midline structures demonstrate normal morphology. The craniocervical junction appears within normal limits. Post contrast images demonstrate no abnormal enhancement. The dural venous sinuses appear pa tent. Mild chronic sinusitis and the globes are intact. IMPRESSION: 1. Moderate degenerative change and evidence of nonspecific white matter findings most typical of rem ote microvascular ischemia.
--- NOTE | 2023-06-21 11:53 | P.PN ---
Subjective Progress Note Date: 06/21/23 I am following-up with patient and he feels back to baseline. He denies of any new neurological issues. Objective - Vital Signs Vital signs: Vital Signs Temp 98 F 06/21/23 07:00 Pulse 60 06/21/23 07:00 Resp 16 06/21/23 08:15 BP 175/75 06/21/23 07:00 Pulse Ox 98 06/21/23 07:00 FiO2 Intake & Output 06/20/23 06/21/23 06/21/23 18:59 06:59 18:59 Intake Total 416 180 Balance 416 180 Intake: Oral 416 180 Other: Voiding Method Toilet Toilet Toilet # Voids 3 2 - Exam GENERAL: The patient is lying in bed and is not in acute distress. NEUROLOGICAL: Higher mental function: The patient is awake, alert, oriented to self, place and time. Patient is following commands. No aphasia and no neglect. Cranial nerves: The pupils are round, equal and reactive to light and accommodation. Visual albert are full to confrontation throughout. Extraocular movement is intact no nystagmus is noted. Facial sensation is normal to touch throughout. The facial strength is normal throughout. Hearing is mildly to moderately bilaterally to hand rub. Tongue is midline and moved [id number] without any difficulty. No dysarthria is noted. Shoulder shrug is normal bilaterally. Motor: Gait is normal. Strength is 5 over 5 throughout. Normal tone and bulk. Cerebellum: Normal finger to nose heel to mehta bilaterally. Sensation: Sensation is normal to touch throughout. Reflexes (right/left): 2+ throughout. Plantars are downgoing bilaterally. Some of the workup during his hospital visit consisted of: Sodium, calcium and BUN/Cr are normal. Lipid panel: TG 226, cholestrol 155, LDL 73 and HDL 36 TSH: 1.030 CT head is reported as no acute intracranial hemorrhage or midline shift. MRI noted more sensitive to further evaluate. I personally reviewed the CT and agree with report. CTA head and neck: No significant stenosis in common or internal carotid arteries bilaterally. 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 Follow-up advised. 2D Echo: Normal LV systolic function. - Labs CBC & Chem 7: 06/19/23 13:31 06/19/23 13:31 Assessment and Plan Assessment: This is a 78 y/o gentleman who presents because transient left face and left upper extremity numbness and weakness this Saturday at 1pm lasting 10-15 minutes. Likely transient ischemic attack: Left facial and left upper extremity weakness and numbness that improved. Chest pain Uncontrolled Hypertension (has log of blood pressure and SBP ranging 150-160's). Hypercholestremia Plan: Patient is on home dose of aspirin 81 mg daily and ED increase it to 325 daily. I start the patient on Plavix 75 mg daily. Started him on Lipitor 40 mg daily at bedtime. Pending MRI the brain. Continue checks Cardiac monitoring PT OT and [employer] are consulted Cardiology is consulted for chest pain We'll defer the rest of the medical management to primary team Recommend the patient to follow-up with neurologist as outpatient within 2 weeks. For DVT prophylaxis On subcu heparin 5000 units every 12 hours If MRI Brain is negative, patient is clear for discharge from neurological perspective. The plan is discussed with patient, primary team N.P. and his nurse. Time with Patient: Less than 30
== END 2023-06-21 12:21 | disposition home or self-care (01) ==
LOC: EC 12:46 → 6NMEDSUR 15:53
PROVIDERS: ADMIT Internal Medicine; ATTEND Internal Medicine
DX: R20.0 Anesthesia of skin (principal); R20.2 Paresthesia of skin; R53.1 Weakness; R07.9 Chest pain, unspecified; K21.9 Gastro-esophageal reflux disease without esophagitis; E78.00 Pure hypercholesterolemia, unspecified; I10 Essential (primary) hypertension; J45.909 Unspecified asthma, uncomplicated; I25.10 Atherosclerotic heart disease of native coronary artery without angina pectoris; M19.90 Unspecified osteoarthritis, unspecified site; Z87.891 Personal history of nicotine dependence; Z79.51 Long term (current) use of inhaled steroids; Z79.82 Long term (current) use of aspirin; Z79.899 Other long term (current) drug therapy
CPT/HCPCS: 96361 ×2; 96372 ×3; 96374; 99285; 36415; 93005; 93306; 97162; 97166; 80061; 80053; 84443; 82550; 84484 ×2; 85025; 85610; 85730; 71046; 70496; 70450; 70498; 70553; G0378 ×3; J2060; J1644 ×2; J3411; Q9967; A9585

== ENCOUNTER 2023-10-09 17:15 | Emergency (ER) | payer MEDICARE ==
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
[2023-10-09] MEDS: TOPICAL SKIN ADHESIVE 1 EACH AMP TOPICAL ONE (18:48)
[2023-10-09] MEDS: DIPH,PERTUS(ACELL)TETVAC-LF 0.5 ML VIAL IM ONE (18:49)
[2023-10-09 20:20] VITALS: BP 158/98; PULSE 62; RESP 18; TEMP 98
== END 2023-10-09 20:03 | disposition home or self-care (01) ==
LOC: EC 17:15
DX: S61.412A Laceration without foreign body of left hand, initial encounter (principal); Z23 Encounter for immunization; Z87.891 Personal history of nicotine dependence; Z91.09 Other allergy status, other than to drugs and biological substances; W26.8XXA Contact with other sharp object(s), not elsewhere classified, initial encounter
CPT/HCPCS: 12002; 90471; 90715; 99283

== ENCOUNTER → 2024-06-01 | Outpatient (CLI) | payer MEDICARE ==
[2024-06-01 15:30] LABS: NT-Pro-B-Type Natriuretic Pept 1687 pg/mL (0-450)
[2024-06-01 15:34] LABS: BUN/Creat Ratio 12.38 Ratio (12.00-20.00); Blood Urea Nitrogen 16.1 mg/dL (9.0-27.0); Calcium 8.4 mg/dL (8.7-10.3); Carbon Dioxide 23.9 mmol/L (21.6-31.8); Chloride 109 mmol/L (96-109); Glucose 105 mg/dL (70-110); Potassium 4.2 mmol/L (3.5-5.5); Sodium 144 mmol/L (135-145)
== END | disposition home or self-care (01) ==
LOC: LABWHC1 11:42
PROVIDERS: ATTEND Internal Medicine Interventional Cardiology
DX: R06.02 Shortness of breath (principal); R60.0 Localized edema
CPT/HCPCS: 36415; 80048; 83880

== ENCOUNTER → 2024-08-18 | Outpatient (CLI) | payer MEDICARE ==
--- NOTE | 2024-08-18 13:04 | XR ---
EXAMINATION TYPE: XR chest 2V DATE OF EXAM: 08/18/2024 12:52 PM COMPARISON: 06/19/2023 CLINICAL INDICATION: Male, 79 years old with history of R05.9, cough x1 1/2 weeks TECHNIQUE: XR chest 2V view(s) obtained. FINDINGS: The heart size is normal. The pulmonary vasculature is normal. The lungs are clear. IMPRESSION: 1. No acute pulmonary process. [facility], , 08/18/2024 1:01 PM
== END | disposition home or self-care (01) ==
LOC: RADXRMAIN 12:37
PROVIDERS: ATTEND Internal Medicine
DX: R05.9 Cough, unspecified (principal)
CPT/HCPCS: 71046